=== PATIENT | male | born 1955 | race Hispanic/Latino ===

== ENCOUNTER 2016-09-18 12:42 | Emergency (ER) | payer MEDICAID ==
[2016-09-18 12:42] VITALS: BMI 31.5
[2016-09-18 12:50] VITALS: BP 116/71; PULSE 74; RESP 18; TEMP 99; O2SAT 99
--- NOTE | 2016-09-18 13:38 | ED PDOC ---
HPI: Trauma/Fall - HPI Time Seen by Provider: 09/18/16 12:58 Chief Complaint (Nursing): Abnormal Skin Integrity History Per: Patient History/Exam Limitations: no limitations Onset/Duration Of Symptoms: Hrs Additional Complaint(s): 61-year-old male, pMHx includes HIV, Hypertension, COPD, Depression and Anxiety , presents to the emergency department with complaints of mechanical fall. Patient states he tripped and fell last night, sustaining injury to the left side of his face and head. Denies headache, dizziness, loss of consciousness, peripheral weakness/parasthesias, neck pain, or any other injury. No other complaints at this time Past Medical History Reviewed: Historical Data, Nursing Documentation, Vital Signs Vital Signs: Last Vital Signs Temp 99.0 F 09/18/16 12:45 Pulse 74 09/18/16 12:45 Resp 18 09/18/16 12:45 BP 116/71 09/18/16 12:45 Pulse Ox 99 09/18/16 13:45 - Medical History PMH: Anxiety, COPD, Depression, HIV (AIDS - Unknown CD4 count ), HTN, Pneumonia - Family History Family History: States: Unknown Family Hx - Home Medications Home Medications: Ambulatory Orders Medication Instructions Recorded Darunavir [Prezista] 800 mg PO DAILY 08/10/14 Methadone 10 mg PO BID PRN 08/10/14 Ritonavir [Norvir] 100 mg PO DAILY 08/10/14 Amitriptyline HCl 100 mg PO HS 09/22/15 Clonazepam [Klonopin] 1 mg PO QAM 09/22/15 Clonazepam [Klonopin] 2 mg PO HS 09/22/15 Dapsone 100 mg PO DAILY 09/22/15 Dolutegravir Sodium [Tivicay] 50 mg PO DAILY 09/22/15 PARoxetine [Paxil] 30 mg PO DAILY 09/22/15 Rilpivirine HCl [Edurant] 25 mg PO DAILY 09/22/15 Dapsone 100 mg PO DAILY #0 tab 09/27/15 Naproxen [Naprosyn] 500 mg PO Q12H #20 tab 09/18/16 - Allergies Allergies/Adverse Reactions: Allergies Allergy/AdvReac Type Severity Reaction Status Date / Time Penicillins Allergy REDNESS Verified 09/18/16 12:45 sulfamethoxazole Allergy FATIGUE Verified 09/25/15 20:34 [From Bactrim] trimethoprim [From Bactrim] Allergy FATIGUE Verified 09/25/15 20:34 Review of Systems ROS Statement: Except As Marked, All Systems Reviewed And Found Negative Constitutional: Negative for: Fever Cardiovascular: Negative for: Chest Pain, Palpitations Respiratory: Negative for: Shortness of Breath Gastrointestinal: Negative for: Nausea, Vomiting Musculoskeletal: Negative for: Neck Pain, Back Pain Skin: Negative for: Rash Neurological: Negative for: Weakness, Numbness, Headache, Dizziness Physical Exam - Reviewed Nursing Documentation Reviewed: Yes Vital Signs Reviewed: Yes - Physical Exam Appears: Positive for: Non-toxic, No Acute Distress Head Exam: Positive for: ATRAUMATIC, NORMOCEPHALIC Skin: Positive for: Warm, Dry. Negative for: Rash Eye Exam: Positive for: EOMI, PERRL, Periorbital swelling (left), Periorbital tenderness (left), Other (superficial laceration to left periorbital area) Neck: Positive for: Painless ROM Cardiovascular/Chest: Positive for: Regular Rate, Rhythm Respiratory: Positive for: Normal Breath Sounds. Negative for: Accessory Muscle Use, Respiratory Distress Extremity: Positive for: Normal ROM Neurologic/Psych: Positive for: Alert, Oriented (no focal neuro deficits). Negative for: Motor/Sensory Deficits - Laboratory Results Result Diagrams: 09/18/16 13:26 09/18/16 13:26 - ECG O2 Sat by Pulse Oximetry: 99 Medical Decision Making Medical Decision Making: Impression: mechanical fall Plan: * CT Head, Spine, Orbits/Facial * CMP * CBC * Reassess and Disposition Scribe Attestation: Documented by Alton Cronin acting as a scribe for Adilson Hill MD. Provider Attestation: All medical record entries made by the Scribe were at my direction and personally dictated by me. I have reviewed the chart and agree that the record accurately reflects my personal performance of the history, physical exam, medical decision making, and the department course for this patient. I have also personally directed, reviewed, and agree with the discharge instructions and disposition. Disposition - Clinical Impression Clinical Impression: Periorbital hematoma of left eye - Patient ED Disposition Is Patient to be Admitted: No Counseled Patient/Family Regarding: Studies Performed, Diagnosis, Need For Followup, Rx Given - Disposition Disposition: Routine/Home Disposition Time: 15:02 Condition: FAIR Prescriptions: Naproxen [Naprosyn] 500 mg PO Q12H #20 tab Instructions: Black Eye (ED), Contusion in Adults (ED), Hematoma (ED)
[2016-09-18 13:46] LABS: BASO # 0.1 K/uL (0.0-0.2); BASO % 0.9 % (0.0-2.0); EOS # 0.1 K/uL (0.0-0.7); EOS % 1.8 % (0.0-4.0); HEMATOCRIT 33.2 % (35.0-51.0); LYMPH # 2.9 K/uL (1.0-4.3); LYMPH % 42.8 % (20.0-40.0); MEAN CORPUSCULAR HGB CONC 32.9 g/dL (33.0-37.0); MONO # 0.6 K/uL (0.0-0.8); MONO % 9.3 % (0.0-10.0); NEUT # 3.1 K/uL (1.8-7.0); NEUT % 45.2 % (50.0-75.0); NRBC % 0.2 % (0.0-0.0); RED CELL DISTRIBUTION WIDTH 16.1 % (11.5-14.5); WHITE BLOOD COUNT 6.9 K/uL (4.8-10.8)
[2016-09-18 13:47] LABS: MEAN CELL VOLUME 91.1 fl (80.0-94.0)
[2016-09-18 13:55] LABS: ALB/GLOB RATIO 0.8 (1.0-2.1); ALKALINE PHOSPHATASE 171 U/L (38-126); ALT/SGPT 77 U/L (21-72); AST/SGOT 105 U/L (17-59); BILIRUBIN,TOTAL 0.8 mg/dl (0.2-1.3); BLOOD UREA NITROGEN 27 mg/dl (9-20); CALCIUM 8.7 mg/dL (8.4-10.2); CARBON DIOXIDE 24 mmol/L (22-30); CHLORIDE 105 mmol/L (98-107); GFR AFRICAN-AMERICAN > 60; GLUCOSE,RANDOM 117 mg/dL (75-110); POTASSIUM 4.5 MMOL/L (3.6-5.0); SODIUM 144 mmol/l (132-148); TOTAL PROTEIN 8.8 G/DL (6.3-8.2)
--- NOTE | 2016-09-18 14:29 | CT ---
PROCEDURE: CT HEAD WITHOUT CONTRAST. HISTORY: r/o bleed COMPARISON: Comparison is made to the previous study dated 09/22/2015 TECHNIQUE: Axial computed tomography images were obtained through the head/brain without intravenous contrast. Radiation dose: Total exam DLP = 1612.66 mGy-cm. FINDINGS: HEMORRHAGE: No intracranial hemorrhage. BRAIN: No mass effect or edema. No atrophy or chronic microvascular ischemic changes. VENTRICLES: Unremarkable. No hydrocephalus. CALVARIUM: Unremarkable. PARANASAL SINUSES: Unremarkable as visualized. No significant inflammatory changes. MASTOID AIR CELLS: Unremarkable as visualized. No inflammatory changes. OTHER FINDINGS: None. IMPRESSION: No evidence of acute intracranial hemorrhage intracranial collection mass effect or midline shift.
--- NOTE | 2016-09-18 14:54 | CT ---
PROCEDURE: CT Cervical Spine without contrast HISTORY: Trauma COMPARISON: None available. TECHNIQUE: Axial computed tomography images were obtained of the cervical spine without the use of intravenous contrast. Coronal and sagittal reformatted images were created and reviewed. Radiation dose: Total exam DLP = 570.88 mGy-cm. FINDINGS: VERTEBRAE: No evidence of acute displaced fracture or subluxation. No evidence of destructive bony lesion. DISCS/SPINAL CANAL/NEURAL FORAMINA: Moderate to mildly severe degenerative changes are seen at the lower cervical spine. Severe narrowing of the disc spaces noted at C5-C6 and C6-C7. Multilevel osteophyte disc bulging complex more prominent at the lower cervical spine. PARASPINAL SOFT TISSUES: Unremarkable. OTHER FINDINGS: None. IMPRESSION: Moderate to mildly severe degenerative changes. No CT evidence of acute displaced fracture or subluxation.
--- NOTE | 2016-09-18 15:00 | CT ---
PROCEDURE: CT ORBITS WITHOUT CONTRAST. HISTORY: trauma COMPARISON: None available. TECHNIQUE: Axial CT images of the orbits were obtained. Coronal and sagittal reformats were generated. Radiation dose: Total exam DLP = 774.22 mGy-cm. FINDINGS: RIGHT ORBIT: RIGHT BONY ORBIT: Normal. RIGHT INTRAORBITAL STRUCTURES: Globe: Normal. Extraocular muscles: Normal. Post septal space: Normal. Optic Nerve: Normal. Lacrimal Apparatus: Normal. RIGHT PRESEPTAL SOFT TISSUES: Normal. LEFT ORBIT: LEFT BONY ORBIT: No evidence of acute fracture. LEFT INTRAORBITAL STRUCTURES: Globe: Normal. Extraocular muscles: Normal. Post septal space: Normal Optic Nerve: Normal. . Lacrimal Apparatus: Normal. LEFT PRESEPTAL SOFT TISSUES: Moderate soft tissue swelling at the left preseptal region extending to the left frontal temporal region OTHER: None. IMPRESSION: No evidence of acute fracture. No evidence of postseptal collection or hematoma. Moderate left periorbital soft tissue swelling and subcutaneous hematoma.
== END 2016-09-18 15:16 | disposition home or self-care (01) ==
LOC: H.ER 12:42
DX: H05.232 Hemorrhage of left orbit (principal); W01.0XXA Fall on same level from slipping, tripping and stumbling without subsequent striking against object, initial encounter; Y92.89 Other specified places as the place of occurrence of the external cause; I10 Essential (primary) hypertension

== ENCOUNTER 2016-09-19 02:21 | Emergency (ER) | payer MEDICAID ==
[2016-09-19] MEDS ORDERED: Oxycodone/Acetaminophen 5/325 mg Tab PO STA (02:43)
[2016-09-19 02:44] VITALS: BMI 30.1
[2016-09-19 02:49] VITALS: RESP 16; TEMP 99; O2SAT 100
--- NOTE | 2016-09-19 02:54 | ED PDOC ---
HPI: Trauma/Fall - HPI Time Seen by Provider: 09/19/16 02:33 Chief Complaint (Nursing): Trauma Chief Complaint (Provider): RUE injury History Per: Patient History/Exam Limitations: no limitations Onset/Duration Of Symptoms: Sudden Onset Additional Complaint(s): Dallas Silver is a 61 y/o male, with a past medical history of HIV and opiate addiction, presenting to the ER on 09/19/2016 for an acute onset of right shoulder pain s/p mechanical fall. Patient states he stepped and tripped on a broom that was laying on the kitchen floor, forcing him to land on his shoulder. Patient was seen in the ED for a similar presentation today and was discharged routinely after having imaging tests of his orbits performed. Pain at present is localized to the right shoulder and is exacerbated with movement, although he is able to move his arm. He denies any concurrent head injury or lost of consciousness. Past Medical History Vital Signs: Last Vital Signs Temp 99 F 09/19/16 02:47 Pulse 90 09/19/16 02:47 Resp 16 09/19/16 02:47 BP 159/90 H 09/19/16 02:47 Pulse Ox 100 09/19/16 02:47 - Medical History PMH: Anxiety, COPD, Depression, HIV (AIDS - Unknown CD4 count ), HTN, Pneumonia - Surgical History Surgical History: No Surg Hx - Family History Family History: States: Unknown Family Hx - Social History Current smoker - smoking cessation education provided: Yes (1 pack/day) - Home Medications Home Medications: Ambulatory Orders Medication Instructions Recorded Darunavir [Prezista] 800 mg PO DAILY 08/10/14 Methadone 10 mg PO BID PRN 08/10/14 Ritonavir [Norvir] 100 mg PO DAILY 08/10/14 Amitriptyline HCl 100 mg PO HS 09/22/15 Clonazepam [Klonopin] 1 mg PO QAM 09/22/15 Clonazepam [Klonopin] 2 mg PO HS 09/22/15 Dapsone 100 mg PO DAILY 09/22/15 Dolutegravir Sodium [Tivicay] 50 mg PO DAILY 09/22/15 PARoxetine [Paxil] 30 mg PO DAILY 09/22/15 Rilpivirine HCl [Edurant] 25 mg PO DAILY 09/22/15 Dapsone 100 mg PO DAILY #0 tab 09/27/15 Naproxen [Naprosyn] 500 mg PO Q12H #20 tab 09/18/16 traMADol [Ultram] 50 mg PO TID #8 tab 09/19/16 - Allergies Allergies/Adverse Reactions: Allergies Allergy/AdvReac Type Severity Reaction Status Date / Time Penicillins Allergy REDNESS Verified 09/19/16 02:44 sulfamethoxazole Allergy FATIGUE Verified 09/19/16 02:44 [From Bactrim] trimethoprim [From Bactrim] Allergy FATIGUE Verified 09/19/16 02:44 Review of Systems ROS Statement: Except As Marked, All Systems Reviewed And Found Negative Cardiovascular: Negative for: Light Headedness Musculoskeletal: Positive for: Shoulder Pain (right) Neurological: Negative for: Weakness, Numbness, Dizziness Physical Exam - Reviewed Nursing Documentation Reviewed: Yes Vital Signs Reviewed: Yes - Physical Exam Appears: Positive for: Non-toxic, No Acute Distress Head Exam: Positive for: NORMOCEPHALIC. Negative for: ATRAUMATIC (large peritortibal ecchymosis from previous injury) Skin: Positive for: Normal Color Eye Exam: Positive for: Normal appearance, EOMI, PERRL Neck: Positive for: Normal, Painless ROM, Supple Cardiovascular/Chest: Positive for: Regular Rate, Rhythm. Negative for: Murmur Respiratory: Positive for: Normal Breath Sounds. Negative for: Respiratory Distress Extremity: Positive for: Normal ROM (full ROM). Negative for: Deformity, Swelling Neurologic/Psych: Positive for: Alert, Oriented (x3). Negative for: Motor/ Sensory Deficits - ECG O2 Sat by Pulse Oximetry: 100 - Critical Care Total Time (In Min): 30 Medical Decision Making Medical Decision Makin:33 Initial Impression- 61 y/o male with right shoulder pain s/p mechanical fall Initial Plan- * Percocet 1 tab PO * XR Shoulder Right * Re-assess 06:38 PROCEDURE: REDUCTION Performed by the emergency provider Consent: Informed consent, after discussion of the risks, benefits, and alternatives to the procedure, was obtained. Location: Right Shoulder Sedation: 20 mg Propofol Pre-procedure neurovascular status: Distal neurovascular status intact. Technique: Modified Hippocratic technique applied to reduce right anterior shoulder dislocation. Post-procedure neurovascular status: Distal neurovascular status remains intact. Confirmation: Post-reduction films confirm reduction. See post-procedure X-Ray interpretation. Post-procedure: Patient tolerated the procedure well with no immediate complications. CT RUE FINDINGS: Bones/joints: Anterior dislocation of humeral head with impaction on glenoid. Comminuted fracture superolateral aspect of humeral head/tuberosity. Soft tissues: Soft tissue swelling about shoulder girdle Lungs: Several calcified granulomas. Mild emphysematous changes. Mild interlobular septal thickening, nonspecific. IMPRESSION: 1. Fracture/dislocation. 2. Incidental/non-acute findings are described above. Referred pt to Dr. Russell, ortho specialist. Pt will schedule follow up within 1-2 days. Advised to return if condition persists or worsen. Clinical Impression- Humoral Head Tuberosity Fracture Documented by Karlie Oliver, acting as a scribe for Tello Underwood MD. All medical record entries made by the Scribe were at my direction and personally dictated by me. I have reviewed the chart and agree that the record accurately reflects my personal performance of the history, physical exam, medical decision making, and the department course for this patient. I have also personally directed, reviewed, and agree with the discharge instructions and disposition. Disposition - Clinical Impression Clinical Impression: Anterior shoulder dislocation, Closed fracture of greater tuberosity of humerus with routine healing - Disposition Referrals: Darcy Perez MD [Staff Provider] - Disposition: Routine/Home Disposition Time: 05:00 Condition: IMPROVED Prescriptions: traMADol [Ultram] 50 mg PO TID #8 tab Instructions: Shoulder Dislocation (ED)
[2016-09-19] MEDS ORDERED: Oxycodone/Acetaminophen 5/325 mg Tab ONE (02:59)
--- NOTE | 2016-09-19 04:47 | RAD ---
EXAM: XR Right Shoulder, 1 View. CLINICAL HISTORY: 61 years old, male; Pain; Shoulder; Right; Additional info: Shoulder pain TECHNIQUE: One view of the right shoulder. COMPARISON: No relevant prior studies available. FINDINGS: Bones/joints: Anterior dislocation of humeral head with respect to glenoid. Apparent irregularity inferior glenoid/superolateral humeral head, concerning for fracture. Soft tissues: Unremarkable. IMPRESSION: 1. Anterior dislocation with possible fracture. Suggest CT for better delineation. 2. Incidental/non-acute findings are described above.
[2016-09-19] MEDS ORDERED: diaZEpam 10 mg/2 ml Inj IVP ONE (04:50)
[2016-09-19] MEDS ORDERED: HYDROmorphone 0.5 mg/0.5 ml ISec IVP STA (04:50)
[2016-09-19] MEDS ORDERED: Sodium Chloride 0.9% 1,000 ML IV STA (04:51)
--- NOTE | 2016-09-19 05:46 | RAD ---
EXAM: XR Right Shoulder, 1 View. CLINICAL HISTORY: 61 years old, male; Pain; Shoulder; Right; Additional info: Post reduction TECHNIQUE: One view of the right shoulder. COMPARISON: CR - SHOULDER RIGHT ONE VIEW (OR) 09/19/2016 4:08:06 AM FINDINGS: Bones/joints: Anterior dislocation of humeral head with respect to glenoid. Soft tissues: Unremarkable. IMPRESSION: 1. Persistent anterior dislocation. 2. Incidental/non-acute findings are described above.
[2016-09-19] MEDS ORDERED: Propofol 10 mg/ml Inj (20 ML) IV ONE (06:31)
--- NOTE | 2016-09-19 06:31 | CT ---
EXAM: CT Right Upper Extremity Without Intravenous Contrast, Shoulder. CLINICAL HISTORY: 61 years old, male; Pain; Shoulder; Right; Additional info: Possibel fracture associated with dislocation TECHNIQUE: Axial computed tomography images of the right shoulder without intravenous contrast. This CT exam was performed using one or more of the following dose reduction techniques: automated exposure control, adjustment of the mA and/or kV according to patient size, and/or use of iterative reconstruction technique. Coronal and sagittal reformatted images were created and reviewed. COMPARISON: No relevant prior studies available. FINDINGS: Bones/joints: Anterior dislocation of humeral head with impaction on glenoid. Comminuted fracture superolateral aspect of humeral head/tuberosity. Soft tissues: Soft tissue swelling about shoulder girdle Lungs: Several calcified granulomas. Mild emphysematous changes. Mild interlobular septal thickening, nonspecific. IMPRESSION: 1. Fracture/dislocation. 2. Incidental/non-acute findings are described above.
[2016-09-19 06:47] VITALS: BP 188/112; PULSE 83
--- NOTE | 2016-09-19 09:00 | RAD ---
PROCEDURE: Radiographs of the Right Shoulder HISTORY: post reduction COMPARISON: No prior. FINDINGS: BONES: No evidence of acute fracture or dislocation JOINTS: Normal. Glenohumeral and acromioclavicular joints preserved. No osteoarthritis. SOFT TISSUES: Normal. OTHER FINDINGS: None. IMPRESSION: Interval reduction of the previously seen anterior dislocation of the right shoulder.
== END 2016-09-19 07:00 | disposition home or self-care (01) ==
LOC: H.ER 02:21
DX: S43.014A Anterior dislocation of right humerus, initial encounter (principal); Z71.6 Tobacco abuse counseling; W01.0XXA Fall on same level from slipping, tripping and stumbling without subsequent striking against object, initial encounter; Y93.9 Activity, unspecified

== ENCOUNTER 2017-06-30 20:45 | Inpatient (IN) | payer MEDICAID ==
[2017-06-30 20:46] VITALS: BMI 30.1
--- NOTE | 2017-06-30 23:05 | ED PDOC ---
Addendum entered and electronically signed by Alicia Epps PA-C 07/01/17 04:57: Addendum Addendum: 07/01/17 04:54 PE: lacerations: 1st noted on left eye lid-flap laceration partial length of eyelid with mild active bleeding. 2nd laceraiton noted to chin 2cm mild active bleeding head: ? depression noted to orbital b/l no hyphema no subconjunctival hemorrhage. no bleeding in nares. swelling to face appreciated. . Original Note: HPI: Altered Mental Status Chief Complaint (Provider): AMS History Per: Patient, Family History/Exam Limitations: None Additional Complaint(s): 62yo M in Ed for eval of AMS hx of AIDS/HTN/depression- according to mother she believes pt took Elavil 5tabs because she noted 5tabs missing from the Rx bottle. Pt not alert to time or place. pt is disoriented. pt sustained injuries to eye lid and chin. pt very aggressive while in EMS ride and while in ER-pt unwilling to cooperate. according to mother pt has never presented in such fashion. mother doesn't appreciate slurred speech <Alicia Epps - Last Filed: 07/01/17 04:54> <Pamela Montenegro - Last Filed: 07/01/17 16:14> Time Seen by Provider: 06/30/17 21:41 Chief Complaint (Nursing): Altered Mental Status Supervising Attending Note - Supervising Attending Note The Documented history was done by the: Physician [employer]ous Materials Tanker Driver The documented physical exam was done by the: Physician [employer] Tanker Driver The documented procedures were done by the: Attending Physician - Attestation: I have personally seen and examined this patient.: Yes I have fully participated in the care of the patient.: Yes I have reviewed all pertinent clinical information: Yes - Notes: Notes:: 62 yo with AMS and facial injury, possible Elavil OD. <Pamela Montenegro - Last Filed: 07/01/17 16:14> Past Medical History Reviewed: Historical Data, Nursing Documentation, Vital Signs Vital Signs: Last Vital Signs Temp Pulse 107 H 06/30/17 20:48 Resp 25 H 06/30/17 20:48 BP 158/61 H 06/30/17 20:48 Pulse Ox 99 06/30/17 20:48 - Medical History PMH: Anxiety, COPD, Depression, HIV (AIDS - Unknown CD4 count ), HTN, Pneumonia - Family History Family History: States: Unknown Family Hx <Alicia Epps - Last Filed: 07/01/17 04:54> Vital Signs: Last Vital Signs Temp 98.1 F 07/01/17 12:00 Pulse 91 H 07/01/17 12:00 Resp 14 07/01/17 12:00 BP 149/93 H 07/01/17 12:00 Pulse Ox 97 07/01/17 12:00 <MontenegroPamela arboleda F - Last Filed: 07/01/17 16:14> - Home Medications Home Medications: Ambulatory Orders Medication Instructions Recorded Darunavir [Prezista] 800 mg PO DAILY 08/10/14 Methadone 10 mg PO BID PRN 08/10/14 Ritonavir [Norvir] 100 mg PO DAILY 08/10/14 Amitriptyline HCl 100 mg PO HS 09/22/15 Clonazepam [Klonopin] 1 mg PO QAM 09/22/15 Clonazepam [Klonopin] 2 mg PO HS 09/22/15 Dapsone 100 mg PO DAILY 09/22/15 Dolutegravir Sodium [Tivicay] 50 mg PO DAILY 09/22/15 PARoxetine [Paxil] 30 mg PO DAILY 09/22/15 Rilpivirine HCl [Edurant] 25 mg PO DAILY 09/22/15 Dapsone 100 mg PO DAILY #0 tab 09/27/15 Naproxen [Naprosyn] 500 mg PO Q12H #20 tab 09/18/16 traMADol [Ultram] 50 mg PO TID #8 tab 09/19/16 - Allergies Allergies/Adverse Reactions: Allergies Allergy/AdvReac Type Severity Reaction Status Date / Time Penicillins Allergy REDNESS Verified 09/19/16 02:44 sulfamethoxazole Allergy FATIGUE Verified 09/19/16 02:44 [From Bactrim] trimethoprim [From Bactrim] Allergy FATIGUE Verified 09/19/16 02:44 Review of Systems ROS Statement: Except As Marked, All Systems Reviewed And Found Negative Review Of Systems: ROS cannot be obtained secondary to pt's inabilty to answer questions. <Alicia Epps - Last Filed: 07/01/17 04:54> Physical Exam - Reviewed Nursing Documentation Reviewed: Yes Vital Signs Reviewed: Yes - Physical Exam Appears: Positive for: No Acute Distress, Uncomfortable Head Exam: Positive for: NORMAL INSPECTION, NORMOCEPHALIC. Negative for: ATRAUMATIC (facial lacerations noted to left eyelid and chin) Skin: Positive for: Dry. Negative for: Normal Color (red in face) Eye Exam: Positive for: EOMI, Normal appearance, PERRL Cardiovascular/Chest: Positive for: Tachycardia Respiratory: Positive for: Normal Breath Sounds. Negative for: Decreased Breath Sounds, Accessory Muscle Use, Respiratory Distress Gastrointestinal/Abdominal: Positive for: Normal Exam, Bowel Sounds, Soft Back: Positive for: Normal Inspection Extremity: Positive for: Normal ROM Neurologic/Psych: Positive for: Alert, Oriented <Alicia Epps - Last Filed: 07/01/17 04:54> - Laboratory Results Result Diagrams: 06/30/17 23:24 07/01/17 00:06 - ECG O2 Sat by Pulse Oximetry: 99 - Progress ED Course And Treament: Pt was very combative attempting to get out of bed and threat to staff and to self. pt is oriented to place or time. attempts made to re-direct pt. however pt required ativan 2mgIM haldol 5mg IM and 4point restraints pt will need: CT of head/face and the following labs with cardiac monitoring and EKG. EKG however does demonstrate pronlonged QRS:132 and [id number] Pision control called, consulted Cristian. concerns for anticholingeric effects- pt came to ER tachycardic and flused. normal temperature and RR 25. Pt will need VBG inaddition to. Orders Category Date Time Status ABG Shock Panel [ARTERIAL BLOOD GAS SHOCK PANEL] Stat BG 06/30/17 23:04 Ordered HEAD W/O CONTRAST [CT] Stat CT 06/30/17 20:58 Ordered MAXILLOFACIAL W/O CONTRAST [CT] Stat CT 06/30/17 23:08 Ordered ELECTROCARDIOGRAM Stat Cardiology 06/30/17 20:57 Ordered ACETAMINOPHEN Stat Chem 06/30/17 22:25 Ordered ALCOHOL SERUM Stat Chem 06/30/17 21:00 Ordered COMP METABOLIC PANEL Stat Chem 06/30/17 21:00 Ordered DRUG SCREEN, URINE Stat Chem 06/30/17 20:57 Uncollected SALICYLATE Stat Chem 06/30/17 22:25 Ordered TROPONIN I Stat Chem 06/30/17 21:00 Ordered EKG-ED [EDNURTX] STAT ED Care 06/30/17 20:58 Active CHEST PORTABLE [RAD] Stat Exams 06/30/17 23:09 Ordered CBC (WITH DIFFERENTIAL) Stat AGUSTIN 06/30/17 21:00 Ordered PARTIAL THROMBOPLASTIN TIME [COAG] Stat AGUSTIN 06/30/17 21:00 Ordered PROTHROMBIN TIME [COAG] Stat AGUSTIN 06/30/17 21:00 Ordered Haloperidol Lactate [Haldol] Med 06/30/17 22:08 Discontinued 5 mg .ROUTE .STK-MED ONE Haloperidol Lactate [Haldol] Med 06/30/17 22:04 Discontinued 5 mg IM STAT STA LORazepam [Ativan] Med 06/30/17 21:19 Discontinued 2 mg IM STAT STA LORazepam [Ativan] Med 06/30/17 23:01 Discontinued 2 mg IM STAT STA Box Sealing Machine Catcher ONCE NURSING 06/30/17 20:57 Active IV Insertion (Saline Lock) ONCE NURSING 06/30/17 20:57 Active Restraint: Violent or harm to self/other As Ordered PT Status 06/30/17 22:04 Ordered 1:1 Observation CONT Pt Care 06/30/17 21:27 Active Glucose, Blood, POC STAT Pt Care 06/30/17 20:58 Active URINALYSIS Stat URINALYSIS 06/30/17 20:59 Uncollected <Alicia Epps - Last Filed: 07/01/17 04:54> - Laboratory Results Result Diagrams: 07/01/17 06:35 07/01/17 00:06 - Critical Care Total Time (In Min): 60 <Pamela Montenegro - Last Filed: 07/01/17 16:14> Medical Decision Making Medical Decision Making: :Pt very aggressive in ER, unable to cooperate without harm to self or other for blood draw and CT of head. Pt with acute mental status changes. Pt required a total of 6mg of Ativan, 5 mg Haldol and 4mg Versed. pt is now asleep-no longer combative. Poison control contacted. suggested EKG and ABG-ABG shows normal pH at 7.45 however EKG shows prolonged QRS duration and QT/QTc with RBB indicative of antichologrnic effect or Overdose. suggest Bicarb to increase pH to higher, considering current pH is at lower end of normal , should be btw 7.345-7.55. Pt will get 1amp of Bicarbonate and have repeat EKG and ABG. PT with laceration at lid of left eye-flap. very sensitive area with friable skin. Plastic consulted-MD Jose who will see pt in the AM as an inpt on ICU. suggest dressing be applied to wounds. CT of face: noted fractures. will get IV clindamycin CT scan of head:negative CT Maxillofacial Without Intravenous Contrast Bones/joints: Mildly depressed fracture floor of left orbit. Mildly depressed fracture medial wall of left orbit. Nondisplaced, buckled fracture lateral wall of left orbit. Minimally displaced fracture anterior wall of left maxillary sinus. Nondisplaced fracture posteromedial wall of left maxillary sinus. Nondisplaced fracture left zygomatic arch. Minimally displaced fracture left nasal bone, age indeterminate. Degenerative changes of temporomandibular joints. Degenerative changes of cervical spine. Soft tissues: LEFT periorbital/maxillary soft tissue swelling. Orbits: Mild stranding/air within left orbit. Sinuses: Partial opacification of LEFT ethmoid sinus. Mild mucosal thickening of RIGHT ethmoid, LEFT sphenoid sinuses. Air-fluid level/hemorrhage within LEFT maxillary sinus. PT will be admitted to ICU for AMS and OD on elavil. time:350 pt received 1amp of bicarb and repeat EKG shows QRS duration decreased from 137 to 136. MD Leighann made aware. Pt will get a total of an additional 2 amps of bicarb and have repeat EKG. after two amp of of bicarb, QRS duration is 138, however the Qtc is 506 from the first EKG that showed a QTc of 510. improvement is noted. MD Jose Luis made aware. pH on repeat ABG noted to be 7.53 <Alicia Epps - Last Filed: 07/01/17 04:54> Disposition - Patient ED Disposition Is Patient to be Admitted: Yes - Disposition Disposition Time: 04:51 - Pt Status Changed To: Hospital Disposition Of: Inpatient - Admit Certification Admit to Inpatient:: After my assessment, the patient will require hospitalization for at least two midnights. This is because of the severity of symptoms shown, intensity of services needed, and/or the medical risk in this patient being treated as an outpatient. - POA Present On Arrival: None <Alicia Epps - Last Filed: 07/01/17 04:54> <Pamela Montenegro - Last Filed: 07/01/17 16:14> - Clinical Impression Clinical Impression: Altered mental status, Overdose - Disposition Condition: FAIR
[2017-07-01 00:19] LABS: ABG ALLEN TEST YES; ARTERIAL BLOOD GAS HCO3 25.5 mmol/L (21-28); ARTERIAL BLOOD GAS O2 SAT 100.7 % (95-98); ARTERIAL BLOOD GAS PCO2 35 mm/Hg (35-45); ARTERIAL BLOOD GAS PH 7.45 (7.35-7.45); ARTERIAL BLOOD GAS PO2 88 mm/Hg (80-100); ARTERIAL BLOOD GAS TCO2 25.4 mmol/L (22-28)
[2017-07-01] MEDS ORDERED: Sodium Chloride 0.9% 1,000 ML IV STA (00:29)
[2017-07-01 00:46] LABS: BASO # 0.1 K/uL (0.0-0.2); BASO % 0.6 % (0.0-2.0); EOS % 0.1 % (0.0-4.0); HEMOGLOBIN 14.8 g/dL (12.0-18.0); LYMPH # 2.6 K/uL (1.0-4.3); MEAN CORPUSCULAR HEMOGLOBIN 27.6 pg (27.0-31.0); MEAN CORPUSCULAR HGB CONC 32.1 g/dL (33.0-37.0); MEAN PLATELET VOLUME 10.5 fl (7.2-11.7); MONO # 0.5 K/uL (0.0-0.8); MONO % 3.9 % (0.0-10.0); NEUT # 9.7 K/uL (1.8-7.0); NEUT % 75.4 % (50.0-75.0); NRBC % 0.1 % (0.0-0.0); RBC 5.35 Mil/uL (4.40-5.90); RED CELL DISTRIBUTION WIDTH 15.6 % (11.5-14.5); WHITE BLOOD COUNT 12.8 K/uL (4.8-10.8)
--- NOTE | 2017-07-01 01:21 | CP.PCM.HP ---
History of Present Illness - History of Present Illness History of Present Illness: 62 yo ,m, PMhx/o Depression, Anxiety, HIV (CD4 326,viral load undetect 01/2017), Hep C presents to ED with AMS and history is taken by his mother who states that he fell last night about 7:30 pm. She did not saw him when he fell but states that she went down stairs at home to first floor and saw him watching TV and she noticed that he had a cut in his chin and left eye and also he was speaking nonsense things, but not slurred speech. She states that he received a bottel of medication yesteday 5 pm Elavil and she noted 5 tabs missing from the RX bottle, but she states that he takes several kind of medications. She reports that yesterday in the morning he was normal at home and she denies any symptoms before noticing him like this, denies illicit drugs or ETOH. She denies chest pain, SOB, n.v.abd pain, headache, dizziness. Patient is seen in ED restrained, combative, even after haldol, ativan meds, consfused and speaking nonsense word during interview but not with slurred speech. uncooperative to physical exam PMD: Dr Mary PMHx: HIV, HTN, Depression, Anxiety, Hep C Allergies:Penicillin, Iodine, Sulfa Meds: Tivicay 50 mg daily, Norvir 100 mg daily, Prezista 800 mg daily, Edurant 25 mg daily, Percocet 5/325 1 tb bid, Gabapentin 800 mg BID PFhx: noncontributory PSurghx: tonsillectomy 1978, b/l cataracts 2000 PShx: neg ETOH, rect drugs. Smoker occs Code status: full code ED Course: VS: HR: 107, RR : 25, BP: 158/61 PE:combative, confused, AMS LAbs: leukocytosis 12.8, left shift deviation , AVG normal Imaging: CT head, face,CXR, EKG :QRS:132 and [id number] Meds: Haldol 5 mg IM, Ativan 2mg IM, fluids NS 1L Present on Admission - Present on Admission Any Indicators Present on Admission: No History of DVT/PE: No History of Uncontrolled Diabetes: No Urinary Catheter: No Decubitus Ulcer Present: No Review of Systems - Review of Systems Review of Systems: unable to review due to patient with AMS. See HPI for h/o taken by patient's mother Past Patient History - Infectious Disease Hx of Infectious Diseases: None - Past Medical History & Family History Past Medical History?: Yes - Past Social History Smoking Status: Smoker Currrent Status Unknown - CARDIAC Hx Hypertension: Yes - PULMONARY Hx Chronic Obstructive Pulmonary Disease (COPD): Yes Hx Pneumonia: Yes - NEUROLOGICAL HX Cerebrovascular Accident: No - HEENT Hx HEENT Problems: No - RENAL Hx Renal Failure: No - ENDOCRINE/METABOLIC Hx Diabetes Mellitus Type 1: No Hx Diabetes Mellitus Type 2: No - HEMATOLOGICAL/ONCOLOGICAL Hx Human Immunodeficiency Virus (HIV): Yes (AIDS - Unknown CD4 count ) - INTEGUMENTARY Hx Dermatological Problems: Yes (Depigmented patches in extremities) - MUSCULOSKELETAL/RHEUMATOLOGICAL Hx Musculoskeletal Disorders: Yes Hx Falls: Yes - GASTROINTESTINAL Hx Gastrointestinal Disorders: No - GENITOURINARY/GYNECOLOGICAL Hx Genitourinary Disorders: No - PSYCHIATRIC Hx Anxiety: Yes Hx Depression: Yes Hx Substance Use: Yes - SURGICAL HISTORY Hx Surgeries: No - ANESTHESIA Hx Anesthesia: No Hx Anesthesia Reactions: No Hx Malignant Hyperthermia: No Meds Allergies/Adverse Reactions: Allergies Allergy/AdvReac Type Severity Reaction Status Date / Time Penicillins Allergy REDNESS Verified 09/19/16 02:44 sulfamethoxazole Allergy FATIGUE Verified 09/19/16 02:44 [From Bactrim] trimethoprim [From Bactrim] Allergy FATIGUE Verified 09/19/16 02:44 Physical Exam - Constitutional Appears: Combative, Agitated - Head Exam Additional comments: left eyelid abrasion 1,5 cm inferior side chin superficial laceration 2 cm - Eye Exam Additional comments: left eyelid abrasion 1,5 cm and ocular swelling, no cooperative to eye exam - ENT Exam ENT Exam: Mucous Membranes Moist - Respiratory Exam Respiratory Exam: Clear to Auscultation Bilateral. absent: Rales, Rhonchi, Wheezes - Cardiovascular Exam Cardiovascular Exam: Tachycardia - GI/Abdominal Exam GI & Abdominal Exam: Normal Bowel Sounds, Soft. absent: Guarding, Rebound, Tenderness - Extremities Exam Extremities exam: Positive for: normal inspection Additional comments: restrained to 4 ext - Neurological Exam Additional comments: confused, combative - Skin Additional comments: left eyelid abrasion 1,5 cm inferior side chin superficial laceration 2 cm Results - Vital Signs Recent Vital Signs: Last Vital Signs Temp 98.6 F 06/30/17 23:14 Pulse 88 06/30/17 23:51 Resp 20 06/30/17 23:51 BP 148/78 06/30/17 23:51 Pulse Ox 100 06/30/17 23:51 - Labs Result Diagrams: 06/30/17 23:24 07/01/17 00:06 Labs: Laboratory Results - last 24 hr 06/30/17 06/30/17 06/30/17 00:08 21:11 23:24 WBC 12.8 H D RBC 5.35 Hgb 14.8 D Hct 46.0 MCV 86.0 D MCH 27.6 MCHC 32.1 L RDW 15.6 H Plt Count 176 MPV 10.5 Neut % (Auto) 75.4 H Lymph % (Auto) 20.0 Hale % (Auto) 3.9 Eos % (Auto) 0.1 Baso % (Auto) 0.6 Neut # 9.7 H Lymph # 2.6 Hale # 0.5 Eos # 0.0 Baso # 0.1 pCO2 35 pO2 88 HCO3 25.5 ABG pH 7.45 ABG Total CO2 25.4 ABG O2 Saturation 100.7 H ABG Base Excess 0.7 Ruiz Test Yes ABG Potassium 3.9 A-a O2 Difference 125.0 Sodium 139.0 Chloride 109.0 H Glucose 137 H Lactate 2.7 H Vent Mode 4lnc FiO2 36.0 Crit Value Called To geraldo Epps Crit Value Called By [facility] Crit Value Read Back Y Blood Gas Notified Time 19 POC Glucose (mg/dL) 144 H Arterial Blood Potassium 3.9 Assessment & Plan - Assessment and Plan (Free Text) Plan: 62 yo ,m, PMhx/o , Depression, Anxiety, Hep C, HIV (CD4 326,viral load undetected 01/2017) admitted for AMS, fall, facial injury Assessment/Plan 1) AMS -may be secondary amitriptyline intox, multiple meds regimen, drug -Amitriptyline levels -Poison center consulted: suggested bicarb and repeat EKG, ABG -CT Head w/o contrast:CT Head: no intracranial hemorrhage. no mass, dilated perivascular space vs chronic lacunar infarct about right basal ganglia.no edema -acetaminophen, salicilate levels, urine tox, ETOH blood, TSH -Admit ICU -NPO -IV fluids NS -Neuro checks 2) Facial trauma with orbital fracture and zygomatic fracture -left eye abrasion, chin lac -CT maxillofacial w/o contrast: mild depressed fracture floor of left orbit, medial wall, lateral wall, fracture anterior wall left maxillary sinus and fracture left zygomatic arch -clindamycin -Plastic surgery consulted in ED: will see pt in the morning 3) QT prolongation -secondary amitriptilyne intox,paxil -s/p bicarb in Ed -f/u ekg, ABG 4) HIV -last CD4 326 01/2017 -viral load undetectable 01/2017 -hold HIV med for now -f/u CD4, viral load 5) Hep C -genotype 2 B -09/22/16 HCV noemí load 2 278 080 -pt during clinic visit refuse to go GI and treatment -f/u HCV viral load 6) Depression -hold meds due to AMS -recent started on amitriptyline 7) DVT Prophylaxis -SCD.possible surgery
--- NOTE | 2017-07-01 01:30 | CP.PCM.CON ---
History of Present Illness - History of Present Illness History of Present Illness: Attending: Dr Gill Reason for consult: Critical care Management Chief Complaint: Altered mental Status The Patient was seen and examined in the ED with his Mother. HPI: The hx was obtained from the Patient's mother and after review of the medical records. 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 He apparently had an unwitnessed fall at his home receiving laceration below the chin and the left eye lid. His mother found him to be confused, disoriented to time and place. Because of this he was brought to the ED. His Mother thinks that he took an overdose of Elavil as she noticed 5 tablets missing from the count.In the ED the patient was very agitated, aggressive and uncooperative having to receive multiple doses of Ativan and Haldol before being mildly sedated. PSH: Anxiety, Depression, COPD, HTN, Pneumonia, HIV( AIDS) PSH: Tonsillectomy; Cataract surgery SH: +ve for Substance abuse; No Alcohol; Unknown cigarette Smoking, Live in same house as family FH: States: Unknown Family Hx Allergies: Penicillins, Sulfamethoxazole, Trimethoprim Medication: Reviewed Review of Systems - Review of Systems Systems not reviewed;Unavailable: Altered Mental Status, Uncooperative Review of Systems: Review of system limited because of the patient being agitated and confused. Past Patient History - Infectious Disease Hx of Infectious Diseases: None - Past Medical History & Family History Past Medical History?: Yes - Past Social History Smoking Status: Smoker Currrent Status Unknown Chewing Tobacco Use: No Cigar Use: No Alcohol: None Drugs: Other Home Situation {Lives}: With Family - CARDIAC Hx Hypertension: Yes - PULMONARY Hx Chronic Obstructive Pulmonary Disease (COPD): Yes Hx Pneumonia: Yes - NEUROLOGICAL HX Cerebrovascular Accident: No - HEENT Hx HEENT Problems: No - RENAL Hx Renal Failure: No - ENDOCRINE/METABOLIC Hx Diabetes Mellitus Type 1: No Hx Diabetes Mellitus Type 2: No - HEMATOLOGICAL/ONCOLOGICAL Hx Human Immunodeficiency Virus (HIV): Yes (AIDS - Unknown CD4 count ) - INTEGUMENTARY Hx Dermatological Problems: Yes (Depigmented patches in extremities) - MUSCULOSKELETAL/RHEUMATOLOGICAL Hx Musculoskeletal Disorders: Yes Hx Falls: Yes - GASTROINTESTINAL Hx Gastrointestinal Disorders: No - GENITOURINARY/GYNECOLOGICAL Hx Genitourinary Disorders: No - PSYCHIATRIC Hx Anxiety: Yes Hx Depression: Yes - SURGICAL HISTORY Hx Surgeries: Yes Hx Tonsillectomy: Yes - ANESTHESIA Hx Anesthesia: Yes Hx Anesthesia Reactions: No Hx Malignant Hyperthermia: No Meds Allergies/Adverse Reactions: Allergies Allergy/AdvReac Type Severity Reaction Status Date / Time Penicillins Allergy REDNESS Verified 09/19/16 02:44 sulfamethoxazole Allergy FATIGUE Verified 09/19/16 02:44 [From Bactrim] trimethoprim [From Bactrim] Allergy FATIGUE Verified 09/19/16 02:44 Physical Exam - Constitutional Appears: Combative, Agitated, Confused - Head Exam Head Exam: NORMOCEPHALIC Additional comments: Laceration with blood clot at the left eye lid and below the chin - Eye Exam Additional comments: laceration at the upper left eye lid - ENT Exam ENT Exam: Mucous Membranes Dry, Normal External Ear Exam - Neck Exam Additional comments: Laceration below the chin - Respiratory Exam Respiratory Exam: Clear to Auscultation Bilateral. absent: Rales, Rhonchi, Wheezes - Cardiovascular Exam Cardiovascular Exam: REGULAR RHYTHM, +S1, +S2 - GI/Abdominal Exam GI & Abdominal Exam: Normal Bowel Sounds, Soft. absent: Mass, Organomegaly - Rectal Exam Rectal Exam: Deferred - Extremities Exam Extremities exam: Positive for: full ROM, normal inspection. Negative for: pedal edema - Back Exam Back exam: NORMAL INSPECTION - Neurological Exam Additional comments: Patient lethargic at present after receiving Ativan and Haldol, Moving all extremities, no facial droop, good motor tone, not responding directly to questioning at this time. - Psychiatric Exam Psychiatric exam: Flat Affect - Skin Skin Exam: Dry, Normal Color, Warm Results - Vital Signs Recent Vital Signs: Last Vital Signs Temp 98.6 F 06/30/17 23:14 Pulse 88 06/30/17 23:51 Resp 20 06/30/17 23:51 BP 148/78 06/30/17 23:51 Pulse Ox 99 07/01/17 01:26 - Labs Result Diagrams: 06/30/17 23:24 07/01/17 00:06 Labs: Laboratory Results - last 24 hr 06/30/17 06/30/17 06/30/17 00:08 21:11 23:24 WBC 12.8 H D RBC 5.35 Hgb 14.8 D Hct 46.0 MCV 86.0 D MCH 27.6 MCHC 32.1 L RDW 15.6 H Plt Count 176 MPV 10.5 Neut % (Auto) 75.4 H Lymph % (Auto) 20.0 [place] % (Auto) 3.9 Eos % (Auto) 0.1 Baso % (Auto) 0.6 Neut # 9.7 H Lymph # 2.6 [place] # 0.5 Eos # 0.0 Baso # 0.1 pCO2 35 pO2 88 HCO3 25.5 ABG pH 7.45 ABG Total CO2 25.4 ABG O2 Saturation 100.7 H ABG Base Excess 0.7 Ruiz Test Yes ABG Potassium 3.9 A-a O2 Difference 125.0 Sodium 139.0 Chloride 109.0 H Glucose 137 H Lactate 2.7 H Vent Mode 4lnc FiO2 36.0 Crit Value Called To geraldo Epps Crit Value Called By S [place] Crit Value Read Back Y Blood Gas Notified Time 19 POC Glucose (mg/dL) 144 H Arterial Blood Potassium 3.9 - Imaging and Cardiology CT scan - head Status: Image reviewed by me, Report reviewed by me Additional comment: EXAM: CT Head Without Intravenous Contrast FINDINGS: Brain: [id number] atrophy. No intracranial hemorrhage. No mass. Dilated perivascular space vs chronic lacunar infarct about RIGHT basal ganglia. No edema. Ventricles: No hydrocephalus. Bones/joints: No calvarial fracture. Mastoid air cells: No mastoid effusion. IMPRESSION: 1. No intracranial hemorrhage. 2. See facial bone CT report for additional details. 3. Incidental/non-acute findings are described above. CT facial bones Additional comment: EXAM: CT Maxillofacial Without Intravenous Contrast FINDINGS: Bones/joints: Mildly depressed fracture floor of left orbit. Mildly depressed fracture medial wall of left orbit. Nondisplaced, buckled fracture lateral wall of left orbit. Minimally displaced fracture anterior wall of left maxillary sinus. Nondisplaced fracture posteromedial wall of left maxillary sinus. Nondisplaced fracture left zygomatic arch. Minimally displaced fracture left nasal bone, age indeterminate. Degenerative changes of temporomandibular joints. Degenerative changes of cervical spine. Soft tissues: LEFT periorbital/maxillary soft tissue swelling. Orbits: Mild stranding/air within left orbit. Sinuses: Partial opacification of LEFT ethmoid sinus. Mild mucosal thickening of RIGHT ethmoid, LEFT sphenoid sinuses. Air-fluid level/hemorrhage within LEFT maxillary sinus. IMPRESSION: 1. Facial fractures as above. 2. Incidental/non-acute findings are described above. Assessment & Plan - Assessment and Plan (Free Text) Assessment: #. AMS #. Overdose on Elavil #. QTc prlologation #. Multiple Left Orbital Fracture #. Left maxillary wall fracture #. Left Zygomatuc Fracture #. HIV/AIDS Plan: 62 years old male with hx of anxiety and depression, AIDS, HIV neuropathy, frequent falls, he had an unwitnessed fall at his home receiving laceration below the chin and the left eye lid. He was found confused, disoriented to time and place and brought to the ED.vHis Mother thinks that he took an overdose of 5 Elavil tablets.In the ED he was agitated, aggressive and uncooperative Ativan and Haldol before being mildly sedated. #. AMS with toxic Encephalopathy secondary to The Elavil overdose. - Admit to ICU with close observation for Seizure and Cardiac Arrhythmia - Cardiac monitoring - Mechanical ventilation if needed for Airway protection - Continuous Blood Pressures - IV fluids 125mls/hr of D5/0.45NS with Sodium Bicarbonate to a Ph of 7.50 - Supportive measures - Ativan for agitation and Seizure - 1:1 observation because of agitation #. QTc prolongation caused by the Elavil - Cardiac monitoring and Follow up 12 lead EKG - Continue IV Fluids as above - Monitor QTc #. Multiple Left Orbital Fracture #. Left maxillary wall fracture #. Left Zygomatuc Fracture #. Left nasal bone Fracture - Consult Maxillofacial Dr Boswell - Pain management PRN #. HIV/AIDS - Continue HIV meds as soon as pte could take oral medication #. DVT prophylaxis with SCD #. Code Status: Full - Date & Time Date: 07/01/17 Time: 01:30
[2017-07-01] MEDS ORDERED: Midazolam 2 MG/2 ML VIAL IV ONE (01:51)
[2017-07-01 02:28] LABS: ALBUMIN 4.4 g/dL (3.5-5.0); ALT/SGPT 60 U/L (21-72); AST/SGOT 58 U/L (17-59); BLOOD UREA NITROGEN 18 mg/dl (9-20); CALCIUM 9.8 mg/dL (8.4-10.2); GFR AFRICAN-AMERICAN > 60; GFR NON-AFRICAN AMERICAN > 60
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
[2017-07-01] MEDS ORDERED: Sodium Chloride 0.9% 1,000 ML IV SCH (02:45)
[2017-07-01 02:49] LABS: ACETAMINOPHEN < 10.0 ug/ml (10.0-30.0); SALICYLATE < 1.0 mg/dL 1
[2017-07-01] MEDS ORDERED: Clindamycin 600 MG in Sodium Chloride 0.9% 100 ML IVPB ONE (03:07)
[2017-07-01] MEDS ORDERED: Sodium Bicarbonate 7.5% (0.9 MEQ/ML) 50ML INJ IV ONE ×3 (03:18→03:49)
[2017-07-01 03:29] LABS: T3 UPTAKE 29.4 % (23.0-41.0); T4 11.1 ug/dl (5.5-11.0)
[2017-07-01 03:48] LABS: PARTIAL THROMBOPLASTIN TIME 27.9 Seconds (25.6-37.1); PROTHROMBIN TIME 11.2 Seconds (9.8-13.1)
[2017-07-01] MEDS ORDERED: Sodium Bicarbonate 8.4% 150 MEQ in Dextrose 5%/0.45% NS 1,000 ML IV SCH (04:00)
[2017-07-01] MEDS ORDERED: Dextrose 5%/0.9% NS 1,000 ML IV SCH (05:00)
[2017-07-01 06:44] LABS: BASO # 0.1 K/uL (0.0-0.2); BASO % 0.5 % (0.0-2.0); EOS # 0.1 K/uL (0.0-0.7); EOS % 0.5 % (0.0-4.0); HEMOGLOBIN 12.8 g/dL (12.0-18.0); LYMPH # 3.6 K/uL (1.0-4.3); LYMPH % 37.7 % (20.0-40.0); MEAN CELL VOLUME 84.2 fl (80.0-94.0); MEAN CORPUSCULAR HEMOGLOBIN 28.3 pg (27.0-31.0); MEAN CORPUSCULAR HGB CONC 33.6 g/dL (33.0-37.0); MEAN PLATELET VOLUME 10.1 fl (7.2-11.7); MONO # 0.7 K/uL (0.0-0.8); MONO % 7.1 % (0.0-10.0); NEUT # 5.2 K/uL (1.8-7.0); NEUT % 54.2 % (50.0-75.0); NRBC % 0.1 % (0.0-0.0); RBC 4.52 Mil/uL (4.40-5.90); RED CELL DISTRIBUTION WIDTH 14.9 % (11.5-14.5); WHITE BLOOD COUNT 9.6 K/uL (4.8-10.8)
[2017-07-01] MEDS ORDERED: Pneumococcal 23-Valent Vaccine IM ONE (06:46)
[2017-07-01] MEDS ORDERED: Influenza Vaccine 18yr & older 0.5 ML/45 MCG SYR IM ONE (06:49)
[2017-07-01 08:50] LABS: ABG ALLEN TEST YES; ARTERIAL BLOOD GAS HCO3 30.5 mmol/L (21-28); ARTERIAL BLOOD GAS HEMOGLOBIN 13.6 g/dL (11.7-17.4); ARTERIAL BLOOD GAS O2 CAPACITY 18.4 mL/dL (16-24); ARTERIAL BLOOD GAS O2 SAT 97.8 % (95-98); ARTERIAL BLOOD GAS PCO2 41 mm/Hg (35-45); ARTERIAL BLOOD GAS PH 7.49 (7.35-7.45); ARTERIAL BLOOD GAS PO2 72 mm/Hg (80-100); ARTERIAL BLOOD GAS TCO2 32.5 mmol/L (22-28)
--- NOTE | 2017-07-01 09:13 | CT ---
PROCEDURE: CT HEAD WITHOUT CONTRAST. HISTORY: head injry COMPARISON: CT head 09/18/2016 TECHNIQUE: Axial computed tomography images were obtained through the head/brain without intravenous contrast. Radiation dose: Total exam DLP = 1829 mGy-cm. This CT exam was performed using one or more of the following dose reduction techniques: Automated exposure control, adjustment of the mA and/or kV according to patient size, and/or use of iterative reconstruction technique. FINDINGS: HEMORRHAGE: No intracranial hemorrhage. BRAIN: No mass effect or edema. Mild diffuse cerebral atrophy is noted as well as small vessel changes. There is also a focal area of decreased density seen in the right basal ganglia region consistent with lacunar infarct or perivascular space. VENTRICLES: Unremarkable. No hydrocephalus. CALVARIUM: There is evidence of left anterior maxilla fracture as well as probable lamina papyracea fracture and orbital floor fracture. Please see CT scan facial bone report of same day. No skull fracture seen. PARANASAL SINUSES: Please see CT scan report of facial bones. There is a large air-fluid level seen in the left maxillary sinus as well as ethmoid air cell opacification on the left. MASTOID AIR CELLS: Unremarkable as visualized. No inflammatory changes. OTHER FINDINGS: None. IMPRESSION: No evidence of intracranial hemorrhage. Left anterior maxilla and orbital floor fracture. This agrees with preliminary report provided by the on-call radiologist.
--- NOTE | 2017-07-01 09:25 | RAD ---
HISTORY: medical eval COMPARISON: 09/22/2015 0 FINDINGS: LUNGS: Mild interstitial changes are appreciated. There is a small amount of patchy density seen at the left lung base, probably unchanged. No new focal infiltrate is seen. PLEURA: No significant pleural effusion identified, no pneumothorax apparent. CARDIOVASCULAR: No CHF. Heart is unchanged. OSSEOUS STRUCTURES: No significant abnormalities. VISUALIZED UPPER ABDOMEN: Normal. OTHER FINDINGS: None. IMPRESSION: No new focal infiltrate. Mild interstitial change with some small amount of persistent patchy alveolar density at the left lung base which may represent some mild scarring. PA and lateral view of the chest may prove helpful for further evaluation.
[2017-07-01] MEDS ORDERED: Lidocaine/Epi 1% 1:100000 20 ML IJ ONE (09:50)
[2017-07-01] MEDS ORDERED: Lidocaine 2% w Epi 1:100,000 Inj IJ ONE (10:00)
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
--- NOTE | 2017-07-01 11:57 | CARD ---
APPROVED REPORT EKG Measurement Heart [id number] <Conclusion> Normal sinus rhythm Right bundle branch block Abnormal ECG
--- NOTE | 2017-07-01 11:57 | CARD ---
APPROVED REPORT EKG Measurement Heart [id number] <Conclusion> Normal sinus rhythm Right bundle branch block Cannot rule out Inferior infarct, age undetermined Abnormal ECG
--- NOTE | 2017-07-01 11:59 | CARD ---
APPROVED REPORT EKG Measurement Heart [id number] <Conclusion> Sinus rhythm with fusion complexes Right bundle branch block Abnormal ECG
[2017-07-01] MEDS: Oxycodone/Acetaminophen 5/325 mg Tab PO PRN (12:15)
[2017-07-01] MEDS: Bacitracin 500 Units/gm Oint Foilpak UD TOP SCH ×2 (13:00→16:24)
--- NOTE | 2017-07-01 14:38 | CP.PCM.CON ---
History of Present Illness - History of Present Illness History of Present Illness: 62 yo male with HIV/ AIDS admitted with AMS - s/p fall at home extensive hx of drug abuse with multiple admissions for falls 62 yo ,m, presents to ED with AMS and history is taken by his mother who states that he fell last night about 7:30 pm. She did not saw him when he fell but states that she went down stairs at home to first floor and saw him watching TV and she noticed that he had a cut in his chin and left eye and also he was speaking nonsense things, but not slurred speech. She states that he received a bottel of medication yesteday 5 pm Elavil and she noted 5 tabs missing from the RX bottle, PMHx: HIV, HTN, Depression, Anxiety, Hep C PMhx/o Depression, Anxiety, HIV ( CD4 326,viral load undetect 01/2017), Hep C Allergies:Penicillin, Iodine, Sulfa Meds: Tivicay 50 mg daily, Norvir 100 mg daily, Prezista 800 mg daily, Edurant 25 mg daily, Percocet 5/325 1 tb bid, Gabapentin 800 mg BID PFhx: noncontributory PSurghx: tonsillectomy 1978, b/l cataracts 2000 PShx: neg ETOH, rect drugs. Smoker occs Code status: full code Review of Systems - Review of Systems Systems not reviewed;Unavailable: Altered Mental Status - Constitutional Constitutional: As Per HPI - EENT Eyes: absent: As Per HPI, Blind Spots, Blurred Vision, Change in Vision, Decreased Night Vision, Diplopia, Discharge, Dry Eye, Exophthalmos, Floaters, Irritation, Itchy Eyes, Loss of Peripheral Vision, Pain, Photophobia, Requires Corrective Lenses, Sees Flashes, Spots in Vision, Tunnel Vision, Other Visual Disturbances, Loss of Vision, Other Ears: absent: As Per HPI, Decreased Hearing, Ear Discharge, Ear Pain, Tinnitus, Abnormal Hearing, Disequilibrium, Dizziness, Other Nose/Mouth/Throat: absent: As Per HPI, Epistaxis, Nasal Congestion, Nasal Discharge, Nasal Obstruction, Nasal Trauma, Nose Pain, Post Nasal Drip, Sinus Pain, Sinus Pressure, Bleeding Gums, Change in Voice, Dental Pain, Dry Mouth, Dysphagia, Halitosis, Hoarsness, Lip Swelling, Mouth Lesions, Mouth Pain, Odynophagia, Sore Throat, Throat Swelling, Tongue Swelling, Facial Pain, Neck Pain, Neck Mass, Other - Cardiovascular Cardiovascular: absent: As Per HPI, Acrocyanosis, Chest Pain, Chest Pain at Rest , Chest Pain with Activity, Claudication, Diaphoresis, Dyspnea, Dyspnea on Exertion, Edema, Irregular Heart Rhythm, Pain Radiating to Arm/Neck/Jaw, Leg Edema, Leg Ulcers, Lightheadedness, Orthopnea, Palpitations, Paroxysmal Nocturnal Dyspnea, Pedal Edema, Radiating Pain, Rapid Heart Rate, Slow Heart Rate, Syncope, Other - Respiratory Respiratory: absent: As Per HPI, Cough, Dyspnea, Hemoptysis, Dyspnea on Exertion , Wheezing, Snoring, Stridor, Pain on Inspiration, Chest Congestion, Excessive Mucous Production, Change in Mucous Color, Pain with Coughing, Other - Gastrointestinal Gastrointestinal: absent: As Per HPI, Abdominal Pain, Belching, Bloating, Change in Bowel Habits, Change in Stool Character, Coffee Ground Emesis, Constipation, Cramping, Diarrhea, Dyspepsia, Dysphagia, Early Satiety, Excessive Flatus, Fecal Incontinence, Heartburn, Hematemesis, Hematochezia, Loose Stools, Melena, Nausea, Odynophagia, Temesmus, Vomiting, Other - Genitourinary Genitourinary: absent: As Per HPI, Change in Urinary Stream, Difficulty Urinating, Dysuria, Flank Pain, Hematuria, Pyuria, Nocturia, Urinary Incontinence, Urinary Frequency, Urinary Hesitance, Urinary Urgency, Voiding Freq/Small Amts, Freq UTI, Hx Renal/Bladder Calculi, Hx /Renal Surgery, Bladder Distension, Other - Musculoskeletal Musculoskeletal: absent: As Per HPI, Abnormal Gait, Arthralgias, Atrophy, Back Pain, Deformity, Joint Swelling, Limited Range of Motion, Loss of Height, Muscle Cramps, Muscle Weakness, Myalgias, Neck Pain, Numbness, Radiating Pain into Limb, Stiffness, Tingling, Other - Integumentary Integumentary: absent: As Per HPI, Acne, Alopecia, Bleeding Lesions, Change in Hair, Change in Nails, Change in Pigmentation, Changing Lesions, Dry Skin, Erythema, Furuncle, Hirsutism, Lesions, New Lesions, Non-Healing Lesions, Photosensitivity, Pruritus, Rash, Skin Pain, Skin Ulcer, Sores, Striae, Swelling , Unusual Bruising, Wounds, Jaundice, Other - Neurological Neurological: absent: As Per HPI, Abnormal Gait, Abnormal Hearing, Abnormal Movements, Abnormal Speech, Behavioral Changes, Burning Sensations, Confusion, Convulsions, Disequilibrium, Dizziness, Numbness, Focal Weakness, Frequent Falls , Headaches, Lack of Coordination, Loss of Vision, Memory Loss, Paresthesias, Radicular Pain, Restless Legs, Sensory Deficit, Syncope, Tingling, Tremor, Vertigo, Weakness, Other Visual Disturbances, Other - Psychiatric Psychiatric: absent: As Per HPI, Abnormal Sleep Pattern, Anhedonia, Anxiety, Auditory Hallucinations, Behavioral Changes, Change in Appetite, Change in Libido, Confusion, Depression, Difficulty Concentrating, Hallucinations, Homicidal Ideation, Hopelessness, Irritability, Memory Loss, Mood Swings, Panic Attacks, Paranoia, Suicidal Ideation, Visual Hallucinations, Tactile Hallucinations, Other - Endocrine Endocrine: absent: As Per HPI, Change in Body Appearance, Change in Libido, Cold Intolorance, Deepening of Voice, Excessive Sweating, Fatigue, Flushing, Heat Intolorance, Increase in Ring/Shoe/Hat Size, Palpitations, Polydipsia, Polyphagia, Polyuria, Other - Hematologic/Lymphatic Hematologic: absent: As Per HPI, Easy Bleeding, Easy Bruising, Lymphadenopathy, Other Past Patient History - Infectious Disease Hx of Infectious Diseases: None - Past Medical History & Family History Past Medical History?: Yes - Past Social History Smoking Status: Smoker Currrent Status Unknown - CARDIAC Hx Cardiac Disorders: Yes - PULMONARY Hx Respiratory Disorders: Yes - NEUROLOGICAL Hx Neurological Disorder: No - HEENT Hx HEENT Problems: Yes - RENAL Hx Chronic Kidney Disease: No - ENDOCRINE/METABOLIC Hx Endocrine Disorders: No - HEMATOLOGICAL/ONCOLOGICAL Hx Blood Disorders: Yes - INTEGUMENTARY Hx Dermatological Problems: Yes - MUSCULOSKELETAL/RHEUMATOLOGICAL Hx Musculoskeletal Disorders: Yes - GASTROINTESTINAL Hx Gastrointestinal Disorders: No - GENITOURINARY/GYNECOLOGICAL Hx Genitourinary Disorders: No - PSYCHIATRIC Hx Psychophysiologic Disorder: Yes - SURGICAL HISTORY Hx Surgeries: Yes Hx Tonsillectomy: Yes - ANESTHESIA Hx Anesthesia: Yes Hx Anesthesia Reactions: No Hx Malignant Hyperthermia: No Meds Allergies/Adverse Reactions: Allergies Allergy/AdvReac Type Severity Reaction Status Date / Time Penicillins Allergy REDNESS Verified 09/19/16 02:44 sulfamethoxazole Allergy FATIGUE Verified 09/19/16 02:44 [From Bactrim] trimethoprim [From Bactrim] Allergy FATIGUE Verified 09/19/16 02:44 - Medications Medications: Current Medications Bacitracin (Bacitracin) 1 ea TOP TID [facility] Clonazepam (Klonopin) 2 mg PO DAILY [facility] Last Admin: 07/01/17 10:49 Dose: 2 mg Dextrose/Sodium Chloride (Dextrose 5%/0.9% Ns 1000 Ml) 1,000 mls @ 112 mls/hr IV .Q8H56M JOEL Stop: 07/02/17 04:55 Lorazepam (Ativan) 1 mg IVP Q4 PRN PRN Reason: Agitation Last Admin: 07/01/17 11:55 Dose: 1 mg Lorazepam (Ativan) 2 mg IVP Q4H PRN PRN Reason: Seizure activity Oxycodone/Acetaminophen (Percocet 5/325 Mg Tab) 1 tab PO Q6 PRN PRN Reason: Pain, moderate (4-7) Stop: 07/04/17 11:56 Last Admin: 07/01/17 12:15 Dose: 1 tab Physical Exam - Constitutional Appears: Confused, Chronically Ill - Head Exam Head Exam: NORMOCEPHALIC - Eye Exam Eye Exam: absent: Scleral icterus - ENT Exam ENT Exam: Mucous Membranes Dry, Normal External Ear Exam - Neck Exam Neck exam: Negative for: Lymphadenopathy - Respiratory Exam Respiratory Exam: Decreased Breath Sounds - Cardiovascular Exam Cardiovascular Exam: REGULAR RHYTHM - GI/Abdominal Exam GI & Abdominal Exam: Diminished Bowel Sounds, Soft. absent: Tenderness - Rectal Exam Rectal Exam: Deferred - Exam Exam: NORMAL INSPECTION - Extremities Exam Extremities exam: Positive for: pedal pulses present. Negative for: calf tenderness, pedal edema, tenderness - Back Exam Back exam: absent: CVA tenderness (L) - Neurological Exam Neurological exam: Alert, Altered, CN II-XII Intact - Psychiatric Exam Psychiatric exam: Depressed - Skin Skin Exam: Dry Results - Vital Signs Recent Vital Signs: Last Vital Signs Temp 98.1 F 07/01/17 12:00 Pulse 91 H 07/01/17 12:00 Resp 14 07/01/17 12:00 BP 149/93 H 07/01/17 12:00 Pulse Ox 97 07/01/17 12:00 - Labs Result Diagrams: 07/01/17 06:35 07/01/17 00:06 Labs: Laboratory Results - last 24 hr 06/30/17 06/30/17 06/30/17 00:08 21:11 23:24 WBC 12.8 H D RBC 5.35 Hgb 14.8 D Hct 46.0 MCV 86.0 D MCH 27.6 MCHC 32.1 L RDW 15.6 H Plt Count 176 MPV 10.5 Neut % (Auto) 75.4 H Lymph % (Auto) 20.0 Warren % (Auto) 3.9 Eos % (Auto) 0.1 Baso % (Auto) 0.6 Neut # 9.7 H Lymph # 2.6 Warren # 0.5 Eos # 0.0 Baso # 0.1 ESR PT INR APTT pCO2 35 pO2 88 HCO3 25.5 ABG pH 7.45 ABG Total CO2 25.4 ABG O2 Saturation 100.7 H ABG O2 Content ABG Base Excess 0.7 ABG Hemoglobin ABG Carboxyhemoglobin POC ABG HHb (Measured) ABG Methemoglobin ABG O2 Capacity Ruiz Test Yes ABG Potassium 3.9 A-a O2 Difference 125.0 Hgb O2 Saturation Sodium 139.0 Chloride 109.0 H Glucose 137 H Lactate 2.7 H Vent Mode 4lnc FiO2 36.0 Crit Value Called To geraldo Epps Crit Value Called By Deana husser Crit Value Read Back Y Blood Gas Notified Time 19 Potassium Carbon Dioxide Anion Gap BUN Creatinine Est GFR ( Amer) Est GFR (Non-Af Amer) POC Glucose (mg/dL) 144 H Random Glucose Lactic Acid Calcium Total Bilirubin AST ALT Alkaline Phosphatase Troponin I Total Protein Albumin Globulin Albumin/Globulin Ratio Thyroxine (T4) T3 Uptake TSH 3rd Generation Arterial Blood Potassium 3.9 Salicylates Acetaminophen 07/01/17 07/01/17 07/01/17 00:02 00:06 01:12 WBC RBC Hgb Hct MCV MCH MCHC RDW Plt Count MPV Neut % (Auto) Lymph % (Auto) Warren % (Auto) Eos % (Auto) Baso % (Auto) Neut # Lymph # Warren # Eos # Baso # ESR PT 11.2 INR 1.0 APTT 27.9 pCO2 pO2 HCO3 ABG pH ABG Total CO2 ABG O2 Saturation ABG O2 Content ABG Base Excess ABG Hemoglobin ABG Carboxyhemoglobin POC ABG HHb (Measured) ABG Methemoglobin ABG O2 Capacity Ruiz Test ABG Potassium A-a O2 Difference Hgb O2 Saturation Sodium 145 Chloride 107 Glucose Lactate Vent Mode FiO2 Crit Value Called To Crit Value Called By Crit Value Read Back Blood Gas Notified Time Potassium 3.8 Carbon Dioxide 23 Anion Gap 19 BUN 18 Creatinine 1.2 Est GFR ( Amer) > 60 Est GFR (Non-Af Amer) > 60 POC Glucose (mg/dL) Random Glucose 120 H Lactic Acid Calcium 9.8 Total Bilirubin 0.8 AST 58 ALT 60 Alkaline Phosphatase 102 Troponin I < 0.0120 Total Protein 8.6 H Albumin 4.4 Globulin 4.2 H Albumin/Globulin Ratio 1.0 Thyroxine (T4) 11.1 H T3 Uptake 29.4 TSH 3rd Generation 2.33 Arterial Blood Potassium Salicylates < 1.0 Acetaminophen < 10.0 L 07/01/17 07/01/17 07/01/17 06:35 08:40 09:15 WBC 9.6 RBC 4.52 Hgb 12.8 D Hct 38.1 MCV 84.2 MCH 28.3 MCHC 33.6 RDW 14.9 H Plt Count 178 MPV 10.1 Neut % (Auto) 54.2 Lymph % (Auto) 37.7 Warren % (Auto) 7.1 Eos % (Auto) 0.5 Baso % (Auto) 0.5 Neut # 5.2 Lymph # 3.6 Warren # 0.7 Eos # 0.1 Baso # 0.1 ESR 28 H PT INR APTT pCO2 41 pO2 72 L HCO3 30.5 H ABG pH 7.49 H ABG Total CO2 32.5 H ABG O2 Saturation 97.8 ABG O2 Content 18.0 ABG Base Excess 7.2 H ABG Hemoglobin 13.6 ABG Carboxyhemoglobin 2.4 H POC ABG HHb (Measured) 2.1 ABG Methemoglobin 1.6 ABG O2 Capacity 18.4 Ruiz Test Yes ABG Potassium A-a O2 Difference 26.0 Hgb O2 Saturation 93.9 L Sodium Chloride Glucose Lactate Vent Mode FiO2 21.0 Crit Value Called To Crit Value Called By Crit Value Read Back Blood Gas Notified Time Potassium Carbon Dioxide Anion Gap BUN Creatinine Est GFR ( Amer) Est GFR (Non-Af Amer) POC Glucose (mg/dL) Random Glucose Lactic Acid 1.6 Calcium Total Bilirubin AST ALT Alkaline Phosphatase Troponin I Total Protein Albumin Globulin Albumin/Globulin Ratio Thyroxine (T4) T3 Uptake TSH 3rd Generation Arterial Blood Potassium Salicylates Acetaminophen Assessment & Plan (1) Altered mental status Status: Acute Priority: High (2) Periorbital hematoma of left eye Status: Acute (3) HIV (human immunodeficiency virus infection) Status: Chronic Priority: High (4) Substance abuse Status: Chronic Priority: High
--- NOTE | 2017-07-01 16:38 | CP.PCM.PCO ---
Addendum Addendum: 07/01/17 16:36 Nurse called that they were unable to regain IV access on patient after multiple tries. IV fell off around Noon. Patient tolerating PO. General status slightly improved, stable. Will change Ativan from IV to IM for agitation for now.
--- NOTE | 2017-07-01 17:02 | CP.PCM.CON ---
History of Present Illness - History of Present Illness History of Present Illness: Mr. 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 He had a fall with facial fractures, loss of consciousness, confusion, agitation, combativeness afterward , requiring sedation. He is now in the ICU. His mother is at bedside and assists with the history, since the patient is encephalopathic and seems to be confabulating often. Review of Systems - Review of Systems Systems not reviewed;Unavailable: Altered Mental Status Past Patient History - Infectious Disease Hx of Infectious Diseases: None - Past Medical History & Family History Past Medical History?: Yes - Past Social History Smoking Status: Smoker Currrent Status Unknown - CARDIAC Hx Cardiac Disorders: Yes - PULMONARY Hx Respiratory Disorders: Yes - NEUROLOGICAL Hx Neurological Disorder: No - HEENT Hx HEENT Problems: Yes - RENAL Hx Chronic Kidney Disease: No - ENDOCRINE/METABOLIC Hx Endocrine Disorders: No - HEMATOLOGICAL/ONCOLOGICAL Hx Blood Disorders: Yes - INTEGUMENTARY Hx Dermatological Problems: Yes - MUSCULOSKELETAL/RHEUMATOLOGICAL Hx Musculoskeletal Disorders: Yes - GASTROINTESTINAL Hx Gastrointestinal Disorders: No - GENITOURINARY/GYNECOLOGICAL Hx Genitourinary Disorders: No - PSYCHIATRIC Hx Psychophysiologic Disorder: Yes - SURGICAL HISTORY Hx Surgeries: Yes Hx Tonsillectomy: Yes - ANESTHESIA Hx Anesthesia: Yes Hx Anesthesia Reactions: No Hx Malignant Hyperthermia: No Meds Allergies/Adverse Reactions: Allergies Allergy/AdvReac Type Severity Reaction Status Date / Time Penicillins Allergy REDNESS Verified 09/19/16 02:44 sulfamethoxazole Allergy FATIGUE Verified 09/19/16 02:44 [From Bactrim] trimethoprim [From Bactrim] Allergy FATIGUE Verified 09/19/16 02:44 - Medications Medications: Current Medications Bacitracin (Bacitracin) 1 ea TOP TID [facility] Last Admin: 07/01/17 16:24 Dose: 1 ea Clonazepam (Klonopin) 2 mg PO DAILY [facility] Last Admin: 07/01/17 10:49 Dose: 2 mg Dextrose/Sodium Chloride (Dextrose 5%/0.9% Ns 1000 Ml) 1,000 mls @ 112 mls/hr IV .Q8H56M [facility] Stop: 07/02/17 04:55 Last Admin: 07/01/17 16:23 Dose: Not Given Lorazepam (Ativan) 1 mg IVP Q4 PRN PRN Reason: Agitation Last Admin: 07/01/17 11:55 Dose: 1 mg Lorazepam (Ativan) 2 mg IVP Q4H PRN PRN Reason: Seizure activity Lorazepam (Ativan) 1 mg IM Q4H PRN PRN Reason: Agitation Oxycodone/Acetaminophen (Percocet 5/325 Mg Tab) 1 tab PO Q6 PRN PRN Reason: Pain, moderate (4-7) Stop: 07/04/17 11:56 Last Admin: 07/01/17 12:15 Dose: 1 tab Physical Exam - Head Exam Additional comments: Left perio-orbital echymosis, bruising, hematoma with ptosis. Multiple injuries to the head. - Eye Exam Eye Exam: Conjunctival injection Pupil Exam: PERRL - ENT Exam ENT Exam: Mucous Membranes Moist, Normal Exam - Neck Exam Neck exam: Positive for: Full Rom - Cardiovascular Exam Cardiovascular Exam: REGULAR RHYTHM, +S1, +S2 - GI/Abdominal Exam GI & Abdominal Exam: Normal Bowel Sounds, Soft. absent: Tenderness - Rectal Exam Rectal Exam: Deferred - Extremities Exam Extremities exam: Positive for: normal inspection - Back Exam Back exam: NORMAL INSPECTION - Neurological Exam Neurological exam: Abnormal Gait, Alert, CN II-XII Intact, Oriented x3 Additional comments: Decreased sensation in hands and feet to LT and vibration. Strength is symmetrical. Reflexes are diminished. Plantar responses are muted. - Psychiatric Exam Psychiatric exam: Agitated, Anxious - Skin Skin Exam: Dry, Intact, Normal Color, Warm Results - Vital Signs Recent Vital Signs: Last Vital Signs Temp 97.6 F 07/01/17 16:44 Pulse 84 07/01/17 16:44 Resp 10 L 07/01/17 16:44 BP 140/82 07/01/17 16:44 Pulse Ox 100 07/01/17 16:44 - Labs Result Diagrams: 07/01/17 06:35 07/01/17 00:06 Labs: Laboratory Results - last 24 hr 06/30/17 06/30/17 06/30/17 00:08 21:11 23:24 WBC 12.8 H D RBC 5.35 Hgb 14.8 D Hct 46.0 MCV 86.0 D MCH 27.6 MCHC 32.1 L RDW 15.6 H Plt Count 176 MPV 10.5 Neut % (Auto) 75.4 H Lymph % (Auto) 20.0 [place] % (Auto) 3.9 Eos % (Auto) 0.1 Baso % (Auto) 0.6 Neut # 9.7 H Lymph # 2.6 [place] # 0.5 Eos # 0.0 Baso # 0.1 ESR PT INR APTT pCO2 35 pO2 88 HCO3 25.5 ABG pH 7.45 ABG Total CO2 25.4 ABG O2 Saturation 100.7 H ABG O2 Content ABG Base Excess 0.7 ABG Hemoglobin ABG Carboxyhemoglobin POC ABG HHb (Measured) ABG Methemoglobin ABG O2 Capacity Ruiz Test Yes ABG Potassium 3.9 A-a O2 Difference 125.0 Hgb O2 Saturation Sodium 139.0 Chloride 109.0 H Glucose 137 H Lactate 2.7 H Vent Mode 4lnc FiO2 36.0 Crit Value Called To geraldo Epps Crit Value Called By Deana goel Crit Value Read Back Y Blood Gas Notified Time 19 Potassium Carbon Dioxide Anion Gap BUN Creatinine Est GFR ( Amer) Est GFR (Non-Af Amer) POC Glucose (mg/dL) 144 H Random Glucose Lactic Acid Calcium Total Bilirubin AST ALT Alkaline Phosphatase Troponin I Total Protein Albumin Globulin Albumin/Globulin Ratio Thyroxine (T4) T3 Uptake TSH 3rd Generation Arterial Blood Potassium 3.9 Salicylates Acetaminophen 07/01/17 07/01/17 07/01/17 00:02 00:06 01:12 WBC RBC Hgb Hct MCV MCH MCHC RDW Plt Count MPV Neut % (Auto) Lymph % (Auto) [place] % (Auto) Eos % (Auto) Baso % (Auto) Neut # Lymph # [place] # Eos # Baso # ESR PT 11.2 INR 1.0 APTT 27.9 pCO2 pO2 HCO3 ABG pH ABG Total CO2 ABG O2 Saturation ABG O2 Content ABG Base Excess ABG Hemoglobin ABG Carboxyhemoglobin POC ABG HHb (Measured) ABG Methemoglobin ABG O2 Capacity Ruiz Test ABG Potassium A-a O2 Difference Hgb O2 Saturation Sodium 145 Chloride 107 Glucose Lactate Vent Mode FiO2 Crit Value Called To Crit Value Called By Crit Value Read Back Blood Gas Notified Time Potassium 3.8 Carbon Dioxide 23 Anion Gap 19 BUN 18 Creatinine 1.2 Est GFR ( Amer) > 60 Est GFR (Non-Af Amer) > 60 POC Glucose (mg/dL) Random Glucose 120 H Lactic Acid Calcium 9.8 Total Bilirubin 0.8 AST 58 ALT 60 Alkaline Phosphatase 102 Troponin I < 0.0120 Total Protein 8.6 H Albumin 4.4 Globulin 4.2 H Albumin/Globulin Ratio 1.0 Thyroxine (T4) 11.1 H T3 Uptake 29.4 TSH 3rd Generation 2.33 Arterial Blood Potassium Salicylates < 1.0 Acetaminophen < 10.0 L 07/01/17 07/01/17 07/01/17 06:35 08:40 09:15 WBC 9.6 RBC 4.52 Hgb 12.8 D Hct 38.1 MCV 84.2 MCH 28.3 MCHC 33.6 RDW 14.9 H Plt Count 178 MPV 10.1 Neut % (Auto) 54.2 Lymph % (Auto) 37.7 [place] % (Auto) 7.1 Eos % (Auto) 0.5 Baso % (Auto) 0.5 Neut # 5.2 Lymph # 3.6 [place] # 0.7 Eos # 0.1 Baso # 0.1 ESR 28 H PT INR APTT pCO2 41 pO2 72 L HCO3 30.5 H ABG pH 7.49 H ABG Total CO2 32.5 H ABG O2 Saturation 97.8 ABG O2 Content 18.0 ABG Base Excess 7.2 H ABG Hemoglobin 13.6 ABG Carboxyhemoglobin 2.4 H POC ABG HHb (Measured) 2.1 ABG Methemoglobin 1.6 ABG O2 Capacity 18.4 Ruiz Test Yes ABG Potassium A-a O2 Difference 26.0 Hgb O2 Saturation 93.9 L Sodium Chloride Glucose Lactate Vent Mode FiO2 21.0 Crit Value Called To Crit Value Called By Crit Value Read Back Blood Gas Notified Time Potassium Carbon Dioxide Anion Gap BUN Creatinine Est GFR ( Amer) Est GFR (Non-Af Amer) POC Glucose (mg/dL) Random Glucose Lactic Acid 1.6 Calcium Total Bilirubin AST ALT Alkaline Phosphatase Troponin I Total Protein Albumin Globulin Albumin/Globulin Ratio Thyroxine (T4) T3 Uptake TSH 3rd Generation Arterial Blood Potassium Salicylates Acetaminophen - Imaging and Cardiology CT scan - head Status: Image reviewed by me, Report reviewed by me (No intracranial hemorrhage/ contusion. 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 Much of this is chronic based on the patient's mother's report. 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 I recommend starting 500 mg BID. Furthermore, an EEG and a follow-up CT head is recommended. Status: Acute Priority: High (2) Neuropathy Assessment and Plan: This can be managed with neurontin and outpatient follow up with his neurologist Dr. Tian. Status: Chronic Priority: Medium
[2017-07-01] MEDS: Divalproex 500 mg DR(BID formulation) PO SCH (18:18)
[2017-07-01 19:47] LABS: BARBITURATES, UR NEGATIVE (NEGATIVE); BENZODIAZEPINES, UR POSITIVE (NEGATIVE); OPIATES, UR NEGATIVE (NEGATIVE); PHENCYCLIDINE, UR NEGATIVE (NEGATIVE)
[2017-07-01 20:04] LABS: GRANULAR CAST 4 /lpf (0-1); SQUAMOUS EPITHIAL 2 /hpf (0-5); URINE AMORPHOUS SEDIMENT MANY /ul (<OCC); URINE BACTERIA RARE (<OCC); URINE BILIRUBIN NEGATIVE (NEGATIVE); URINE BLOOD NEGATIVE (NEGATIVE); URINE CLARITY TURBID (Clear); URINE COLOR AMBER (YELLOW); URINE GLUCOSE (UA) NEG (Normal); URINE LEUKOCYTE ESTERASE NEG Leu/uL (Negative); URINE NITRATE NEGATIVE (NEGATIVE); URINE PROTEIN 100 mg/dL (NEGATIVE)
[2017-07-01 20:12] LABS: URINE CALCIUM OXALATE CRYSTALS OCC /hpf (<OCC)
--- NOTE | 2017-07-02 07:41 | CP.CCUPN ---
CCU Subjective - Physician Review Subjective (Free Text): 07/02/17 The patient was Seen/interviewed and examined by me at the bedside during ICU round, Medical records reviewed and Management issues were discussed and formulated with the house staff. Events reviewed Clinically and hemodynamically stable and the plan is to transfer out of the ICU. No Vasopressors Awake, comfortable, NAD Pt AAO x3. Alert, follows commands, but confused at times. Denies any chest pain, SOB or Palpitations Afebrile, NSR on the monitor CCU Objective - Vital Signs / Intake & Output Vital Signs (Last 4 hours): Vital Signs Temp Pulse Resp BP Pulse Ox 07/02/17 06:00 76 22 110/66 98 07/02/17 04:00 97.5 F L 77 23 124/70 100 Intake and Output (Last 8hrs): Intake & Output 07/01/17 07/02/17 07/02/17 22:59 06:59 14:59 Intake Total 1040 Output Total 200 Balance 840 Intake: IV 560 Oral 480 Output: Urine 200 Urine, Voided 200 Other: # Voids Urine, Voided 1 - Physical Exam Physical Exam Limitations: Positive for: Clinical Condition Head: Positive for: Ecchymosis (Ecchymosis and contusion around his L eye, + Laceeration ). Negative for: Atraumatic (Chin + Laceeration ) Pupils: Positive for: PERRL Extroacular Muscles: Positive for: EOMI Conjunctiva: Positive for: Normal, Injected. Negative for: Icteric Neck: Positive for: Normal Range of Motion, Trachea Midline. Negative for: Meningeal Signs, MIDLINE TENDERNESS, Paraspinal Tenderness, JVD, Lymphadenopathy , Bruit, Other Respiratory/Chest: Positive for: Clear to Auscultation, Good Air Exchange. Negative for: Respiratory Distress, Accessory Muscle Use, Wheezes, Rales, Retracting, Rhonchi Cardiovascular: Positive for: Regular Rate and Rhythm, Normal S1, S2, Peripheal Pulses Present. Negative for: Irregular Rhythm Abdomen: Positive for: Normal Bowel Sounds. Negative for: Tenderness, Distention Neurological: Positive for: GCS=15, CN II-XII Intact, Speech Normal, Motor Func Grossly Intact, Normal Sensory Function Psychiatric: Positive for: Alert, Oriented x 3 - Medications Active Medications: Active Medications Generic Name Dose Route Start Last Admin Trade Name Freq PRN Reason Stop Dose Admin Bacitracin 1 ea 07/01/17 13:00 07/01/17 16:24 Bacitracin TOP 1 ea TID JOEL Administration Clonazepam 2 mg 07/01/17 10:45 07/01/17 10:49 Klonopin PO 2 mg DAILY JOEL Administration Divalproex Sodium 500 mg 07/01/17 17:15 07/01/17 18:18 Depmarai teresa Moon(*Bid*) PO 500 mg BID JOEL Administration Lorazepam 1 mg 07/01/17 04:21 07/01/17 11:55 Ativan IVP 1 mg Q4 PRN Administration Agitation Lorazepam 2 mg 07/01/17 04:22 Ativan IVP Q4H PRN Seizure activity Lorazepam 1 mg 07/01/17 16:35 07/02/17 04:49 Ativan IM 1 mg Q4H PRN Administration Agitation Oxycodone/Acetaminophen 1 tab 07/01/17 11:55 07/01/17 12:15 Percocet 5/325 Mg Tab PO 07/04/17 11:56 1 tab Q6 PRN Administration Pain, moderate (4-7) - Patient Studies Lab Studies: Lab Studies 07/01/17 07/01/17 07/01/17 Range/Units 19:20 19:20 09:15 ESR (0-20) mm/hr pCO2 (35-45) mm/Hg pO2 (80-100) mm/Hg HCO3 (21-28) mmol/L ABG pH (7.35-7.45) ABG Total CO2 (22-28) mmol/L ABG O2 Saturation (95-98) % ABG O2 Content (15-23) ML/dL ABG Base Excess (-2.0-3.0) mmol/L ABG Hemoglobin (11.7-17.4) g/dL ABG Carboxyhemoglobin (0.5-1.5) % POC ABG HHb (Measured) (0.0-5.0) % ABG Methemoglobin (0.0-3.0) % ABG O2 Capacity (16-24) mL/dL Ruiz Test A-a O2 Difference mm/Hg Hgb O2 Saturation (95.0-98.0) % FiO2 % Lactic Acid 1.6 (0.7-2.1) MMOL/L Urine Color Kandy (YELLOW) Urine Clarity Turbid (Clear) Urine pH 7.0 (5.0-8.0) Ur Specific Wolf 1.023 (1.003-1.030) Urine Protein 100 (NEGATIVE) mg/dL Urine Glucose (UA) Neg (Normal) mg/dL Urine Ketones Negative (NEGATIVE) mg/dL Urine Blood Negative (NEGATIVE) Urine Nitrate Negative (NEGATIVE) Urine Bilirubin Negative (NEGATIVE) Urine Urobilinogen 4.0 (0.2-1.0) mg/dL Ur Leukocyte Esterase Neg (Negative) Mikey/uL Urine RBC (Auto) 22 H (0-3) /hpf Urine Microscopic WBC 17 H (0-5) /hpf Ur Squamous Epith Cells 2 (0-5) /hpf Calcium Oxalate Crystal Occ H (<OCC) /hpf Amorphous Sediment Many H (<OCC) /ul Urine Bacteria Rare (<OCC) Hyaline Casts 3-5 H (0-2) /hpf Granular Casts (Auto) 4 (0-1) /lpf Urine Opiates Screen Negative (NEGATIVE) Urine Methadone Screen Negative (NEGATIVE) Ur Barbiturates Screen Negative (NEGATIVE) Ur Phencyclidine Scrn Negative (NEGATIVE) Ur Amphetamines Screen Negative (NEGATIVE) U Benzodiazepines Scrn Positive (NEGATIVE) U Oth Cocaine Metabols Negative (NEGATIVE) U Cannabinoids Screen Negative (NEGATIVE) 07/01/17 07/01/17 Range/Units 08:40 06:35 ESR 28 H (0-20) mm/hr pCO2 41 (35-45) mm/Hg pO2 72 L (80-100) mm/Hg HCO3 30.5 H (21-28) mmol/L ABG pH 7.49 H (7.35-7.45) ABG Total CO2 32.5 H (22-28) mmol/L ABG O2 Saturation 97.8 (95-98) % ABG O2 Content 18.0 (15-23) ML/dL ABG Base Excess 7.2 H (-2.0-3.0) mmol/L ABG Hemoglobin 13.6 (11.7-17.4) g/dL ABG Carboxyhemoglobin 2.4 H (0.5-1.5) % POC ABG HHb (Measured) 2.1 (0.0-5.0) % ABG Methemoglobin 1.6 (0.0-3.0) % ABG O2 Capacity 18.4 (16-24) mL/dL Ruiz Test Yes A-a O2 Difference 26.0 mm/Hg Hgb O2 Saturation 93.9 L (95.0-98.0) % FiO2 21.0 % Lactic Acid (0.7-2.1) MMOL/L Urine Color (YELLOW) Urine Clarity (Clear) Urine pH (5.0-8.0) Ur Specific Wolf (1.003-1.030) Urine Protein (NEGATIVE) mg/dL Urine Glucose (UA) (Normal) mg/dL Urine Ketones (NEGATIVE) mg/dL Urine Blood (NEGATIVE) Urine Nitrate (NEGATIVE) Urine Bilirubin (NEGATIVE) Urine Urobilinogen (0.2-1.0) mg/dL Ur Leukocyte Esterase (Negative) Mikey/uL Urine RBC (Auto) (0-3) /hpf Urine Microscopic WBC (0-5) /hpf Ur Squamous Epith Cells (0-5) /hpf Calcium Oxalate Crystal (<OCC) /hpf Amorphous Sediment (<OCC) /ul Urine Bacteria (<OCC) Hyaline Casts (0-2) /hpf Granular Casts (Auto) (0-1) /lpf Urine Opiates Screen (NEGATIVE) Urine Methadone Screen (NEGATIVE) Ur Barbiturates Screen (NEGATIVE) Ur Phencyclidine Scrn (NEGATIVE) Ur Amphetamines Screen (NEGATIVE) U Benzodiazepines Scrn (NEGATIVE) U Oth Cocaine Metabols (NEGATIVE) U Cannabinoids Screen (NEGATIVE) Laboratory Results - last 24 hr 07/01/17 07/01/17 07/01/17 06:35 08:40 09:15 ESR 28 H pCO2 41 pO2 72 L HCO3 30.5 H ABG pH 7.49 H ABG Total CO2 32.5 H ABG O2 Saturation 97.8 ABG O2 Content 18.0 ABG Base Excess 7.2 H ABG Hemoglobin 13.6 ABG Carboxyhemoglobin 2.4 H POC ABG HHb (Measured) 2.1 ABG Methemoglobin 1.6 ABG O2 Capacity 18.4 Ruiz Test Yes A-a O2 Difference 26.0 Hgb O2 Saturation 93.9 L FiO2 21.0 Lactic Acid 1.6 Urine Color Urine Clarity Urine pH Ur Specific Wolf Urine Protein Urine Glucose (UA) Urine Ketones Urine Blood Urine Nitrate Urine Bilirubin Urine Urobilinogen Ur Leukocyte Esterase Urine RBC (Auto) Urine Microscopic WBC Ur Squamous Epith Cells Calcium Oxalate Crystal Amorphous Sediment Urine Bacteria Hyaline Casts Granular Casts (Auto) Urine Opiates Screen Urine Methadone Screen Ur Barbiturates Screen Ur Phencyclidine Scrn Ur Amphetamines Screen U Benzodiazepines Scrn U Oth Cocaine Metabols U Cannabinoids Screen 07/01/17 07/01/17 19:20 19:20 ESR pCO2 pO2 HCO3 ABG pH ABG Total CO2 ABG O2 Saturation ABG O2 Content ABG Base Excess ABG Hemoglobin ABG Carboxyhemoglobin POC ABG HHb (Measured) ABG Methemoglobin ABG O2 Capacity Ruiz Test A-a O2 Difference Hgb O2 Saturation FiO2 Lactic Acid Urine Color Kandy Urine Clarity Turbid Urine pH 7.0 Ur Specific Wolf 1.023 Urine Protein 100 Urine Glucose (UA) Neg Urine Ketones Negative Urine Blood Negative Urine Nitrate Negative Urine Bilirubin Negative Urine Urobilinogen 4.0 Ur Leukocyte Esterase Neg Urine RBC (Auto) 22 H Urine Microscopic WBC 17 H Ur Squamous Epith Cells 2 Calcium Oxalate Crystal Occ H Amorphous Sediment Many H Urine Bacteria Rare Hyaline Casts 3-5 H Granular Casts (Auto) 4 Urine Opiates Screen Negative Urine Methadone Screen Negative Ur Barbiturates Screen Negative Ur Phencyclidine Scrn Negative Ur Amphetamines Screen Negative U Benzodiazepines Scrn Positive U Oth Cocaine Metabols Negative U Cannabinoids Screen Negative EKG/Cardiology Studies: Cardiology / EKG Studies 07/01/17 07:30 EKG [ELECTROCARDIOGRAM] Routine Comment: Mode Of Transportation: PORTABLE Reason For Exam: Prolonged QTc Does Patient Have a Pacemaker?: No Fingerstick Blood Sugar Results: 144 Review of Systems - Cardiovascular Cardiovascular: absent: Acrocyanosis, Chest Pain, Chest Pain at Rest, Chest Pain with Activity - Respiratory Respiratory: absent: Cough, Dyspnea, Hemoptysis, Dyspnea on Exertion - Gastrointestinal Gastrointestinal: absent: Abdominal Pain, Nausea, Vomiting Critical Care Progress Note - Extremities/Vascular Does the Patient have a Central Venous Catheter?: No Does the Patient have a Sheppard Catheter?: No Does the Patient need a Sheppard Catheter?: No - Nutrition Nutrition: Nutrition Category Date Time Status Heart Healthy Diet [DIET] Diets 07/01/17 Breakfast Active Assessment/Plan (1) QT prolongation Current Visit: Yes Status: Acute Comment: Patient stable, sec to amitriptilyne overdose S/p bicarb EKG reviewed, NSR, normal c QT, no acute changes (2) Altered mental status Current Visit: Yes Status: Acute Priority: High Comment: Likely secondary amitriptyline overdose. Poison control notified Psych consult pending Follow up Amitriptyline level (3) Encephalopathy Current Visit: Yes Status: Acute Priority: High (4) Periorbital hematoma of left eye Current Visit: No Status: Acute Comment: Orbital fracture and zygomatic fracture OMF and Plastic surgery consult pending Neurologically atable Pain controlled with percocet (5) HIV (human immunodeficiency virus infection) Current Visit: No Status: Chronic Priority: High Comment: - CD4 count 257 [06/08]; undetectable VL - c/w with HAART - Repeat VL : not detected - Repeat CD4 - f/u cd4 - 79 (09/23/15) (6) Neuropathy Current Visit: No Status: Chronic Priority: Medium (7) Substance abuse Current Visit: No Status: Chronic Priority: High Comment: -Patient is on Methadone program -Hold methadone now Prophylaxis: -DVT- lovenox 40 mg SC
[2017-07-02] MEDS: Bacitracin 500 Units/gm Oint Foilpak UD TOP SCH ×3 (08:24→16:36)
[2017-07-02] MEDS: Divalproex 500 mg DR(BID formulation) PO SCH ×2 (08:24→16:36)
[2017-07-02] MEDS: Oxycodone/Acetaminophen 5/325 mg Tab PO PRN (08:26)
--- NOTE | 2017-07-02 08:41 | PN ---
CRITICAL CARE PROGRESS NOTE. LOCATION: Patient in ICU, bed 432. TIME SPENT: 35 minutes. SUBJECTIVE: Patient is seen and evaluated at the bedside. Events since admission reviewed. Past medical, surgical, and social history noted. Patient is a 62-year-old male with history of anxiety, depression, chronic obstructive pulmonary disease, hypertension, pneumonia, HIV; admitted after found at home with laceration of the chin and left eyelid. Patient reportedly took overdose of Elavil, about five tablets, as per patient's mother. Poison control contacted, recommended sodium bicarbonate drip. Status post multiple doses of Ativan and Haldol before being mildly sedated. Now, wakeful, remains agitated, and difficult to control. Patient was given clonazepam 2 mg with no benefit. PHYSICAL EXAMINATION: VITAL SIGNS: Temperature 98.3, heart rate 88, blood pressure 127/98, mean arterial pressure 107, respiratory rate 10 to 12, oxygen saturation 97% on room air. Intake and output not documented. Weight 160 pounds. HEAD, EYES, EARS, NOSE, AND THROAT: Laceration involving chin and left eyelid. Ecchymosis surrounding the left orbit. NECK: Trachea central. CHEST: Bilateral breath sounds. Clear to auscultation. HEART: Rhythm regular. S1, S2 normal. No S3, S4 gallop. ABDOMEN: Bowel sounds are present. Soft. Liver and spleen not palpable. Bladder not distended. EXTREMITIES: No clubbing, cyanosis, edema. NEUROLOGIC: Moves all four extremities, very agitated. LABORATORY DATA: WBC 9.6, hemoglobin 12.8, hematocrit 38.1, platelet count 178; PT 11.2, INR 1, PTT 27.9. ABG: pH 7.4, pCO2 of 40, pO2 of 72, saturation 97.8 on room air. SMA-7: Sodium 145, potassium 3.8, chloride 107, CO2 of 23, blood urea nitrogen 18, creatinine 1.2, random glucose 120, calcium 9.8, total bilirubin 0.8. AST 58, ALT 60, alkaline phosphatase 102. Troponin less than 0.012. Total protein 8.6, albumin 4.4. T4 11.1, TSH 2.33. Salicylates less than 7, acetaminophen less than 10. Microbiology: Blood culture, no growth reported. Chest x-ray: Mild interstitial changes, small amount of patchy density at the left lung base. Maxillofacial CT: Mildly depressed fracture of floor, left orbit; mildly depressed fracture, medial wall of left orbit; nondisplaced buckle fracture, lateral wall of left orbit; minimally displaced fracture, anterior wall of the left maxillary sinus; nondisplaced fracture, posteromedial wall of left maxillary sinus; nondisplaced fracture, left zygomatic arch; minimally displaced fracture, left nasal bone; age-indeterminate degenerative changes of the temporomandibular joints; degenerative changes of the cervical spine. Head CT: No evidence of intracranial hemorrhage, left anterior maxilla and orbital floor mild fracture. IMPRESSION: Admitted with altered mental status; agitation; status post fall at home; sustained laceration of the chin and left eyelid plus orbital fracture, left; and nasal septal fracture. History of anxiety and depression, on multiple medications at home, suspected Elavil overdose, on bicarbonate drip, follow EKG and arterial blood gases. Psychiatric evaluation to optimize medication to reduce his anxiety and agitation. Cardiac, no arrhythmias noted. Pulmonary, no acute issues. Gastrointestinal, tolerating p.o. feeds. No acute renal issues. Infection, history of human immunodeficiency virus, on antiretroviral medications. ID consult to optimize the medications for the same. Endocrine, no acute issues. Laceration of the chin and left eyelid, seen by Plastic Surgery, difficult to repair, as the patient is very agitated and not cooperative. Uriel Harley MD
--- NOTE | 2017-07-02 08:54 | CARD ---
APPROVED REPORT EKG Measurement Heart [id number] <Conclusion> Normal sinus rhythm Right bundle branch block Abnormal ECG
--- NOTE | 2017-07-02 09:21 | CP.PCM.PN ---
Subjective - Date & Time of Evaluation Date of Evaluation: 07/02/17 Time of Evaluation: 09:19 - Subjective Subjective: No acute overnight events. Pt seen and examined by bedside, sitter in room. AAO x 3 today, but confused at times. Pt not aware of what happened to him, when asked about what he last remembers pt not able to recall anything. States that he has hx of falls but "I have a strong head". Adamant that he does not have any stairs in his house, and then states that he has stairs but he lives in the first floor and does not use the stairs. Endorses minimal pain in his face around the area of contusion. Denies headache, photophobia, chest pain, dyspnea , n/v/d/c and remains afebrile. Objective - Vital Signs/Intake and Output Vital Signs (last 24 hours): Temp Pulse Resp BP Pulse Ox 97.9 F 97 H 9 L 139/91 H 99 07/02/17 08:00 07/02/17 08:00 07/02/17 08:00 07/02/17 08:00 07/02/17 08:00 - Medications Medications: Current Medications Bacitracin (Bacitracin) 1 ea TOP TID [facility] Last Admin: 07/02/17 08:24 Dose: 1 ea Clonazepam (Klonopin) 2 mg PO DAILY [facility] Last Admin: 07/02/17 08:26 Dose: 2 mg Divalproex Sodium (Depakote Dr(*Bid*)) 500 mg PO BID [facility] Last Admin: 07/02/17 08:24 Dose: 500 mg Lorazepam (Ativan) 1 mg IVP Q4 PRN PRN Reason: Agitation Last Admin: 07/01/17 11:55 Dose: 1 mg Lorazepam (Ativan) 2 mg IVP Q4H PRN PRN Reason: Seizure activity Lorazepam (Ativan) 1 mg IM Q4H PRN PRN Reason: Agitation Last Admin: 07/02/17 04:49 Dose: 1 mg Oxycodone/Acetaminophen (Percocet 5/325 Mg Tab) 1 tab PO Q6 PRN PRN Reason: Pain, moderate (4-7) Stop: 07/04/17 11:56 Last Admin: 07/02/17 08:26 Dose: 1 tab - Labs Labs: 07/01/17 06:35 07/01/17 00:06 PT 11.2 Seconds (9.8-13.1) 07/01/17 01:12 INR 1.0 (0.9-1.2) 07/01/17 01:12 APTT 27.9 Seconds (25.6-37.1) 07/01/17 01:12 - Constitutional Appears: No Acute Distress, Other (has a lac in his chin and contusion around his L eye, with lac ) - Head Exam Head Exam: NORMAL INSPECTION Additional comments: Neg kernig and brudzinski signs - Eye Exam Eye Exam: EOMI, Normal appearance Additional comments: L orbital contusion, L eye hemorrhage - ENT Exam ENT Exam: Mucous Membranes Moist - Neck Exam Neck Exam: Full ROM - Respiratory Exam Respiratory Exam: Clear to Ausculation Bilateral, NORMAL BREATHING PATTERN. absent: Wheezes, Respiratory Distress - Cardiovascular Exam Cardiovascular Exam: REGULAR RHYTHM, +S1, +S2. absent: Murmur - GI/Abdominal Exam GI & Abdominal Exam: Soft, Normal Bowel Sounds. absent: Tenderness - Extremities Exam Extremities Exam: Full ROM, Normal Capillary Refill, Normal Inspection. absent : Calf Tenderness, Pedal Edema - Neurological Exam Neurological Exam: Alert, Awake, Oriented x3 - Psychiatric Exam Psychiatric exam: Anxious Additional comments: Hyperactive and fast speech - Skin Skin Exam: Dry, Intact, Normal Color, Warm Assessment and Plan - Assessment and Plan (Free Text) Assessment: Assessment/Plan: 62 YO Male with PMH of Depression, Anxiety, Hep C, HIV (CD4 326,viral load undetected 01/2017) admitted for AMS, fall, facial injury. HEENT AMS -improving, AAO x 3 today -may be secondary amitriptyline intox, multiple meds regimen, drug -Amitriptyline levels pending -Poison center consulted: suggested bicarb and repeat EKG, ABG -CT Head w/o contrast: no intracranial hemorrhage. no mass, dilated perivascular space vs chronic lacunar infarct about right basal ganglia.no edema -acetaminophen < 10, salicilate levels <1, urine tox + benzo, TSH mildly elevated 11.1, ETOH neg -Neurology consulted; Likely due to a combination of HIV encephalopathy, toxic- metabolic encephalopathy, and injury. Recommend starting 500 mg BID. EEG and a follow-up CT head is recommended. -pending depakote level -Ativan PRN Facial trauma -with orbital fracture and zygomatic fracture -left eye abrasion, chin lac -CT maxillofacial w/o contrast: mild depressed fracture floor of left orbit, medial wall, lateral wall, fracture anterior wall left maxillary sinus and fracture left zygomatic arch -percocet for pain -Plastic surgery consulted, pt seen by resident, attempted to repair lac but patient refused and was agitated. Bacitracin cream to lacerations and will reattempt repair at a later time. -ENT consulted, pending recs -Dental consulted, pending recs Cardiovascular QT prolongation -likely 2/2 amitriptilyne intoxication -s/p bicarb in Ed -repeat ekg 07/01/17; sinus rhythm with RBBB, rate of 88. QTc is 525 -repeat EKG pending -continue to monitor Respiratory Pt breathing comfortably in RA. GI Heart healthy diet Hematuria -hematuria with rbc of 22 in urine -likely 2/2 to fall -UA sig for wbc 17, with haline casts, sedimentation and calcium oxalate crystals -repeat UA Immune/hematology HIV -last CD4 326 01/2017 -viral load undetectable 01/2017 -will have pt bring in his home HIV meds -f/u CD4, viral load Hep C -genotype 2 B -09/22/16 HCV noemí load 2 278 080 -pt during clinic visit refuse to go GI and treatment -f/u HCV viral load Psych Depression/Anxiety/benzo dependence -restarted home med today, paroxetine -continue Klonopin, an attempt was made to taper in outpatient -psych consulted, pending recs Integumentary DVT Prophylaxis -SCD, possible surgery
[2017-07-02 09:33] LABS: HEMOGLOBIN 13.3 g/dL (12.0-18.0); MEAN CELL VOLUME 84.8 fl (80.0-94.0); MEAN CORPUSCULAR HEMOGLOBIN 28.5 pg (27.0-31.0); MEAN CORPUSCULAR HGB CONC 33.6 g/dL (33.0-37.0); RBC 4.67 Mil/uL (4.40-5.90); RED CELL DISTRIBUTION WIDTH 15.4 % (11.5-14.5)
[2017-07-02 09:51] LABS: BLOOD UREA NITROGEN 18 mg/dl (9-20); CALCIUM 9.1 mg/dL (8.4-10.2); GFR AFRICAN-AMERICAN > 60; GFR NON-AFRICAN AMERICAN > 60
--- NOTE | 2017-07-02 10:15 | CP.PCM.PN ---
Subjective - Date & Time of Evaluation Date of Evaluation: 07/02/17 Time of Evaluation: 10:11 - Subjective Subjective: Mr. Silver was seen and examined at the bedside. He is alert, oriented in all spheres. He remains with left eyes hematoma with positive tenderness. He denies any headache, dizziness, lightheadedness, weakness, numbness, nausea, or vomiting. He continuously talk with his sitter with relevant conversation. He further states of not taking any alcohol or illegal drugs for several months. He is able to follow simple commands. He has 1:1 sitter for patient safety.There was no untoward events overnight. Objective - Vital Signs/Intake and Output Vital Signs (last 24 hours): Temp Pulse Resp BP Pulse Ox 97.9 F 97 H 9 L 139/91 H 99 07/02/17 08:00 07/02/17 08:00 07/02/17 08:00 07/02/17 08:00 07/02/17 08:00 - Medications Medications: Current Medications Bacitracin (Bacitracin) 1 ea TOP TID [facility] Last Admin: 07/02/17 08:24 Dose: 1 ea Clonazepam (Klonopin) 2 mg PO DAILY [facility] Last Admin: 07/02/17 08:26 Dose: 2 mg Divalproex Sodium (Depakote Dr(*Bid*)) 500 mg PO BID [facility] Last Admin: 07/02/17 08:24 Dose: 500 mg Lorazepam (Ativan) 1 mg IVP Q4 PRN PRN Reason: Agitation Last Admin: 07/01/17 11:55 Dose: 1 mg Lorazepam (Ativan) 2 mg IVP Q4H PRN PRN Reason: Seizure activity Lorazepam (Ativan) 1 mg IM Q4H PRN PRN Reason: Agitation Last Admin: 07/02/17 04:49 Dose: 1 mg Oxycodone/Acetaminophen (Percocet 5/325 Mg Tab) 1 tab PO Q6 PRN PRN Reason: Pain, moderate (4-7) Stop: 07/04/17 11:56 Last Admin: 07/02/17 08:26 Dose: 1 tab Paroxetine HCl (Paxil) 30 mg PO DAILY [facility] - Labs Labs: 07/02/17 09:25 07/02/17 09:20 PT 11.2 Seconds (9.8-13.1) 07/01/17 01:12 INR 1.0 (0.9-1.2) 07/01/17 01:12 APTT 27.9 Seconds (25.6-37.1) 07/01/17 01:12 - Constitutional Appears: No Acute Distress - Head Exam Head Exam: NORMAL INSPECTION - Neurological Exam Neurological Exam: Alert, Awake, CN II-XII Intact, Oriented x3 Neuro motor strength exam: Left Upper Extremity: 5, Right Upper Extremity: 5, Left Lower Extremity: 5, Right Lower Extremity: 5 Additional comments: Alert, CN II-XII Intact, Oriented x3. Decreased sensation in hands and feet to LT and vibration. Strength is symmetrical. Reflexes are diminished. Plantar responses are muted. Assessment and Plan (1) Encephalopathy Assessment & Plan: Case discussed with Dr. King, continue all current medical regimen. Follow up EEG and repeat CT of the head without contrast. Status: Acute
--- NOTE | 2017-07-02 11:01 | CP.PCM.PN ---
Subjective - Date & Time of Evaluation Date of Evaluation: 07/02/17 Time of Evaluation: 09:00 - Subjective Subjective: awake and alert no meningeal signs Objective - Vital Signs/Intake and Output Vital Signs (last 24 hours): Temp Pulse Resp BP Pulse Ox 97.9 F 97 H 9 L 139/91 H 99 07/02/17 08:00 07/02/17 08:00 07/02/17 08:00 07/02/17 08:00 07/02/17 08:00 - Medications Medications: Current Medications Bacitracin (Bacitracin) 1 ea TOP TID [facility] Last Admin: 07/02/17 08:24 Dose: 1 ea Clonazepam (Klonopin) 2 mg PO DAILY [facility] Last Admin: 07/02/17 08:26 Dose: 2 mg Divalproex Sodium (Depakote Dr(*Bid*)) 500 mg PO BID [facility] Last Admin: 07/02/17 08:24 Dose: 500 mg Lorazepam (Ativan) 1 mg IVP Q4 PRN PRN Reason: Agitation Last Admin: 07/01/17 11:55 Dose: 1 mg Lorazepam (Ativan) 2 mg IVP Q4H PRN PRN Reason: Seizure activity Lorazepam (Ativan) 1 mg IM Q4H PRN PRN Reason: Agitation Last Admin: 07/02/17 04:49 Dose: 1 mg Oxycodone/Acetaminophen (Percocet 5/325 Mg Tab) 1 tab PO Q6 PRN PRN Reason: Pain, moderate (4-7) Stop: 07/04/17 11:56 Last Admin: 07/02/17 08:26 Dose: 1 tab Paroxetine HCl (Paxil) 30 mg PO DAILY [facility] - Labs Labs: 07/02/17 09:25 07/02/17 09:20 PT 11.2 Seconds (9.8-13.1) 07/01/17 01:12 INR 1.0 (0.9-1.2) 07/01/17 01:12 APTT 27.9 Seconds (25.6-37.1) 07/01/17 01:12 - Constitutional Appears: Non-toxic, No Acute Distress - Head Exam Head Exam: NORMOCEPHALIC - Eye Exam Eye Exam: PERRL. absent: Scleral icterus - ENT Exam ENT Exam: Mucous Membranes Dry - Neck Exam Neck Exam: absent: Lymphadenopathy - Respiratory Exam Respiratory Exam: Decreased Breath Sounds - Cardiovascular Exam Cardiovascular Exam: REGULAR RHYTHM - GI/Abdominal Exam GI & Abdominal Exam: Soft. absent: Tenderness - Rectal Exam Rectal Exam: Deferred - Exam Exam: NORMAL INSPECTION - Extremities Exam Extremities Exam: absent: Pedal Edema - Back Exam Back Exam: absent: CVA tenderness (L), CVA tenderness (R) - Neurological Exam Neurological Exam: Alert, Awake, Oriented x3 Assessment and Plan (1) Altered mental status Status: Acute (2) Periorbital hematoma of left eye Status: Acute (3) HIV (human immunodeficiency virus infection) Status: Chronic (4) Substance abuse Status: Chronic
--- NOTE | 2017-07-02 11:53 | CT ---
PROCEDURE: CT HEAD WITHOUT CONTRAST. HISTORY: AMS, facial injury COMPARISON: Unenhanced head CT 07/01/2017. TECHNIQUE: Axial computed tomography images were obtained through the head/brain without intravenous contrast. Radiation dose: Total exam DLP = 945.16 mGy-cm. This CT exam was performed using one or more of the following dose reduction techniques: Automated exposure control, adjustment of the mA and/or kV according to patient size, and/or use of iterative reconstruction technique. FINDINGS: HEMORRHAGE: No intracranial hemorrhage. BRAIN: Stable appearing diffuse cerebral atrophy chronic microangiopathy are reiterated. A chronic lacune is favored over dilated perivascular space at the right basal ganglia inferiorly once again. Corticomedullary differentiation remains adequately preserved and there is no mass effect. Midline brain anatomy is stable. No suspicious extra-axial fluid collections identified. No obvious cortical edema is noted. VENTRICLES: Unremarkable. No hydrocephalus. CALVARIUM: No fracture of the calvarium. PARANASAL SINUSES: New complete opacification left maxillary sinus again seen status post fractures of the lamina papyracea, anterior wall maxillary sinus as well as the lateral wall maxillary sinus, inferior margins left orbit and lateral left orbital wall. Hematoma is again seen within this left maxillary sinus. MASTOID AIR CELLS: Unremarkable as visualized. No inflammatory changes. OTHER FINDINGS: None. IMPRESSION: Stable age related neuro degenerative change are identified within the intracranial contents once again without cortical edema or loss of the corticomedullary differentiation. There is no interval mass effect or extra-axial fluid collection appreciated throughout. Consider follow-up CT or MRI as indicated. Posttraumatic left maxilla and orbital bony findings again evident as discussed above.
[2017-07-02] MEDS ORDERED: Enoxaparin 40 mg Syringe SC SCH (15:30)
[2017-07-03 08:03] LABS: HEMOGLOBIN 13.8 g/dL (12.0-18.0); MEAN CELL VOLUME 84.8 fl (80.0-94.0); MEAN CORPUSCULAR HGB CONC 33.1 g/dL (33.0-37.0); RBC 4.93 Mil/uL (4.40-5.90); RED CELL DISTRIBUTION WIDTH 14.9 % (11.5-14.5); WHITE BLOOD COUNT 6.5 K/uL (4.8-10.8)
[2017-07-03 08:18] LABS: BLOOD UREA NITROGEN 15 mg/dl (9-20); CALCIUM 8.8 mg/dL (8.4-10.2); GFR AFRICAN-AMERICAN > 60; GFR NON-AFRICAN AMERICAN > 60
--- NOTE | 2017-07-03 08:35 | CARD ---
APPROVED REPORT EKG Measurement Heart [id number] <Conclusion> Normal sinus rhythm Right bundle branch block Abnormal ECG
[2017-07-03] MEDS: Bacitracin 500 Units/gm Oint Foilpak UD TOP SCH ×3 (09:25→17:02)
[2017-07-03] MEDS: Enoxaparin 40 mg Syringe SC SCH (09:26)
--- NOTE | 2017-07-03 10:21 | CP.PCM.PN ---
Subjective - Date & Time of Evaluation Date of Evaluation: 07/03/17 Time of Evaluation: 10:14 - Subjective Subjective: Family Medicine Progress Note 62 year old male PMHx Depression, Anxiety, HIV (CD4 326,viral load undetect 2016), Hep C seen and evaluated at bedside. Patient hemodynamically stable and NAD. NAEO. 1:1 sitter remains at bedside. Patient denies any complaints to his face; aware of his injuries but no pain. Patient only endorses neuropathic pain in his legs. Denies headache, photophobia, nausea, vomiting, fever, chills, diarrhea, chest pain, abd pain, SOB. Objective - Vital Signs/Intake and Output Vital Signs (last 24 hours): Temp Pulse Resp BP Pulse Ox 97.4 F L 81 20 147/93 H 97 07/03/17 08:16 07/03/17 08:16 07/03/17 08:16 07/03/17 08:16 07/03/17 08:16 - Medications Medications: Current Medications Bacitracin (Bacitracin) 1 ea TOP TID [facility] Last Admin: 07/03/17 09:25 Dose: 1 ea Clonazepam (Klonopin) 2 mg PO DAILY [facility] Last Admin: 07/03/17 09:24 Dose: 2 mg Divalproex Sodium (Depakote Dr(*Bid*)) 500 mg PO BID [facility] Last Admin: 07/02/17 16:36 Dose: 500 mg Enoxaparin Sodium (Lovenox) 40 mg SC DAILY [facility] PRN Reason: Protocol Last Admin: 07/03/17 09:26 Dose: 40 mg Lorazepam (Ativan) 1 mg IVP Q4 PRN PRN Reason: Agitation Last Admin: 07/01/17 11:55 Dose: 1 mg Lorazepam (Ativan) 2 mg IVP Q4H PRN PRN Reason: Seizure activity Lorazepam (Ativan) 1 mg IM Q4H PRN PRN Reason: Agitation Last Admin: 07/03/17 09:32 Dose: 1 mg Oxycodone/Acetaminophen (Percocet 5/325 Mg Tab) 1 tab PO Q6 PRN PRN Reason: Pain, moderate (4-7) Stop: 07/04/17 11:56 Last Admin: 07/02/17 08:26 Dose: 1 tab Paroxetine HCl (Paxil) 30 mg PO DAILY [facility] Last Admin: 07/03/17 09:25 Dose: 30 mg - Labs Labs: 07/03/17 07:35 07/03/17 07:35 PT 11.2 Seconds (9.8-13.1) 07/01/17 01:12 INR 1.0 (0.9-1.2) 07/01/17 01:12 APTT 27.9 Seconds (25.6-37.1) 07/01/17 01:12 - Constitutional Appears: Non-toxic, No Acute Distress, Unkempt - Head Exam Additional comments: Chin laceration - Eye Exam Eye Exam: EOMI, Periorbital swelling (left). absent: Normal appearance Additional comments: Left eye hemorrhage Left periorbital contusion + laceration - ENT Exam ENT Exam: Mucous Membranes Moist, Normal Exam - Neck Exam Neck Exam: Full ROM. absent: Tenderness - Respiratory Exam Respiratory Exam: Clear to Ausculation Bilateral, NORMAL BREATHING PATTERN. absent: Rales, Rhonchi, Wheezes, Respiratory Distress - Cardiovascular Exam Cardiovascular Exam: REGULAR RHYTHM, +S1, +S2. absent: Murmur - GI/Abdominal Exam GI & Abdominal Exam: Soft. absent: Tenderness - Extremities Exam Extremities Exam: Full ROM. absent: Pedal Edema, Tenderness Additional comments: Freely moving upper and lower extremities b/l - Back Exam Back Exam: Full ROM, NORMAL INSPECTION. absent: tenderness - Neurological Exam Neurological Exam: Alert, Awake, Oriented x3 Additional comments: Neg kernig and brudzinski signs - Psychiatric Exam Psychiatric exam: Agitated Additional comments: Irritable, hyperactive, quick speech Assessment and Plan - Assessment and Plan (Free Text) Assessment: 62 YO Male with PMH of Depression, Anxiety, Hep C, HIV (CD4 326,viral load undetected 01/2017) admitted for AMS, fall, facial injury. HEENT AMS -improving -may be secondary amitriptyline intox, multiple meds regimen, drug -Poison center consulted: suggested bicarb and repeat EKG, ABG -CT Head w/o contrast: no intracranial hemorrhage. no mass, dilated perivascular space vs chronic lacunar infarct about right basal ganglia.no edema -acetaminophen < 10, salicilate levels <1, urine tox + benzo, TSH mildly elevated 11.1, ETOH neg -Neurology consulted; Likely due to a combination of HIV encephalopathy, toxic- metabolic encephalopathy, and injury. Recommend starting 500 mg Depakote BID. EEG and a follow-up CT head is recommended. -Follow up CT: no intracranial hemorrhage. no interval mass effect or extra- axial fluid collection. -Depakote levels pending -Ativan PRN Facial trauma -with orbital fracture and zygomatic fracture -left eye abrasion, chin lac -CT maxillofacial w/o contrast: mild depressed fracture floor of left orbit, medial wall, lateral wall, fracture anterior wall left maxillary sinus and fracture left zygomatic arch -percocet for pain -Plastic surgery consulted, pt seen by resident, attempted to repair lac but patient refused and was agitated. Bacitracin cream to lacerations and will reattempt repair at a later time. -ENT consulted, pending recs -Dental consulted, pending recs Cardiovascular QT prolongation -likely 2/2 amitriptilyne intoxication -s/p bicarb in Ed -repeat EKG 07/01/17: sinus rhythm with RBBB, rate of 88. QTc is 525 -repeat EKG 07/02/17: sinus rhythm with RBBB, rate 84, QTc 475 -continue to monitor Respiratory Pt breathing comfortably in RA. GI Heart healthy diet Hematuria -hematuria with rbc of 22 in urine -likely 2/2 to fall -UA sig for wbc 17, with haline casts, sedimentation and calcium oxalate crystals -f/u repeat UA Immune/hematology HIV -last CD4 326 01/2017 -viral load undetectable 01/2017 -will have pt bring in his home HIV meds -f/u CD4, viral load Hep C -genotype 2 B -09/22/16 HCV noemí load 2 278 080 -pt during clinic visit refuse to go GI and treatment -f/u HCV viral load Extremities Peripheral neuropathy -Start Gabapentin 100mg PO BID for lower extremity neuropathic pain Psych Depression/Anxiety/benzo dependence -restarted home med today, paroxetine -continue Klonopin, an attempt was made to taper in outpatient -psych consulted, pending recs -1:1 sitter Integumentary DVT Prophylaxis -SCDs -Lovenox 40mg SC QD
[2017-07-03] MEDS: Divalproex 500 mg DR(BID formulation) PO SCH ×2 (12:53→17:00)
[2017-07-03] MEDS: Oxycodone/Acetaminophen 5/325 mg Tab PO PRN (17:07)
--- NOTE | 2017-07-03 23:05 | CP.PCM.CON ---
History of Present Illness - History of Present Illness History of Present Illness: called to see pt currently admitted in rm 669-1. pt admitted 2nd to fall at home. pt does not recall falling at time of this consult. staff report that pt has been irritable at times requiring redirection, prn medication and the placement of 1 to 1 for safety. pt. is known to [facility]. Pt. has been receiving psychiatric services within context of [facility]. Review of Systems - Psychiatric Psychiatric: Anxiety, Behavioral Changes, Irritability, Panic Attacks Past Patient History - Past Medical History & Family History Past Medical History?: Yes - Past Social History Smoking Status: Smoker Currrent Status Unknown Home Situation {Lives}: With Family - CARDIAC Hx Cardiac Disorders: Yes - PULMONARY Hx Respiratory Disorders: Yes - NEUROLOGICAL Hx Neurological Disorder: No - HEENT Hx HEENT Problems: Yes - RENAL Hx Chronic Kidney Disease: No - ENDOCRINE/METABOLIC Hx Endocrine Disorders: No - HEMATOLOGICAL/ONCOLOGICAL Hx Blood Disorders: Yes Hx Human Immunodeficiency Virus (HIV): Yes - INTEGUMENTARY Hx Dermatological Problems: Yes - MUSCULOSKELETAL/RHEUMATOLOGICAL Hx Musculoskeletal Disorders: Yes Hx Back Pain: Yes - GASTROINTESTINAL Hx Gastrointestinal Disorders: No - GENITOURINARY/GYNECOLOGICAL Hx Genitourinary Disorders: No - PSYCHIATRIC Hx Psychophysiologic Disorder: Yes - SURGICAL HISTORY Hx Surgeries: Yes Hx Tonsillectomy: Yes - ANESTHESIA Hx Anesthesia: Yes Hx Anesthesia Reactions: No Hx Malignant Hyperthermia: No Meds Allergies/Adverse Reactions: Allergies Allergy/AdvReac Type Severity Reaction Status Date / Time Penicillins Allergy REDNESS Verified 09/19/16 02:44 sulfamethoxazole Allergy FATIGUE Verified 09/19/16 02:44 [From Bactrim] trimethoprim [From Bactrim] Allergy FATIGUE Verified 09/19/16 02:44 - Medications Medications: Current Medications Alprazolam (Xanax) 1 mg PO Q8 PRN PRN Reason: Anxiety Bacitracin (Bacitracin) 1 ea TOP TID [facility] Last Admin: 07/03/17 17:02 Dose: 1 ea Clonazepam (Klonopin) 2 mg PO DAILY [facility] Last Admin: 07/03/17 09:24 Dose: 2 mg Divalproex Sodium (Depakote Dr(*Bid*)) 500 mg PO BID [facility] Last Admin: 07/03/17 17:00 Dose: 500 mg Enoxaparin Sodium (Lovenox) 40 mg SC DAILY [facility] PRN Reason: Protocol Last Admin: 07/03/17 09:26 Dose: 40 mg Gabapentin (Neurontin) 100 mg PO TID [facility] Last Admin: 07/03/17 17:01 Dose: 100 mg Nicotine (Nicoderm Cq) 1 patch TD DAILY [facility] Last Admin: 07/03/17 17:00 Dose: 1 patch Oxycodone/Acetaminophen (Percocet 5/325 Mg Tab) 1 tab PO Q6 PRN PRN Reason: Pain, moderate (4-7) Stop: 07/06/17 15:28 Last Admin: 07/03/17 17:07 Dose: 1 tab Paroxetine HCl (Paxil) 30 mg PO DAILY [facility] Last Admin: 07/03/17 09:25 Dose: 30 mg Physical Exam - Constitutional Appears: Unkempt Additional comments: hospital attire initially seen outside of room with one to one for safety in place, pt initially states wants "his alprazolam" and pt was redirectable via verbal redirection to bed, pt is noted with left periorbital echymosis, slow fairly steady gait, pt track with eyes, speech is at times somewhat louder but is redirectable to a more regular softer tone of voice (pt. is at baseline related to voice as compared to presentation at [facility]), thought process at times circumstantial, focused on "alprazolam"-is redirectable to recall that [facility] clonazpam was being prescribed. pt. is a/o x 4, mood is reported to be "stressed", affect is initially irritable and is later more controlled. Denies s/i, h/i or psychosis. insight and judgment is fair-when offered information related to need with likely benefty for eeg-pt is verbally agreeable to have done in am IT WAS EXPRESSLY MADE CLEAR THAT NO TIME COULD BE GUARANTEED TO TIME OF EEG, THAT MEDICAL TEAM WILL NEED TO EVALUATE AND A POTENTIAL DISCHARGE DATE COULD NOT GIVEN IT WOULD BE PENDING MEDICAL EVALUATION, WHEN QUERIED TO POTENTIAL RISK OF LEAVING WITHOUT APPROPRIATE MEDICAL CLEARANCE PT STATED THAT IT COULD KILL ME, WHEN QUERIED TO HOW IS ELDERLY MOTHER WITH WHOM HE LIVES WITH MIGHT FEEL IF HE(PT.) WAS TO "IT WOULD KILL HER I LOVE HER TOO MUCH I WOULD NOT WANT TO DO THAT". WHEN PT QUERIED TO IF HE WERE TO STAY COULD HE GET HIS "XANAX" IT WAS EXPLAINED TO PATIENT "NO MEDICATION WOULD BE GUARANTEED AND THAT AT [facility] ALPRAZOLAM WAS NO LONGER BEING PRESCRIBED IT WOULD NOT BE THE RECOMMENDATION OF THIS ENERGY EFFICIENCY FINANCE MANAGER THAT ALRPAZOLAM BE PRESCRIBED" PT VERBALIZED UNDERSTANDING " LONG I GET MY KLONOPIN". Results - Vital Signs Recent Vital Signs: Last Vital Signs Temp 98 F 07/03/17 16:03 Pulse 84 07/03/17 16:03 Resp 18 07/03/17 16:03 BP 134/82 07/03/17 16:03 Pulse Ox 97 07/03/17 16:03 - Labs Result Diagrams: 07/03/17 07:35 07/03/17 07:35 Labs: Laboratory Results - last 24 hr 07/03/17 07/03/17 07:35 07:35 WBC 6.5 RBC 4.93 Hgb 13.8 Hct 41.8 MCV 84.8 MCH 28.0 MCHC 33.1 RDW 14.9 H Plt Count 162 Sodium 145 Potassium 3.6 Chloride 106 Carbon Dioxide 26 Anion Gap 17 BUN 15 Creatinine 0.8 Est GFR ( Amer) > 60 Est GFR (Non-Af Amer) > 60 Random Glucose 103 Calcium 8.8 - Impressions Impression: Generalized Anxiety Disorder with Panic intermediate school teacher benzodiazepine use hx of opiate use remote per hx Assessment & Plan - Assessment and Plan (Free Text) Plan: recommend pt be maintained on one to one and to be re evaluated in am should be maintained on falls risk precautions recommend that clonazepam be prescribed as 0.5mg po 9a, 1pm, 5pm and 9pm=2mg total daily dose recommend that alprazolam be discontinued prn recommend prn lorazepam be used (both po and IM) with maximum daily use (po/IM) 6mg unless primary team notified continue paxil 30mg po daily pt. can be re referred back to [facility] if clinically indicated for psychiatric care psychiatry can be resconsulted - Date & Time Date: 07/03/17 Time: 18:45
[2017-07-04 01:19] VITALS: RESP 20
[2017-07-04 06:20] LABS: HEMOGLOBIN 13.7 g/dL (12.0-18.0); MEAN CELL VOLUME 85.4 fl (80.0-94.0); MEAN CORPUSCULAR HEMOGLOBIN 27.9 pg (27.0-31.0); MEAN CORPUSCULAR HGB CONC 32.7 g/dL (33.0-37.0); RBC 4.92 Mil/uL (4.40-5.90); RED CELL DISTRIBUTION WIDTH 14.7 % (11.5-14.5); WHITE BLOOD COUNT 5.6 K/uL (4.8-10.8)
[2017-07-04 06:39] LABS: BLOOD UREA NITROGEN 19 mg/dl (9-20); CALCIUM 8.9 mg/dL (8.4-10.2); GFR AFRICAN-AMERICAN > 60; GFR NON-AFRICAN AMERICAN > 60
--- NOTE | 2017-07-04 07:27 | CP.PCM.PN ---
Subjective - Date & Time of Evaluation Date of Evaluation: 07/04/17 Time of Evaluation: 07:27 Objective - Vital Signs/Intake and Output Vital Signs (last 24 hours): Temp Pulse Resp BP Pulse Ox 97.8 F 81 20 149/89 95 07/04/17 01:18 07/04/17 01:18 07/04/17 01:18 07/04/17 01:18 07/04/17 01:18 - Medications Medications: Current Medications Alprazolam (Xanax) 1 mg PO Q8 PRN PRN Reason: Anxiety Bacitracin (Bacitracin) 1 ea TOP TID [facility] Last Admin: 07/03/17 17:02 Dose: 1 ea Clonazepam (Klonopin) 2 mg PO DAILY [facility] Last Admin: 07/03/17 09:24 Dose: 2 mg Divalproex Sodium (Depakote Dr(*Bid*)) 500 mg PO BID [facility] Last Admin: 07/03/17 17:00 Dose: 500 mg Enoxaparin Sodium (Lovenox) 40 mg SC DAILY [facility] PRN Reason: Protocol Last Admin: 07/03/17 09:26 Dose: 40 mg Gabapentin (Neurontin) 100 mg PO TID [facility] Last Admin: 07/03/17 17:01 Dose: 100 mg Nicotine (Nicoderm Cq) 1 patch TD DAILY [facility] Last Admin: 07/03/17 17:00 Dose: 1 patch Oxycodone/Acetaminophen (Percocet 5/325 Mg Tab) 1 tab PO Q6 PRN PRN Reason: Pain, moderate (4-7) Stop: 07/06/17 15:28 Last Admin: 07/03/17 17:07 Dose: 1 tab Paroxetine HCl (Paxil) 30 mg PO DAILY [facility] Last Admin: 07/03/17 09:25 Dose: 30 mg - Labs Labs: 07/04/17 06:00 07/04/17 06:00 PT 11.2 Seconds (9.8-13.1) 07/01/17 01:12 INR 1.0 (0.9-1.2) 07/01/17 01:12 APTT 27.9 Seconds (25.6-37.1) 07/01/17 01:12
--- NOTE | 2017-07-04 07:51 | CP.PCM.PN ---
Subjective - Date & Time of Evaluation Date of Evaluation: 07/04/17 Time of Evaluation: 07:51 - Subjective Subjective: No acute overnight events. Pt attempted to leave AMA yesterday but decided to stay and get his EEG. "I want to go home, but I guess I should do this EEG first." Pt states that he feels well, just has pain around his L orbit and face but "its not too bad." Denies headache, dizziness, photophobia, chest pain, n/v/ d/c. Last BM was two days ago, normal per patient. Objective - Vital Signs/Intake and Output Vital Signs (last 24 hours): Temp Pulse Resp BP Pulse Ox 97.8 F 81 20 149/89 95 07/04/17 01:18 07/04/17 01:18 07/04/17 01:18 07/04/17 01:18 07/04/17 01:18 - Medications Medications: Current Medications Alprazolam (Xanax) 1 mg PO Q8 PRN PRN Reason: Anxiety Bacitracin (Bacitracin) 1 ea TOP TID [facility] Last Admin: 07/03/17 17:02 Dose: 1 ea Clonazepam (Klonopin) 0.5 mg PO QID [facility] Divalproex Sodium (Depakote Dr(*Bid*)) 500 mg PO BID [facility] Last Admin: 07/03/17 17:00 Dose: 500 mg Enoxaparin Sodium (Lovenox) 40 mg SC DAILY [facility] PRN Reason: Protocol Last Admin: 07/03/17 09:26 Dose: 40 mg Gabapentin (Neurontin) 100 mg PO TID [facility] Last Admin: 07/03/17 17:01 Dose: 100 mg Nicotine (Nicoderm Cq) 1 patch TD DAILY [facility] Last Admin: 07/03/17 17:00 Dose: 1 patch Oxycodone/Acetaminophen (Percocet 5/325 Mg Tab) 1 tab PO Q6 PRN PRN Reason: Pain, moderate (4-7) Stop: 07/06/17 15:28 Last Admin: 07/03/17 17:07 Dose: 1 tab Paroxetine HCl (Paxil) 30 mg PO DAILY [facility] Last Admin: 07/03/17 09:25 Dose: 30 mg - Labs Labs: 07/04/17 06:00 07/04/17 06:00 PT 11.2 Seconds (9.8-13.1) 07/01/17 01:12 INR 1.0 (0.9-1.2) 07/01/17 01:12 APTT 27.9 Seconds (25.6-37.1) 07/01/17 01:12 - Constitutional Appears: No Acute Distress, Other (hematoma around the L orbit, small lac in chin and L eyelid) - Head Exam Head Exam: NORMOCEPHALIC - Eye Exam Eye Exam: EOMI Additional comments: Left eye hemorrhage Left periorbital contusion + laceration L subconjunctival hemorrhage, but EOMI, and vision intact - ENT Exam ENT Exam: Mucous Membranes Moist - Neck Exam Neck Exam: Full ROM Additional comments: Neg kernig and brudzinski signs - Respiratory Exam Respiratory Exam: Clear to Ausculation Bilateral, NORMAL BREATHING PATTERN. absent: Wheezes - Cardiovascular Exam Cardiovascular Exam: REGULAR RHYTHM, +S1, +S2 - GI/Abdominal Exam GI & Abdominal Exam: Soft, Normal Bowel Sounds. absent: Tenderness - Extremities Exam Extremities Exam: Full ROM, Normal Capillary Refill, Normal Inspection - Back Exam Back Exam: NORMAL INSPECTION - Neurological Exam Neurological Exam: Alert, Awake, Oriented x3 - Psychiatric Exam Psychiatric exam: Normal Affect, Normal Mood - Skin Skin Exam: Dry, Intact, Normal Color, Warm Assessment and Plan - Assessment and Plan (Free Text) Assessment: Assessment/Plan: 62 YO Male with PMH of Depression, Anxiety, Hep C, HIV (CD4 326,viral load undetected 01/2017) admitted for AMS, fall, facial injury. HEENT AMS -resolved, AAO x 3 today -has episodes of anxiety -may be secondary amitriptyline intox, multiple meds regimen, drug -Amitriptyline levels pending -Poison center consulted: suggested bicarb and repeat EKG, ABG -CT Head w/o contrast: no intracranial hemorrhage. no mass, dilated perivascular space vs chronic lacunar infarct about right basal ganglia.no edema -acetaminophen < 10, salicilate levels <1, urine tox + benzo, TSH mildly elevated 11.1, ETOH neg -Neurology consulted; Likely due to a combination of HIV encephalopathy, toxic- metabolic encephalopathy, and injury. Recommend starting 500 mg BID. EEG and a follow-up CT head is recommended. -Pending EEG -depakote level appreciated, 47.5 low Facial trauma -with orbital fracture and zygomatic fracture -left eye abrasion, chin lac -CT maxillofacial w/o contrast: mild depressed fracture floor of left orbit, medial wall, lateral wall, fracture anterior wall left maxillary sinus and fracture left zygomatic arch -percocet for pain -Plastic surgery consulted, pt seen by resident, attempted to repair lac but patient refused and was agitated. Bacitracin cream to lacerations and will reattempt repair at a later time. -ENT consulted, pending recs -Dental consulted, pending recs Subconjunctival Hemorrhage and hyphema -keep head of the bed to 30 degree elevated -EMOI and vision intact -continue to monitor Cardiovascular QTc prolongation -improving -likely 2/2 amitriptilyne intoxication -s/p bicarb in ED -repeat ekg 07/01/17; sinus rhythm with RBBB, rate of 88. QTc 525 -repeat EKG 07/02/17: Normal sinus with RBBB, rate of 84, QTc 475 -continue to monitor Respiratory Pt breathing comfortably in RA. GI Heart healthy diet Hematuria -hematuria with rbc of 22 in urine -likely 2/2 to fall -UA sig for wbc 17, with haline casts, sedimentation and calcium oxalate crystals -repeat UA Immune/hematology HIV -last CD4 326 01/2017 -viral load undetectable 01/2017 -will have pt bring in his home HIV meds -f/u CD4, viral load Hep C -genotype 2 B -09/22/16 HCV noemí load 2 278 080 -pt during clinic visit refuse to go GI and treatment -f/u HCV viral load Extremities Peripheral neuropathy -continue Gabapentin 100mg PO BID for lower extremity neuropathic pain Psych Depression/Anxiety/benzo dependence -psych consulted, recs appreciated -continue paroxetine -clonozapam 0.5mg PO @ 9, 1, 5, 9 -lorazapam as needed, 6mg max dose -re-evaluated in am should be maintained on falls risk precautions -1:1 sitter -follow up exam as outpatient Integumentary DVT Prophylaxis -SCD -Lovonox 40 sc
[2017-07-04] MEDS: Divalproex 500 mg DR(BID formulation) PO SCH ×2 (08:13→16:07)
[2017-07-04] MEDS: Enoxaparin 40 mg Syringe SC SCH (08:14)
[2017-07-04] MEDS: Bacitracin 500 Units/gm Oint Foilpak UD TOP SCH ×2 (08:21→14:35)
[2017-07-04] MEDS: Oxycodone/Acetaminophen 5/325 mg Tab PO PRN (12:05)
--- NOTE | 2017-07-04 13:56 | CP.PCM.PN ---
Subjective - Date & Time of Evaluation Date of Evaluation: 07/04/17 Time of Evaluation: 09:00 - Subjective Subjective: awake and alert no fever consider restarting HAART rx Objective - Vital Signs/Intake and Output Vital Signs (last 24 hours): Temp Pulse Resp BP Pulse Ox 97.5 F L 77 20 150/89 95 07/04/17 08:43 07/04/17 08:43 07/04/17 08:43 07/04/17 08:43 07/04/17 08:43 - Medications Medications: Current Medications Bacitracin (Bacitracin) 1 ea TOP TID [facility] Last Admin: 07/04/17 08:21 Dose: 1 ea Clonazepam (Klonopin) 0.5 mg PO QID [facility] Last Admin: 07/04/17 08:13 Dose: 0.5 mg Divalproex Sodium (Depakote Dr(*Bid*)) 500 mg PO BID [facility] Last Admin: 07/04/17 08:13 Dose: 500 mg Enoxaparin Sodium (Lovenox) 40 mg SC DAILY [facility] PRN Reason: Protocol Last Admin: 07/04/17 08:14 Dose: 40 mg Gabapentin (Neurontin) 100 mg PO TID [facility] Last Admin: 07/04/17 12:05 Dose: 100 mg Lorazepam (Ativan) 2 mg PO Q8 PRN PRN Reason: Anxiety Last Admin: 07/04/17 08:21 Dose: 2 mg Lorazepam (Ativan) 2 mg IM Q8 PRN PRN Reason: Anxiety Nicotine (Nicoderm Cq) 1 patch TD DAILY [facility] Last Admin: 07/04/17 08:13 Dose: 1 patch Oxycodone/Acetaminophen (Percocet 5/325 Mg Tab) 1 tab PO Q6 PRN PRN Reason: Pain, moderate (4-7) Stop: 07/06/17 15:28 Last Admin: 07/04/17 12:05 Dose: 1 tab Paroxetine HCl (Paxil) 30 mg PO DAILY [facility] Last Admin: 07/04/17 08:13 Dose: 30 mg - Labs Labs: 07/04/17 06:00 07/04/17 06:00 PT 11.2 Seconds (9.8-13.1) 07/01/17 01:12 INR 1.0 (0.9-1.2) 01/07/18 01:12 APTT 27.9 Seconds (25.6-37.1) 07/01/17 01:12 - Constitutional Appears: Non-toxic, Chronically Ill - Head Exam Head Exam: NORMOCEPHALIC - Eye Exam Eye Exam: PERRL - ENT Exam ENT Exam: Mucous Membranes Dry - Neck Exam Neck Exam: absent: Lymphadenopathy - Respiratory Exam Respiratory Exam: Decreased Breath Sounds - Cardiovascular Exam Cardiovascular Exam: REGULAR RHYTHM - GI/Abdominal Exam GI & Abdominal Exam: Distended - Rectal Exam Rectal Exam: Deferred - Exam Exam: NORMAL INSPECTION Assessment and Plan (1) Altered mental status Status: Acute (2) Periorbital hematoma of left eye Status: Acute (3) HIV (human immunodeficiency virus infection) Status: Chronic (4) Substance abuse Status: Chronic
[2017-07-04 16:11] VITALS: BP 135/86; PULSE 72; TEMP 98.4; O2SAT 97
--- NOTE | 2017-07-05 06:54 | CP.PCM.DIS ---
Provider - Provider Date of Admission: 07/01/17 00:54 Attending physician: Bridget Aviles MD Primary care physician: Dr. Ramirez Consults: [facility] Neurology - Dr. King ENT - Dr. Elbert Roberto Plastics - Dr. Garcia Psychiatry - Dr. Naranjo Time Spent in preparation of Discharge (in minutes): 30 Hospital Course - Lab Results Lab Results: Micro Results 07/02/17 19:06 Nose MRSA Culture (Admit) - Final MRSA NOT DETECTED 07/01/17 06:40 Nose MRSA Culture (Admit) - Final MRSA NOT DETECTED Most Recent Lab Values WBC 5.6 K/uL (4.8-10.8) 07/04/17 06:00 RBC 4.92 Mil/uL (4.40-5.90) 07/04/17 06:00 Hgb 13.7 g/dL (12.0-18.0) 07/04/17 06:00 Hct 42.0 % (35.0-51.0) 07/04/17 06:00 MCV 85.4 fl (80.0-94.0) 07/04/17 06:00 MCH 27.9 pg (27.0-31.0) 07/04/17 06:00 MCHC 32.7 g/dL (33.0-37.0) L 07/04/17 06:00 RDW 14.7 % (11.5-14.5) H 07/04/17 06:00 Plt Count 156 K/uL (130-400) 07/04/17 06:00 MPV 10.1 fl (7.2-11.7) 07/01/17 06:35 Neut % (Auto) 54.2 % (50.0-75.0) 07/01/17 06:35 Lymph % (Auto) 37.7 % (20.0-40.0) 07/01/17 06:35 [place] % (Auto) 7.1 % (0.0-10.0) 07/01/17 06:35 Eos % (Auto) 0.5 % (0.0-4.0) 07/01/17 06:35 Baso % (Auto) 0.5 % (0.0-2.0) 07/01/17 06:35 Neut # 5.2 K/uL (1.8-7.0) 07/01/17 06:35 Lymph # 3.6 K/uL (1.0-4.3) 07/01/17 06:35 [place] # 0.7 K/uL (0.0-0.8) 07/01/17 06:35 Eos # 0.1 K/uL (0.0-0.7) 07/01/17 06:35 Baso # 0.1 K/uL (0.0-0.2) 07/01/17 06:35 ESR 28 mm/hr (0-20) H 07/01/17 06:35 PT 11.2 Seconds (9.8-13.1) 07/01/17 01:12 INR 1.0 (0.9-1.2) 07/01/17 01:12 APTT 27.9 Seconds (25.6-37.1) 07/01/17 01:12 pCO2 41 mm/Hg (35-45) 07/01/17 08:40 pO2 72 mm/Hg (80-100) L 07/01/17 08:40 HCO3 30.5 mmol/L (21-28) H 07/01/17 08:40 ABG pH 7.49 (7.35-7.45) H 07/01/17 08:40 ABG Total CO2 32.5 mmol/L (22-28) H 07/01/17 08:40 ABG O2 Saturation 97.8 % (95-98) 07/01/17 08:40 ABG O2 Content 18.0 ML/dL (15-23) 07/01/17 08:40 ABG Base Excess 7.2 mmol/L (-2.0-3.0) H 07/01/17 08:40 ABG Hemoglobin 13.6 g/dL (11.7-17.4) 07/01/17 08:40 ABG Carboxyhemoglobin 2.4 % (0.5-1.5) H 07/01/17 08:40 POC ABG HHb (Measured) 2.1 % (0.0-5.0) 07/01/17 08:40 ABG Methemoglobin 1.6 % (0.0-3.0) 07/01/17 08:40 ABG O2 Capacity 18.4 mL/dL (16-24) 07/01/17 08:40 Ruiz Test Yes 07/01/17 08:40 ABG Potassium 3.9 mmol/L (3.6-5.2) 06/30/17 00:08 A-a O2 Difference 26.0 mm/Hg 07/01/17 08:40 Hgb O2 Saturation 93.9 % (95.0-98.0) L 07/01/17 08:40 Sodium 139.0 mmol/L (132-148) 06/30/17 00:08 Chloride 109.0 mmol/L (98-107) H 06/30/17 00:08 Glucose 137 mg/dL (75-110) H 06/30/17 00:08 Lactate 2.7 mmol/L (0.7-2.1) H 06/30/17 00:08 Vent Mode 4lnc 06/30/17 00:08 FiO2 21.0 % 07/01/17 08:40 Crit Value Called To geraldo Epps 06/30/17 00:08 Crit Value Called By Deana goel 06/30/17 00:08 Crit Value Read Back Y 06/30/17 00:08 Blood Gas Notified Time 19 06/30/17 00:08 Sodium 144 mmol/l (132-148) 07/04/17 06:00 Potassium 3.9 MMOL/L (3.6-5.0) 07/04/17 06:00 Chloride 107 mmol/L (98-107) 07/04/17 06:00 Carbon Dioxide 27 mmol/L (22-30) 07/04/17 06:00 Anion Gap 14 (10-20) 07/04/17 06:00 BUN 19 mg/dl (9-20) 07/04/17 06:00 Creatinine 0.8 mg/dl (0.8-1.5) 07/04/17 06:00 Est GFR ( Amer) > 60 07/04/17 06:00 Est GFR (Non-Af Amer) > 60 07/04/17 06:00 POC Glucose (mg/dL) 144 mg/dL (65-110) H 06/30/17 21:11 Random Glucose 101 mg/dL (75-110) 07/04/17 06:00 Lactic Acid 1.6 MMOL/L (0.7-2.1) 07/01/17 09:15 Calcium 8.9 mg/dL (8.4-10.2) 07/04/17 06:00 Total Bilirubin 0.8 mg/dl (0.2-1.3) 07/01/17 00:06 AST 58 U/L (17-59) 07/01/17 00:06 ALT 60 U/L (21-72) 07/01/17 00:06 Alkaline Phosphatase 102 U/L (38-126) 07/01/17 00:06 Troponin I < 0.0120 ng/mL (0.00-0.120) 07/01/17 00:06 Total Protein 8.6 G/DL (6.3-8.2) H 07/01/17 00:06 Albumin 4.4 g/dL (3.5-5.0) 07/01/17 00:06 Globulin 4.2 gm/dL (2.2-3.9) H 07/01/17 00:06 Albumin/Globulin Ratio 1.0 (1.0-2.1) 07/01/17 00:06 Ethanolamine None detected 07/01/17 21:00 Thyroxine (T4) 11.1 ug/dl (5.5-11.0) H 07/01/17 00:06 T3 Uptake 29.4 % (23.0-41.0) 07/01/17 00:06 TSH 3rd Generation 2.33 mIU/ML (0.46-4.68) 07/01/17 00:06 Arterial Blood Potassium 3.9 mmol/L (3.6-5.2) 06/30/17 00:08 Urine Color Kandy (YELLOW) 07/01/17 19:20 Urine Clarity Turbid (Clear) 07/01/17 19:20 Urine pH 7.0 (5.0-8.0) 07/01/17 19:20 Ur Specific [place] 1.023 (1.003-1.030) 07/01/17 19:20 Urine Protein 100 mg/dL (NEGATIVE) 07/01/17 19:20 Urine Glucose (UA) Neg mg/dL (Normal) 07/01/17 19:20 Urine Ketones Negative mg/dL (NEGATIVE) 07/01/17 19:20 Urine Blood Negative (NEGATIVE) 07/01/17 19:20 Urine Nitrate Negative (NEGATIVE) 07/01/17 19:20 Urine Bilirubin Negative (NEGATIVE) 07/01/17 19:20 Urine Urobilinogen 4.0 mg/dL (0.2-1.0) 07/01/17 19:20 Ur Leukocyte Esterase Neg Mikey/uL (Negative) 07/01/17 19:20 Urine RBC (Auto) 22 /hpf (0-3) H 07/01/17 19:20 Urine Microscopic WBC 17 /hpf (0-5) H 07/01/17 19:20 Ur Squamous Epith Cells 2 /hpf (0-5) 07/01/17 19:20 Calcium Oxalate Crystal Occ /hpf (<OCC) H 07/01/17 19:20 Amorphous Sediment Many /ul (<OCC) H 07/01/17 19:20 Urine Bacteria Rare (<OCC) 07/01/17 19:20 Hyaline Casts 3-5 /hpf (0-2) H 07/01/17 19:20 Granular Casts (Auto) 4 /lpf (0-1) 07/01/17 19:20 Salicylates < 1.0 mg/dL 1 07/01/17 00:02 Urine Opiates Screen Negative (NEGATIVE) 07/01/17 19:20 Urine Methadone Screen Negative (NEGATIVE) 07/01/17 19:20 Acetaminophen < 10.0 ug/ml (10.0-30.0) L 07/01/17 00:02 Ur Barbiturates Screen Negative (NEGATIVE) 07/01/17 19:20 Valproic Acid 47.5 ug/mL (50.0-100.0) L 07/04/17 06:00 Ur Phencyclidine Scrn Negative (NEGATIVE) 07/01/17 19:20 Ur Amphetamines Screen Negative (NEGATIVE) 07/01/17 19:20 U Benzodiazepines Scrn Positive (NEGATIVE) 07/01/17 19:20 U Oth Cocaine Metabols Negative (NEGATIVE) 07/01/17 19:20 U Cannabinoids Screen Negative (NEGATIVE) 07/01/17 19:20 Alcohol, Quantitative < 10 mg/dl (0-10) 07/02/17 10:33 Methyl Alcohol Level None detected 07/01/17 21:00 Isopropanol None detected 07/01/17 21:00 Acetone Level None detected 07/01/17 21:00 HCV RNA (PCR) IUs/ml [id number] IU/mL (<15) H 07/01/17 06:35 HCV RNA PCR log IUs/ml 6.22 Log IU/mL (<1.18) H 07/01/17 06:35 - Hospital Course Hospital Course: 62 year old male PMHx depression, anxiety, Hep C, HIV admitted for AMS, fall, and facial injury. AMS resolved during hospital stay; likely due to a combination of HIV encephalopathy, toxic-metabolic encephalopathy, and injury. Patient underwent unremarkable hospital course with management of depression and anxiety with paroxetine, clonazepam, and lorazepam. Patient obtained EEG prior to discharge for evaluation of AMS, and will follow up with neurology as outpatient. Patient instructed to resume all home medications. F/U with Dr. Robertson upon discharge. Discharge Exam - Head Exam Head Exam: NORMOCEPHALIC - Eye Exam Eye Exam: EOMI Additional comments: Left eye hemorrhage Left periorbital contusion + laceration L subconjunctival hemorrhage, but EOMI, and vision intact - ENT Exam ENT Exam: Mucous Membranes Moist - Neck Exam Additional comments: Neg kernig and brudzinski signs - Respiratory Exam Respiratory Exam: Clear to PA & Lateral, NORMAL BREATHING PATTERN - Cardiovascular Exam Cardiovascular Exam: REGULAR RHYTHM, +S1, +S2 - GI/Abdominal Exam GI & Abdominal Exam: Normal Bowel Sounds, Unremarkable - Extremities Exam Extremities exam: full ROM, normal capillary refill, normal inspection - Back Exam Back exam: NORMAL INSPECTION - Neurological Exam Neurological exam: Alert, Oriented x3 - Psychiatric Exam Psychiatric exam: Anxious - Skin Skin Exam: Dry, Intact, Normal Color Discharge Plan - Discharge Medications Prescriptions: Divalproex [Depakote DR(*BID*)] 500 mg PO BID #60 tcp - Follow Up Plan Condition: FAIR Disposition: HOME/ ROUTINE Instructions: Altered Mental Status (GEN) Additional Instructions: Need to follow up with the following: Dr. Robertson, Dr. Naranjo Neurology Dr. King Dentist Opthomologist Maintain bed at 30 degrees to improve resolution of left eye. can use pillows to prop self up during sleep. Referrals: Jonathan King MD [Medical Doctor] - Stef Robertson MD [Family Provider] - Maximilian Naranjo APN [Staff Provider] -
== END 2017-07-04 17:35 | disposition home or self-care (01) | DRG 582 ==
LOC: H.ER 20:45 → H.ERHOLD 07-01 00:54 → H.ICU/CCU 07-01 05:42 → H.MEDSURG1 07-02 12:23
PROVIDERS: ADMIT Family Medicine Geriatric Medicine; ATTEND Family Medicine Geriatric Medicine
PROC: 3E0234Z Introduction of Serum, Toxoid and Vaccine into Muscle, Percutaneous Approach (ICD-10-PCS; principal; 2017-07-01)
DX: T43.011A Poisoning by tricyclic antidepressants, accidental (unintentional), initial encounter (principal); G92 Toxic encephalopathy; B20 Human immunodeficiency virus [HIV] disease; S02.32XA Fracture of orbital floor, left side, initial encounter for closed fracture; S02.40FA Zygomatic fracture, left side, initial encounter for closed fracture; F13.20 Sedative, hypnotic or anxiolytic dependence, uncomplicated; B19.20 Unspecified viral hepatitis C without hepatic coma; G62.9 Polyneuropathy, unspecified; I45.81 Long QT syndrome; J44.9 Chronic obstructive pulmonary disease, unspecified; H11.32 Conjunctival hemorrhage, left eye; S01.81XA Laceration without foreign body of other part of head, initial encounter; F32.9 Major depressive disorder, single episode, unspecified; F41.1 Generalized anxiety disorder; I10 Essential (primary) hypertension; R31.9 Hematuria, unspecified; S01.112A Laceration without foreign body of left eyelid and periocular area, initial encounter; W18.30XA Fall on same level, unspecified, initial encounter; Z53.29 Procedure and treatment not carried out because of patient's decision for other reasons; Z23 Encounter for immunization; Y92.009 Unspecified place in unspecified non-institutional (private) residence as the place of occurrence of the external cause; Z72.0 Tobacco use; Z79.891 Long term (current) use of opiate analgesic; Z87.01 Personal history of pneumonia (recurrent); Z88.0 Allergy status to penicillin; Z88.2 Allergy status to sulfonamides

== ENCOUNTER 2017-09-02 04:29 | Emergency (ER) | payer MEDICAID ==
[2017-09-02 04:29] VITALS: BMI 30.1
[2017-09-02 05:00] VITALS: BP 123/73; PULSE 76; RESP 17; TEMP 98; O2SAT 99
--- NOTE | 2017-09-02 07:11 | ED PDOC ---
- ECG O2 Sat by Pulse Oximetry: 99 (RA) Pulse Ox Interpretation: Normal Medical Decision Making Medical Decision Making: Time: 07:00 Patient signed out to me by Dr. Lawton, pending CT Lumbar Spine, CT Chest and CT Cervical Spine, and re-evaluation. Time: 07:32 CT Cervical Spine w/o Contrast FINDINGS: Vertebrae: Unremarkable. No acute fracture. Discs/spinal canal/neural foramina: Moderate degenerative disc disease at C6-C7. Degenerative changes within bilateral TM joints. No spinal canal stenosis. Soft tissues: Unremarkable. Lymph nodes: Bilateral cervical chain lymph nodes. Dental: Edentulous maxilla and mandible. Lung apices: There is spiculated nodule in the left upper lobe measuring 10 mm seen on image 160 series 2. Correlation with pulmonary history and clinical evaluation is recommended if a neoplastic process is clinically suspected. IMPRESSION: There is spiculated nodule in the left upper lobe measuring 10 mm seen on image 160 series 2. Correlation with pulmonary history and clinical evaluation is recommended if a neoplastic process is clinically suspected. Time: 07:39 CT Lumbar Spine w/o Contrast FINDINGS: Vertebrae: There is acute displaced fracture of right transverse process of L2, L3, L4 seen on image 37, 50 , 64 series 2. There is moderate vertebral body height loss at L1 with superior endplate Schmorl's node. Mild chronic vertebral body height loss at T12 Discs/spinal canal/neural foramina: L4-L5: Mild diffuse disc bulge with narrowing of left more than right subarticular recess and mild ligamentum flavum hypertrophy. Mild facet arthritis. T11-T12 T12-L1 vacuum disc. Soft tissues: Unremarkable. Vasculature: Pelvic phleboliths. Adrenals: Normal appearing adrenal glands. Kidneys and ureters: Right renal cysts. Bladder: Bladder distention. Correlation with patient's voiding status is recommended. Reproductive: Enlarged prostate gland. IMPRESSION: 1. There is acute displaced fracture of right transverse process of L2, L3, L4 seen on image 37, 50 , 64 series 2. Time: 07:54 CT Chest w/o Contrast FINDINGS: Artifacts: Limited due to motion and misregistration artifacts. Lungs: COPD. There is left upper lobe posterior spiculated nodule seen on image 25 series 3 which was seen on prior examination from September 22, 2015 and has not significantly changed in size and may represent sequela of infectious or inflammatory etiology. Correlation with patient's pulmonary history is recommended. Nonspecific pleural-parenchymal scarring in the anterior right upper lobe unchanged from prior examination. Pleural space: Unremarkable. No pneumothorax. No significant effusion. Heart: Unremarkable. No cardiomegaly. No significant pericardial effusion. Mediastinum: Nonspecific esophageal thickening likely due to under distention versus nonspecific esophagitis. Small hiatal hernia. Bones/joints: T11-T12 T12-L1 vacuum degenerative disc disease. Remote fracture deformity of 6 to ninth ribs. Soft tissues: Unremarkable. Vasculature: Unremarkable. No thoracic aortic aneurysm. Lymph nodes: Unremarkable. No enlarged lymph nodes. Gallbladder and bile ducts: Contracted gallbladder with gallbladder wall thickening. Adrenals: Normal right adrenal gland. The left adrenal gland is incompletely seen. Kidneys and ureters: Right renal cyst. IMPRESSION: No acute findings. Time: 08:16 Re-Evaluation Patient is sitting up with no distress. Repeatedly requesting extra strength oxycodone. Ambulating without difficulty. Upon provider evaluation patient is medically stable, and requires no further treatment in the ED at this time. Patient will be discharged. Counseling was provided and all questions were answered regarding diagnosis. There is agreement to discharge plan. Return if symptoms persist or worsen. Scribe Attestation: Documented by Tyrell Xavier, acting as a scribe for Pamela Montenegro MD Provider Scribe Attestation: All medical record entries made by the Scribe were at my direction and personally dictated by me. I have reviewed the chart and agree that the record accurately reflects my personal performance of the history, physical exam, medical decision making, and the department course for this patient. I have also personally directed, reviewed, and agree with the discharge instructions and disposition. Disposition - Clinical Impression Clinical Impression: Lumbar transverse process fracture, Multiple transverse process fractures - POA Present On Arrival: Falls Or Trauma - Disposition Referrals: [facility] [Outside] Stef Blankenship MD [Family Provider] - Disposition: Routine/Home Disposition Time: 08:18 Condition: STABLE Additional Instructions: USE TSLO BRACE ADVISED. Prescriptions: Naproxen [Naprosyn] 500 mg PO BID PRN #15 tablet PRN Reason: Pain, Moderate (4-7) oxyCODONE/Acetaminophen [Percocet 5/325 mg Tab] 1 tab PO Q6 PRN #10 tab PRN Reason: Pain, Moderate (4-7) Instructions: Low Back Pain in Adults Forms: [employer] (Irish)
--- NOTE | 2017-09-02 07:33 | CT ---
EXAM: CT Cervical Spine Without Intravenous Contrast CLINICAL HISTORY: 62 years old, male; Injury or trauma; Fall; Initial encounter; Blunt trauma TECHNIQUE: Axial computed tomography images of the cervical spine without intravenous contrast. All CT scans at this facility use one or more dose reduction techniques, viz.: automated exposure control; ma/kV adjustment per patient size (including targeted exams where dose is matched to indication; i.e. head); or iterative reconstruction technique. 794 images are submitted.Sagittal , axial and coronal MPR reformatted images are submitted in soft tissue and bone windows. COMPARISON: CR - CERVICAL SPINE AP LATERAL 2015-09-24 15:25 FINDINGS: Vertebrae: Unremarkable. No acute fracture. Discs/spinal canal/neural foramina: Moderate degenerative disc disease at C6-C7. Degenerative changes within bilateral TM joints. No spinal canal stenosis. Soft tissues: Unremarkable. Lymph nodes: Bilateral cervical chain lymph nodes. Dental: Edentulous maxilla and mandible. Lung apices: There is spiculated nodule in the left upper lobe measuring 10 mm seen on image 160 series 2. Correlation with pulmonary history and clinical evaluation is recommended if a neoplastic process is clinically suspected. IMPRESSION: There is spiculated nodule in the left upper lobe measuring 10 mm seen on image 160 series 2. Correlation with pulmonary history and clinical evaluation is recommended if a neoplastic process is clinically suspected.
--- NOTE | 2017-09-02 07:39 | CT ---
EXAM: CT Lumbar Spine Without Intravenous Contrast CLINICAL HISTORY: 62 years old, male; Injury or trauma; Fall; Initial encounter; Blunt trauma (contusions or hematomas) TECHNIQUE: Axial computed tomography images of the lumbar spine without intravenous contrast. All CT scans at this facility use one or more dose reduction techniques, viz.: automated exposure control; ma/kV adjustment per patient size (including targeted exams where dose is matched to indication; i.e. head); or iterative reconstruction technique. 571 images are submitted.Sagittal , axial and coronal MPR reformatted images are submitted in soft tissue and bone windows. COMPARISON: CR - LS SPINE AP/LAT 2015-09-24 15:42 FINDINGS: Vertebrae: There is acute displaced fracture of right transverse process of L2, L3, L4 seen on image 37, 50 , 64 series 2. There is moderate vertebral body height loss at L1 with superior endplate Schmorl's node. Mild chronic vertebral body height loss at T12 Discs/spinal canal/neural foramina: L4-L5: Mild diffuse disc bulge with narrowing of left more than right subarticular recess and mild ligamentum flavum hypertrophy. Mild facet arthritis. T11-T12 T12-L1 vacuum disc. Soft tissues: Unremarkable. Vasculature: Pelvic phleboliths. Adrenals: Normal appearing adrenal glands. Kidneys and ureters: Right renal cysts. Bladder: Bladder distention. Correlation with patient's voiding status is recommended. Reproductive: Enlarged prostate gland. IMPRESSION: 1. There is acute displaced fracture of right transverse process of L2, L3, L4 seen on image 37, 50 , 64 series 2.
--- NOTE | 2017-09-02 07:55 | CT ---
EXAM: CT Chest Without Intravenous Contrast CLINICAL HISTORY: 62 years old, male; Injury or trauma; Fall; Initial encounter; Blunt trauma (contusions or hematomas) TECHNIQUE: Axial computed tomography images of the chest without intravenous contrast. All CT scans at this facility use one or more dose reduction techniques, viz.: automated exposure control; ma/kV adjustment per patient size (including targeted exams where dose is matched to indication; i.e. head); or iterative reconstruction technique. 519 images are submitted. Coronal and sagittal reformatted images were created and reviewed. COMPARISON: CT - CHEST W/O CONTRAST 2015-09-22 23:03 FINDINGS: Artifacts: Limited due to motion and misregistration artifacts. Lungs: COPD. There is left upper lobe posterior spiculated nodule seen on image 25 series 3 which was seen on prior examination from September 22, 2015 and has not significantly changed in size and may represent sequela of infectious or inflammatory etiology. Correlation with patient's pulmonary history is recommended. Nonspecific pleural-parenchymal scarring in the anterior right upper lobe unchanged from prior examination. Pleural space: Unremarkable. No pneumothorax. No significant effusion. Heart: Unremarkable. No cardiomegaly. No significant pericardial effusion. Mediastinum: Nonspecific esophageal thickening likely due to under distention versus nonspecific esophagitis. Small hiatal hernia. Bones/joints: T11-T12 T12-L1 vacuum degenerative disc disease. Remote fracture deformity of 6 to ninth ribs. Soft tissues: Unremarkable. Vasculature: Unremarkable. No thoracic aortic aneurysm. Lymph nodes: Unremarkable. No enlarged lymph nodes. Gallbladder and bile ducts: Contracted gallbladder with gallbladder wall thickening. Adrenals: Normal right adrenal gland. The left adrenal gland is incompletely seen. Kidneys and ureters: Right renal cyst. IMPRESSION: No acute findings.
== END 2017-09-02 09:05 | disposition home or self-care (01) ==
LOC: H.ER 04:29
DX: S32.029A Unspecified fracture of second lumbar vertebra, initial encounter for closed fracture (principal); S32.039A Unspecified fracture of third lumbar vertebra, initial encounter for closed fracture; S32.049A Unspecified fracture of fourth lumbar vertebra, initial encounter for closed fracture; W18.2XXA Fall in (into) shower or empty bathtub, initial encounter; Y92.002 Bathroom of unspecified non-institutional (private) residence as the place of occurrence of the external cause

== ENCOUNTER 2017-09-07 13:29 | Inpatient (IN) | payer MEDICAID ==
[2017-09-07] MEDS ORDERED: Naloxone 0.4 mg/ml Inj (Adult) IVP ONE (13:51)
[2017-09-07] MEDS ORDERED: Sodium Chloride 0.9% 1,000 ML IV STA (14:07)
--- NOTE | 2017-09-07 14:45 | ED PDOC ---
HPI: Altered Mental Status Time Seen by Provider: 09/07/17 13:48 Chief Complaint (Nursing): Altered Mental Status Chief Complaint (Provider): lethargy History Per: Patient, EMS History/Exam Limitations: Clinical Condition Onset/Duration Of Symptoms: Unknown Onset Of Symptoms: Cannot Confirm Onset Current Symptoms Are (Timing): Still Present Description Of Symptoms: Not At Baseline Usual Baseline: Unknown Use Of Anticoag/Antiplatlets: Unknown Severity: Moderate Additional History Per: Prior Records Additional Complaint(s): 62yo male arrives via EMS somnolent, told EMS "my legs gave out" after taking 2 percocet. Denies heroin use, last used 10+ years ago. note- patient reg under new MR#, prior MR# [id number] reveals back injury last week, ED visit 09/02 revealing transverse process fractures Past Medical History Reviewed: Historical Data, Nursing Documentation, Vital Signs, Unable To Obtain Vital Signs: Last Vital Signs Temp 97.4 F L 09/07/17 13:58 Pulse 82 09/07/17 14:16 Resp 20 09/07/17 14:16 BP 141/106 H 09/07/17 14:16 Pulse Ox 90 L 09/07/17 13:54 - Medical History PMH: HIV - Surgical History Other surgeries: Unable to obtain - Family History Family History: States: Unknown Family Hx - Living Arrangements Living Arrangements: With Family - Social History Alcohol: None Drugs: Denies - Home Medications Home Medications: Ambulatory Orders Medication Instructions Recorded Alprazolam [Xanax] 2 mg PO Q12 09/07/17 Dolutegravir Sodium [Tivicay] 50 mg PO DAILY 09/07/17 Gabapentin [Neurontin] 800 mg PO Q12 09/07/17 Ibuprofen [Motrin Tab] 600 mg PO Q6 PRN #15 tab 09/07/17 Oxycodone HCl/Acetaminophen 1 tab PO Q12 PRN 09/07/17 [Percocet 7.5-325 mg Tablet] PARoxetine [Paxil] 30 mg PO DAILY 09/07/17 Rilpivirine HCl [Edurant] 25 mg PO DAILY 09/07/17 Ritonavir [Norvir] 100 mg PO DAILY 09/07/17 carBAMazepine [Tegretol] 200 mg PO Q12 09/07/17 - Allergies Allergies/Adverse Reactions: Allergies Allergy/AdvReac Type Severity Reaction Status Date / Time sulfamethoxazole Allergy RASH Verified 09/07/17 14:58 [From Bactrim] trimethoprim [From Bactrim] Allergy RASH Verified 09/07/17 14:58 Review of Systems Review Of Systems: ROS cannot be obtained secondary to pt's inabilty to answer questions. (somnolent) Physical Exam - Reviewed Nursing Documentation Reviewed: Yes Vital Signs Reviewed: Yes - Physical Exam Appears: Positive for: Non-toxic (somnolent with diminished resp effort), No Acute Distress Head Exam: Positive for: ATRAUMATIC, NORMAL INSPECTION, NORMOCEPHALIC Skin: Positive for: Normal Color, Warm, DRY Eye Exam: Positive for: PERRL (sluggish 2mm) ENT: Positive for: Normal ENT Inspection Neck: Positive for: Normal, Painless ROM Cardiovascular/Chest: Positive for: Regular Rate, Rhythm Respiratory: Positive for: Rhonchi, Other (periods apnea). Negative for: Respiratory Distress Pulses-Radial (L): 2+ Pulses-Radial (R): 2+ Gastrointestinal/Abdominal: Positive for: Bowel Sounds, Soft. Negative for: Tenderness Back: Positive for: Normal Inspection Extremity: Positive for: Normal ROM, Other (prior ?skin popping scars). Negative for: Tenderness, Swelling Neurologic/Psych: Positive for: Alert, Oriented. Negative for: Motor/Sensory Deficits, Facial Droop - Laboratory Results Result Diagrams: 09/07/17 14:49 09/07/17 14:49 - ECG ECG: Positive for: Interpreted By Me ECG Rhythm: Positive for: Sinus Rhythm, Right Bundle Branch Block, Nonspecific Changes O2 Sat by Pulse Oximetry: 90 Pulse Ox Interpretation: Abnormal (hypoxia on RA) - Radiology X-Ray: Read By Radiologist X-Ray Interpretation: Infiltrates - Critical Care Total Time (In Min): 45 Comments: pt required immediate bedside attention due to AMS/apnea Medical Decision Making Medical Decision Making: Suspicious for opioid intoxication difficult peripheral IV access. supplemental O2 provided, maintaining sats and resp drive bloods obtained via a-stick L radial artery after nancy test. traffic monitor specialist maintained. IV established, remained somnolent, narcan 0.4mg given IV with return to wakefullness. [employer] database reveals percocet 28pills last Rx 08/22/17 CXR reveals possible infiltrate per radiologist labs reviewed, chem reveals evidence dehydration mild leukocytosis Awaiting Utox patient very poor historian, mother arrived stating has frequent falls at home, not taking medications with poor insight Admit FP service for stabilization. Disposition - Clinical Impression Clinical Impression: Overdose opiate, Dehydration, Pneumonia - Patient ED Disposition Is Patient to be Admitted: Yes Counseled Patient/Family Regarding: Studies Performed, Diagnosis - Disposition Disposition Time: 17:00 Condition: STABLE
[2017-09-07 14:52] LABS: BASO # 0.1 K/uL (0.0-0.2); BASO % 0.5 % (0.0-2.0); EOS # 0.1 K/uL (0.0-0.7); EOS % 1.1 % (0.0-4.0); HEMOGLOBIN 14.1 g/dL (12.0-18.0); LYMPH % 25.9 % (20.0-40.0); MEAN CELL VOLUME 86.7 fl (80.0-94.0); MEAN CORPUSCULAR HEMOGLOBIN 28.5 pg (27.0-31.0); MEAN CORPUSCULAR HGB CONC 32.9 g/dL (33.0-37.0); MONO # 0.7 K/uL (0.0-0.8); MONO % 5.7 % (0.0-10.0); NEUT # 7.7 K/uL (1.8-7.0); NEUT % 66.8 % (50.0-75.0); NRBC % 0.1 % (0.0-0.0); RBC 4.95 Mil/uL (4.40-5.90); WHITE BLOOD COUNT 11.5 K/uL (4.8-10.8)
[2017-09-07 15:09] LABS: ALB/GLOB RATIO 0.9 (1.0-2.1); ALBUMIN 4.1 g/dL (3.5-5.0); ALT/SGPT 48 U/L (21-72); AST/SGOT 44 U/L (17-59); BLOOD UREA NITROGEN 23 mg/dl (9-20); CALCIUM 9.3 mg/dL (8.4-10.2); GFR AFRICAN-AMERICAN 50; GFR NON-AFRICAN AMERICAN 41
--- NOTE | 2017-09-07 15:54 | RAD ---
HISTORY: SOB COMPARISON: No prior. FINDINGS: LUNGS: Patchy opacity at left base. Possible subsegmental atelectasis. Followup advised. No other infiltrate elsewhere. PLEURA: No significant pleural effusion identified, no pneumothorax apparent. CARDIOVASCULAR: Normal. OSSEOUS STRUCTURES: No significant abnormalities. VISUALIZED UPPER ABDOMEN: Normal. OTHER FINDINGS: None. IMPRESSION: Patchy opacity at left base. Infiltrate versus subsegmental atelectasis. Otherwise unremarkable examination
[2017-09-07] MEDS ORDERED: levoFLOXacin 750 MG TAB PO STA (18:09)
[2017-09-07] MEDS ORDERED: levoFLOXacin 750 mg in D5W 150 ML BAG IVPB STA (18:13)
[2017-09-07] MEDS ORDERED: levoFLOXacin 750 mg in D5W 750 MG/150 ML BAG IVPB STA (18:33)
[2017-09-07] MEDS ORDERED: Sodium Chloride 0.9% 1,000 ML IV SCH (22:15)
--- NOTE | 2017-09-07 22:20 | CP.PCM.HP ---
History of Present Illness - History of Present Illness History of Present Illness: 62 year old male with PMH drug abuse, HIV: last CD4 : 368, CD4%10 (07/04/17), Hep C presents after his 'legs just gave out'. He states he took two Percocet, then went for a walk when he found himself fallen over small fence. Someone helped him up and he was subsequently brought to the ED. He denies any LOC or head trauma. Denies any other drug use. Of note patient was seen in ED earlier this week s/p fall, found to have some vertebral fractures and states this is why he needs percocet. The rest of HPI was obtained from ED physician and ED nurse: Patient brought in and was lethargic with respiratory depression. He was given a dose of Narcan after which he subsequently woke up. ROS: 12 point review of systems negative, denied pain in ED. PMD: Dr. Blankenship, Mental Health: Maximilian Naranjo PMHx: HIV, HTN, Anxiety, Hep C, pulmonary nodule-ROXY stable. Allergies: TMP-SMX Meds: Tivicay 50 mg daily, Norvir 100 mg daily, Prezista 800 mg daily, Edurant 25 mg daily, Percocet 5/325 PRN, Gabapentin 800 mg BID, Dapsone 100mg PO daily, Family hx: noncontributory Sugrical hx: tonsillectomy 1978, b/l cataracts 2000 Social hx: neg ETOH, rect drugs. 1 pack per day smoker Code status: full code Patient has another MR: [id number] Present on Admission - Present on Admission Any Indicators Present on Admission: No Past Patient History - Past Medical History & Family History Past Medical History?: Yes Past Family History: Reviewed and not pertinent - Past Social History Smoking Status: Heavy Smoker > 10 Cigarettes Daily Alcohol: None Drugs: Denies, Other (history of heroin abuse, 'quit 15 years ago') Home Situation {Lives}: With Family - CARDIAC Other/Comment: HIV - HEMATOLOGICAL/ONCOLOGICAL Hx Human Immunodeficiency Virus (HIV): Yes - PSYCHIATRIC Hx Substance Use: Yes - SURGICAL HISTORY Hx Tonsillectomy: Yes Meds Home Medications: Home Medication List Medication Instructions Recorded Confirmed Type Ibuprofen [Motrin Tab] 600 mg PO Q6 PRN #15 tab 09/07/17 Rx Allergies/Adverse Reactions: Allergies Allergy/AdvReac Type Severity Reaction Status Date / Time sulfamethoxazole Allergy RASH Verified 09/07/17 14:58 [From Bactrim] trimethoprim [From Bactrim] Allergy RASH Verified 09/07/17 14:58 Physical Exam - Constitutional Appears: Agitated - Head Exam Head Exam: ATRAUMATIC, NORMAL INSPECTION, NORMOCEPHALIC - Eye Exam Eye Exam: absent: PERRL Pupil Exam: Miosis (bilateral). absent: NORMAL ACCOMODATION, PERRL - ENT Exam ENT Exam: Mucous Membranes Dry - Neck Exam Neck exam: Positive for: Normal Inspection - Respiratory Exam Respiratory Exam: Decreased Breath Sounds, NORMAL BREATHING PATTERN. absent: Rales, Rhonchi, Wheezes, Respiratory Distress - Cardiovascular Exam Cardiovascular Exam: REGULAR RHYTHM, +S1, +S2 - GI/Abdominal Exam GI & Abdominal Exam: Soft. absent: Distended, Guarding, Tenderness - Extremities Exam Extremities exam: Positive for: normal inspection. Negative for: pedal edema, tenderness - Skin Skin Exam: Dry, Intact, Normal Color Results - Vital Signs Recent Vital Signs: Last Vital Signs Temp 98.1 F 09/07/17 20:43 Pulse 78 09/07/17 20:43 Resp 20 09/07/17 20:43 BP 92/55 L 09/07/17 20:43 Pulse Ox 93 L 09/07/17 20:43 - Labs Result Diagrams: 09/07/17 14:49 09/07/17 14:49 Labs: Laboratory Results - last 24 hr 09/07/17 09/07/17 09/07/17 13:45 14:49 14:49 WBC 11.5 H RBC 4.95 Hgb 14.1 Hct 43.0 MCV 86.7 MCH 28.5 MCHC 32.9 L RDW 15.0 H Plt Count 235 MPV 9.0 Neut % (Auto) 66.8 Lymph % (Auto) 25.9 Calloway % (Auto) 5.7 Eos % (Auto) 1.1 Baso % (Auto) 0.5 Neut # (Auto) 7.7 H Lymph # (Auto) 3.0 Calloway # (Auto) 0.7 Eos # (Auto) 0.1 Baso # (Auto) 0.1 Sodium 147 Potassium 4.1 Chloride 105 Carbon Dioxide 20 L Anion Gap 26 H BUN 23 H Creatinine 1.7 H Est GFR ( Amer) 50 Est GFR (Non-Af Amer) 41 POC Glucose (mg/dL) 134 H Random Glucose 112 H Calcium 9.3 Total Bilirubin 0.7 AST 44 ALT 48 Alkaline Phosphatase 90 Troponin I < 0.0120 Total Protein 8.5 H Albumin 4.1 Globulin 4.4 H Albumin/Globulin Ratio 0.9 L Carbamazepine Alcohol, Quantitative < 10 09/07/17 21:00 WBC RBC Hgb Hct MCV MCH MCHC RDW Plt Count MPV Neut % (Auto) Lymph % (Auto) Calloway % (Auto) Eos % (Auto) Baso % (Auto) Neut # (Auto) Lymph # (Auto) Calloway # (Auto) Eos # (Auto) Baso # (Auto) Sodium Potassium Chloride Carbon Dioxide Anion Gap BUN Creatinine Est GFR ( Amer) Est GFR (Non-Af Amer) POC Glucose (mg/dL) Random Glucose Calcium Total Bilirubin AST ALT Alkaline Phosphatase Troponin I Total Protein Albumin Globulin Albumin/Globulin Ratio Carbamazepine < 3.0 L Alcohol, Quantitative Assessment & Plan (1) Overdose opiate Assessment and Plan: 62 year old male admitted for opiate overdose, dehydration, possible pneumonia. Opiate overdose: -vitals q4 -s/p 1 dose of narcan -awake, no signs of withdrawal, monitor -urine drug screen pending ?Pneumonia, given hx of lethargy, aspiration cannot be ruled out -given one dose of levaquin in ED -CXR reviewed, reported with patchy opacity at left base. -clinical exam unremarkable -no leukocytosis or fevers. -blood culture ordered. Status: Acute (2) ARTHUR (acute kidney injury) Assessment and Plan: Unkown etiology, last labs in Jun 2017 : BUN/Cr: 19/0.8. GFR>60 - possibly secondary to dehydration vs nephrotoxic substance/medication -IVF @200cc -Repeat BMP in AM -Tylenol for pain, no NSAIDS Status: Acute (3) HIV infection Assessment and Plan: Last CD4: 368, CD4% cells: 10% Continue home medications. Status: Chronic (4) Anxiety Assessment and Plan: resume xanax from home medications as needed. Status: Chronic (5) Neuropathy Assessment and Plan: Gabapentin as ordered -patient states he takes percocet for this. Status: Chronic (6) DVT prophylaxis Assessment and Plan: scds for now Status: Acute
[2017-09-08 01:56] VITALS: BP 106/70; PULSE 79; RESP 18; TEMP 97.9; O2SAT 95
--- NOTE | 2017-09-08 02:00 | CP.PCM.PCO ---
Against Medical Advice - AMA Patient Left Against Medical Advice: The patient declines admission to the hospital and wishes to leave the Telemetry. This action is against my medical advice. This decision was made with informed refusal. The patient was told that admission to the hospital is necessary. Explanation of the reasons why were discussed. The risks of leaving were explained to the patient and include, but are not limited to, worsening of known or currently unknown conditions, permanent disability and from undiagnosed or untreated conditions. The patient has the capacity to make this informed decision and understands my explanation of the current medical problem and risks of leaving. The patient voluntarily accepts these risks and signed an AMA form documenting our conversation. The patient was given the opportunity to ask questions and reconsider. The patient was encouraged to return to the Emergency Department at any time for further care. 09/08/17 01:58 Formed filled out and signed. Jacquelyn Shearer PGY2
--- NOTE | 2017-09-08 15:02 | CARD ---
APPROVED REPORT EKG Measurement Heart [id number] <Conclusion> Normal sinus rhythm Right bundle branch block Abnormal ECG
== END 2017-09-08 02:00 | disposition left against medical advice (07) | DRG 582 ==
LOC: H.ER 13:29 → MERGE 18:13 → H.ERHOLD 18:13 → H.TEL 09-08 01:14
PROVIDERS: ADMIT Family Medicine; ATTEND Family Medicine
DX: T40.2X1A Poisoning by other opioids, accidental (unintentional), initial encounter (principal); N17.9 Acute kidney failure, unspecified; E86.0 Dehydration; F11.10 Opioid abuse, uncomplicated; B19.20 Unspecified viral hepatitis C without hepatic coma; Z21 Asymptomatic human immunodeficiency virus [HIV] infection status; I10 Essential (primary) hypertension; G62.9 Polyneuropathy, unspecified; F41.9 Anxiety disorder, unspecified; F17.210 Nicotine dependence, cigarettes, uncomplicated; Y92.9 Unspecified place or not applicable

== ENCOUNTER 2017-10-09 15:14 | Emergency (ER) | payer MEDICAID ==
[2017-10-09 15:14] VITALS: BMI 30.1
[2017-10-09 15:26] VITALS: BP 150/100; PULSE 78; RESP 18; TEMP 98.2; O2SAT 99
--- NOTE | 2017-10-09 16:05 | ED PDOC ---
Upper Extremity Pain/Injury Time Seen by Provider: 10/09/17 15:33 Chief Complaint (Nursing): Upper Extremity Problem/Injury Chief Complaint (Provider): Right shoulder pain History Per: Patient History/Exam Limitations: no limitations Onset/Duration Of Symptoms: Days (months) Quality: "Pain" Additional Complaint(s): Dallas Silver is a 62 year old male, with a past medical history of HIV, peripheral neuropathy and HTN, who presents to the emergency department complaining of right shoulder pain onset for months. Patient reports he was seen in the ED for shoulder pain s/p fall months ago. Patient states he fell forward with arms extended. He is currently taking Vicodin for his neuropathy, last dose was this morning. He denies any new trauma or injury. No further medical complaints. PMD: None provided. Past Medical History Reviewed: Historical Data, Nursing Documentation, Vital Signs Vital Signs: Last Vital Signs Temp 98.2 F 10/09/17 15:23 Pulse 78 10/09/17 15:23 Resp 18 10/09/17 15:23 BP 150/100 H 10/09/17 15:23 Pulse Ox 99 10/09/17 15:23 - Medical History PMH: Anxiety, COPD, Depression, HIV, HTN, Pneumonia Denies: Chronic Kidney Disease - Surgical History Surgical History: Tonsillectomy - Family History Family History: States: Unknown Family Hx - Social History Current smoker - smoking cessation education provided: Yes (Heavy smoker >10 cigarettes daily) Alcohol: None Drugs: Prescription medications - Immunization History Hx Tetanus Toxoid Vaccination: No Hx Influenza Vaccination: No Hx Pneumococcal Vaccination: No - Home Medications Home Medications: Ambulatory Orders Medication Instructions Recorded Darunavir [Prezista] 800 mg PO DAILY 08/10/14 Ritonavir [Norvir] 100 mg PO DAILY 08/10/14 Dapsone 100 mg PO DAILY 09/22/15 Dolutegravir Sodium [Tivicay] 50 mg PO DAILY 09/22/15 PARoxetine [Paxil] 30 mg PO DAILY 09/22/15 Rilpivirine HCl [Edurant] 25 mg PO DAILY 09/22/15 Divalproex [Depakote DR(*BID*)] 500 mg PO BID #60 tcp 07/04/17 clonazePAM [Klonopin] 0.5 mg PO QID tab 07/04/17 Naproxen [Naprosyn] 500 mg PO BID PRN #15 tablet 09/02/17 oxyCODONE/Acetaminophen [Percocet 1 tab PO Q6 PRN #10 tab 09/02/17 5/325 mg Tab] Alprazolam [Xanax] 2 mg PO Q12 09/07/17 Dolutegravir Sodium [Tivicay] 50 mg PO DAILY 09/07/17 Gabapentin [Neurontin] 800 mg PO Q12 09/07/17 Ibuprofen [Motrin Tab] 600 mg PO Q6 PRN #15 tab 09/07/17 Oxycodone HCl/Acetaminophen 1 tab PO Q12 PRN 09/07/17 [Percocet 7.5-325 mg Tablet] PARoxetine [Paxil] 30 mg PO DAILY 09/07/17 Rilpivirine HCl [Edurant] 25 mg PO DAILY 09/07/17 Ritonavir [Norvir] 100 mg PO DAILY 09/07/17 carBAMazepine [Tegretol] 200 mg PO Q12 09/07/17 - Allergies Allergies/Adverse Reactions: Allergies Allergy/AdvReac Type Severity Reaction Status Date / Time Penicillins Allergy REDNESS Verified 09/02/17 05:00 sulfamethoxazole Allergy FATIGUE Verified 09/02/17 05:00 [From Bactrim] trimethoprim [From Bactrim] Allergy FATIGUE Verified 09/02/17 05:00 Review of Systems ROS Statement: Except As Marked, All Systems Reviewed And Found Negative Musculoskeletal: Positive for: Shoulder Pain (right) Physical Exam - Reviewed Nursing Documentation Reviewed: Yes Vital Signs Reviewed: Yes - Physical Exam Appears: Positive for: Non-toxic, No Acute Distress Head Exam: Positive for: ATRAUMATIC, NORMAL INSPECTION, NORMOCEPHALIC Skin: Positive for: Normal Color, Warm, Dry Eye Exam: Positive for: Normal appearance Neck: Positive for: Painless ROM Cardiovascular/Chest: Positive for: Regular Rate, Rhythm. Negative for: Murmur Respiratory: Positive for: Normal Breath Sounds. Negative for: Wheezing Extremity: Negative for: Normal ROM (Decreased abduction to right shoulder), Deformity (upper extremities), Swelling (upper extremities) Neurologic/Psych: Positive for: Alert, Oriented. Negative for: Motor/Sensory Deficits - ECG O2 Sat by Pulse Oximetry: 99 (RA) Pulse Ox Interpretation: Normal Medical Decision Making Medical Decision Making: Initial impression: Shoulder pain Initial Plan: --Toradol 30 mg IM --Shoulder right [RAD] --Reevaluation 16:31 Shoulder X-Ray FINDINGS: BONES: Displaced greater tuberosity fracture in association with anterior dislocation at the glenohumeral articulation. No evidence of glenoid fracture. JOINTS: Acromioclavicular articulation appears unremarkable. SOFT TISSUES: Normal. OTHER FINDINGS: None. IMPRESSION: Anterior dislocation with comminuted displaced greater tuberosity fracture. 17:[address] FINDINGS: Avulsion of the greater tuberosity. Comminuted fracture right humeral head. Anterior inferior dislocation of the humeral head relative to the glenoid. Considerable soft tissue swelling and hemarthrosis identified. Preservation of the acromioclavicular joint. No scapular abnormalities No identifiable rib fractures. No visible abnormalities with respect to pulmonary parenchyma right lung. IMPRESSION: Comminuted fracture dislocation right shoulder. Two large avulsed fracture fragments from the greater tuberosity. Anterior inferior dislocation of the remainder of the humeral head relative to the glenoid with hemarthrosis and hematoma. Discussed with Dr. Ashford. Would like CT. Discussed CT with Dr. Ashford. Pt placed in shoulder sling and information given. ~ Scribe Attestation: Documented by Jony Spring, acting as a scribe for Marnie Umana PA-C. Provider Scribe Attestation: All medical record entries made by the Scribe were at my direction and personally dictated by me. I have reviewed the chart and agree that the record accurately reflects my personal performance of the history, physical exam, medical decision making, and the department course for this patient. I have also personally directed, reviewed, and agree with the discharge instructions and disposition. Disposition - Clinical Impression Clinical Impression: Chronic dislocation of shoulder, Shoulder fracture - Patient ED Disposition Is Patient to be Admitted: No Counseled Patient/Family Regarding: Diagnosis, Need For Followup - Disposition Referrals: Darcy Perez MD [Staff Provider] - Disposition: Routine/Home Disposition Time: 18:47 Condition: STABLE Additional Instructions: Please follow-up with Dr. Perez. Instructions: Shoulder Dislocation Forms: [facility] (Nauruan)
--- NOTE | 2017-10-09 16:33 | RAD ---
PROCEDURE: Radiographs of the Right Shoulder HISTORY: pain after a fall COMPARISON: No prior. FINDINGS: BONES: Displaced greater tuberosity fracture in association with anterior dislocation at the glenohumeral articulation. No evidence of glenoid fracture. JOINTS: Acromioclavicular articulation appears unremarkable. SOFT TISSUES: Normal. OTHER FINDINGS: None. IMPRESSION: Anterior dislocation with comminuted displaced greater tuberosity fracture.
--- NOTE | 2017-10-09 17:41 | CT ---
PROCEDURE: CT right upper extremity HISTORY: right shoulder pain, abnormal XR COMPARISON: October 09, 2017. Right shoulder radiographs TECHNIQUE: 2.5 mm axial acquisition and display. Coronal and sagittal reconstructions. Dose report (mGy-cm): 388.98 3D volume rendering FINDINGS: Avulsion of the greater tuberosity. Comminuted fracture right humeral head. Anterior inferior dislocation of the humeral head relative to the glenoid. Considerable soft tissue swelling and hemarthrosis identified. Preservation of the acromioclavicular joint. No scapular abnormalities No identifiable rib fractures. No visible abnormalities with respect to pulmonary parenchyma right lung. IMPRESSION: Comminuted fracture dislocation right shoulder. Two large avulsed fracture fragments from the greater tuberosity. Anterior inferior dislocation of the remainder of the humeral head relative to the glenoid with hemarthrosis and hematoma.
== END 2017-10-09 18:56 | disposition home or self-care (01) ==
LOC: H.ER 15:14
DX: S42.251A Displaced fracture of greater tuberosity of right humerus, initial encounter for closed fracture (principal); W19.XXXA Unspecified fall, initial encounter; Y92.89 Other specified places as the place of occurrence of the external cause; F32.9 Major depressive disorder, single episode, unspecified; F41.9 Anxiety disorder, unspecified; G62.9 Polyneuropathy, unspecified; I10 Essential (primary) hypertension; J44.9 Chronic obstructive pulmonary disease, unspecified; Z21 Asymptomatic human immunodeficiency virus [HIV] infection status; Z88.0 Allergy status to penicillin
CPT/HCPCS: 73030; 73200; 96372; 99283; J1885

== ENCOUNTER 2017-10-27 04:50 | Inpatient (IN) | payer MEDICAID ==
[2017-10-27] MEDS ORDERED: Oxycodone/Acetaminophen 5/325 mg Tab PO STA (06:03)
[2017-10-27 06:37] LABS: BASO # 0.1 K/uL (0.0-0.2); BASO % 1.1 % (0.0-2.0); EOS # 0.1 K/uL (0.0-0.7); HEMOGLOBIN 12.9 g/dL (12.0-18.0); LYMPH # 2.8 K/uL (1.0-4.3); LYMPH % 35.9 % (20.0-40.0); MEAN CELL VOLUME 87.2 fl (80.0-94.0); MEAN CORPUSCULAR HEMOGLOBIN 29.3 pg (27.0-31.0); MEAN CORPUSCULAR HGB CONC 33.6 g/dL (33.0-37.0); MEAN PLATELET VOLUME 9.6 fl (7.2-11.7); MONO # 0.5 K/uL (0.0-0.8); MONO % 7.1 % (0.0-10.0); NEUT # 4.2 K/uL (1.8-7.0); NEUT % 54.9 % (50.0-75.0); NRBC % 0.1 % (0.0-0.0); RBC 4.41 Mil/uL (4.40-5.90); RED CELL DISTRIBUTION WIDTH 15.6 % (11.5-14.5); WHITE BLOOD COUNT 7.7 K/uL (4.8-10.8)
[2017-10-27] MEDS ORDERED: Oxycodone/Acetaminophen 5/325 mg Tab ONE (06:41)
[2017-10-27 06:49] LABS: CALCIUM 9.2 mg/dL (8.4-10.2); GFR AFRICAN-AMERICAN > 60; GFR NON-AFRICAN AMERICAN > 60
[2017-10-27 06:56] LABS: ALB/GLOB RATIO 0.7 (1.0-2.1); ALBUMIN 3.4 g/dL (3.5-5.0); ALT/SGPT 51 U/L (21-72); AST/SGOT 71 U/L (17-59); BLOOD UREA NITROGEN 13 mg/dl (9-20)
--- NOTE | 2017-10-27 07:07 | ED PDOC ---
Upper Extremity Pain/Injury Time Seen by Provider: 10/27/17 05:37 Chief Complaint (Nursing): Upper Extremity Problem/Injury Chief Complaint (Provider): Upper Extremity Problem/Injury History Per: Patient, Family (Mother) History/Exam Limitations: no limitations Onset/Duration Of Symptoms: Days (x 3) Current Symptoms Are (Timing): Still Present Additional Complaint(s): 62-year-old male presents today with chronic right shoulder pain. Patient is accompanied by mother. According to mother, patient is feeling weak and unable to walk for the last 3 days. Patient reports constant right shoulder pain. Patient has not taken pain medications because he ran out. Reports taking Tegretol for seizures, but did not help for pain. Reports fracture and dislocation of the right shoulder. Was supposed to follow up with orthopedics. Patient is unable to find orthopedic doctor to do surgery. Denies headache, fever, chest pain, abdominal pain. Mother reports patient frequently falls. PMD: Dr. Blankenship Past Medical History Reviewed: Historical Data, Nursing Documentation, Vital Signs Vital Signs: Last Vital Signs Temp 97.6 F 10/27/17 05:01 Pulse 71 10/27/17 05:01 Resp 18 10/27/17 05:01 BP 150/97 H 10/27/17 05:01 Pulse Ox 99 10/27/17 05:01 - Medical History PMH: Anxiety, COPD, Depression, HIV, HTN, Pneumonia Denies: Chronic Kidney Disease - Surgical History Surgical History: Tonsillectomy - Family History Family History: States: Unknown Family Hx - Immunization History Hx Tetanus Toxoid Vaccination: No Hx Influenza Vaccination: No Hx Pneumococcal Vaccination: No - Home Medications Home Medications: Ambulatory Orders Medication Instructions Recorded Darunavir [Prezista] 800 mg PO DAILY 08/10/14 Dolutegravir Sodium [Tivicay] 50 mg PO DAILY 09/22/15 Divalproex [Depakote DR(*BID*)] 500 mg PO BID #60 tcp 07/04/17 oxyCODONE/Acetaminophen [Percocet 1 tab PO Q6 PRN #10 tab 09/02/17 5/325 mg Tab] Alprazolam [Xanax] 2 mg PO Q12 09/07/17 Gabapentin [Neurontin] 800 mg PO Q12 09/07/17 PARoxetine [Paxil] 30 mg PO DAILY 09/07/17 Rilpivirine HCl [Edurant] 25 mg PO DAILY 09/07/17 Ritonavir [Norvir] 100 mg PO DAILY 09/07/17 carBAMazepine [Tegretol] 200 mg PO Q12 09/07/17 - Allergies Allergies/Adverse Reactions: Allergies Allergy/AdvReac Type Severity Reaction Status Date / Time Penicillins Allergy REDNESS Verified 09/02/17 05:00 sulfamethoxazole Allergy FATIGUE Verified 09/02/17 05:00 [From Bactrim] trimethoprim [From Bactrim] Allergy FATIGUE Verified 09/02/17 05:00 Review of Systems ROS Statement: Except As Marked, All Systems Reviewed And Found Negative Constitutional: Positive for: Weakness. Negative for: Fever Cardiovascular: Negative for: Chest Pain Gastrointestinal: Negative for: Abdominal Pain Musculoskeletal: Positive for: Shoulder Pain (Right) Neurological: Negative for: Headache Physical Exam - Reviewed Nursing Documentation Reviewed: Yes Vital Signs Reviewed: Yes - Physical Exam Appears: Positive for: Non-toxic Head Exam: Positive for: ATRAUMATIC, NORMAL INSPECTION, NORMOCEPHALIC Skin: Positive for: Normal Color, Warm, Dry Eye Exam: Positive for: Normal appearance, EOMI, PERRL ENT: Positive for: Normal ENT Inspection Neck: Positive for: Normal Cardiovascular/Chest: Positive for: Regular Rate, Rhythm Respiratory: Positive for: Normal Breath Sounds. Negative for: Respiratory Distress Gastrointestinal/Abdominal: Positive for: Normal Exam Back: Positive for: Normal Inspection Extremity: Positive for: Deformity (of the right shoulder), Swelling (of the right shoulder). Negative for: Normal ROM ((+): Limited ROM) Neurologic/Psych: Positive for: Alert, Oriented - Laboratory Results Result Diagrams: 10/27/17 06:30 10/27/17 06:30 - ECG O2 Sat by Pulse Oximetry: 99 (RA) Pulse Ox Interpretation: Normal Medical Decision Making Medical Decision Making: Time: 06:03 Impression(s): Chronic right shoulder pain, Generalized weakness, Altered Mental Status Differentials include, but not limited to: Pain Control, Substance Abuse, Dehydration, Head Injury Plan: - CT Head w/o Contrast - Alcohol Serum - CMP - Drug Screen, Urine - ED Urine Dipstick - CBC (with differentials) - Percocet 5/325 mg Tab Patient to be signed out to Dr. Quinonez @ 07:00, pending CT Head and final disposition. Scribe Attestation: Documented by Tyrell Xavier, acting as a scribe for Moreno Kulkarni MD. Provider Scribe Attestation: All medical record entries made by the Scribe were at my direction and personally dictated by me. I have reviewed the chart and agree that the record accurately reflects my personal performance of the history, physical exam, medical decision making, and the department course for this patient. I have also personally directed, reviewed, and agree with the discharge instructions and disposition. Disposition - Clinical Impression Clinical Impression: HIV (human immunodeficiency virus infection), Chronic shoulder pain, Generalized muscle weakness, Altered mental status - Patient ED Disposition Is Patient to be Admitted: Transfer of Care Counseled Patient/Family Regarding: Studies Performed, Diagnosis - Disposition Disposition: Transfer of Care Disposition Time: 07:00 Condition: FAIR Patient Signed Over To: Marie Quinonez
--- NOTE | 2017-10-27 07:36 | ED PDOC ---
- Laboratory Results Result Diagrams: 10/27/17 06:30 10/27/17 06:30 - ECG O2 Sat by Pulse Oximetry: 99 (RA) Medical Decision Making Medical Decision Making: Time: 0700 -Patient signed to me by Dr. Kulkarni, pending Head CT and disposition. Scribe Attestation: Documented by Christopher Fields, acting as a scribe for Dr. Ke MD. Provider Scribe Attestation: All medical record entries made by the Scribe were at my direction and personally dictated by me. I have reviewed the chart and agree that the record accurately reflects my personal performance of the history, physical exam, medical decision making, and the department course for this patient. I have also personally directed, reviewed, and agree with the discharge instructions and disposition. CT head is without acute findings. Patient with chronic disability. His mother with whom he lives with cannot take car of him. Will admit. Disposition Doctor Will See Patient In The: Hospital - Clinical Impression Clinical Impression: HIV (human immunodeficiency virus infection), Chronic shoulder pain, Generalized muscle weakness - POA Present On Arrival: None - Disposition Disposition: Admitted as In-Patient Disposition Time: 08:53 Instructions: Weakness (ED) Forms: [facility] ([place]gas[place])
[2017-10-27 08:09] LABS: OPIATES, UR NEGATIVE (NEGATIVE)
[2017-10-27 08:13] LABS: BARBITURATES, UR NEGATIVE (NEGATIVE); BENZODIAZEPINES, UR POSITIVE (NEGATIVE); PHENCYCLIDINE, UR NEGATIVE (NEGATIVE)
--- NOTE | 2017-10-27 10:23 | CT ---
PROCEDURE: CT HEAD WITHOUT CONTRAST. HISTORY: ams COMPARISON: CT head dated 07/02/2017. TECHNIQUE: Axial computed tomography images were obtained through the head/brain without intravenous contrast. Radiation dose: Total exam DLP = 930.5 mGy-cm. This CT exam was performed using one or more of the following dose reduction techniques: Automated exposure control, adjustment of the mA and/or kV according to patient size, and/or use of iterative reconstruction technique. FINDINGS: HEMORRHAGE: No intracranial hemorrhage. BRAIN: No mass effect or edema. Atrophy. Chronic microvascular ischemic changes. Right basal ganglia infarction redemonstrated. VENTRICLES: Unremarkable. No hydrocephalus. CALVARIUM: Unremarkable. PARANASAL SINUSES: Unremarkable as visualized. No significant inflammatory changes. MASTOID AIR CELLS: Unremarkable as visualized. No inflammatory changes. OTHER FINDINGS: None. IMPRESSION: Normal CT of the Head.
--- NOTE | 2017-10-27 11:42 | CP.PCM.HP ---
History of Present Illness - History of Present Illness History of Present Illness: 62 year old male with PMH drug abuse, HIV: last CD4 : 368, CD4%10 (07/04/17), Hep C and chronic right shoulder pain presents to the hospital for persistent chronic right shoulder pain and fall at home last night. Pt reports he fell from bed last night and landed on his back. It was unwitnessed fall and denies any LOC or head injury. Pt also reports feeling generalized weakness. Pt lives with his elderly mother and mother is unable to take care of patient. Denies cough, dyspnea, chest pain, abdominal pain, nausea, vomiting, hematuria or dizziness. Pt had CT of upper extremity on 10/09/17 which showed comminuted fracture dislocation right shoulder. Two large avulsed fx fragments from greater tuberosity. Pt is unable to find orthopedic surgeon. ED COURSE: VS: BP 150/97, HR 71, RR 18, T 97.6 F, pulse ox 99% CT head: normal head CT CBC, CMP : remarkable for AST 71, urine toxicology: Positive for Benzos ROS: 12 point review of systems negative except as mentioned in HPI PMD: Dr. Blankenship ( last visit 10/18/17), Mental Health: Maximilian Naranoj PMHx: HIV, HTN, Anxiety, Hep C, pulmonary nodule-ROXY stable, right shoulder injury. Allergies: TMP-SMX Meds: Tivicay 50 mg daily, Norvir 100 mg daily, Prezista 800 mg daily, Epclusa 400-100 mg daily, Percocet 10/325 mg po bid, Gabapentin 800 mg BID, alprazolam 2mg po bid. Pt's last outpatient visit reviewed and pt's does not take any active anti-epileptic medications and pt denies hx seizure. Family hx: noncontributory Sugrical hx: tonsillectomy 1978, b/l cataracts 2000 Social hx: neg ETOH, rect drugs. 1 pack per day smoker Code status: full code call worker person: Leslye (mother) [phone]; pt's mother was called but did not excelsior picker. Present on Admission - Present on Admission Any Indicators Present on Admission: Yes Review of Systems - Constitutional Constitutional: absent: Chills, Fever - Cardiovascular Cardiovascular: absent: Chest Pain, Dyspnea - Respiratory Respiratory: absent: Cough, Dyspnea - Gastrointestinal Gastrointestinal: absent: Abdominal Pain, Nausea, Vomiting - Musculoskeletal Additional comments: Right shoulder pain - Integumentary Integumentary: absent: Rash - Neurological Neurological: absent: Dizziness, Headaches Past Patient History - Infectious Disease Hx of Infectious Diseases: None - Past Medical History & Family History Past Medical History?: Yes - Past Social History Smoking Status: Heavy Smoker > 10 Cigarettes Daily - CARDIAC Hx Cardiac Disorders: Yes (HTN) - PULMONARY Hx Respiratory Disorders: Yes (asthma) - NEUROLOGICAL Hx Neurological Disorder: Yes (seizure) - HEENT Hx HEENT Problems: Yes Hx Cataracts: Yes - RENAL Hx Chronic Kidney Disease: No - ENDOCRINE/METABOLIC Hx Endocrine Disorders: No - HEMATOLOGICAL/ONCOLOGICAL Hx Blood Disorders: Yes (HIV) - INTEGUMENTARY Hx Dermatological Problems: Yes Other/Comment: Depigmented patches in extremities - MUSCULOSKELETAL/RHEUMATOLOGICAL Hx Musculoskeletal Disorders: Yes (FX and dislocations) - GASTROINTESTINAL Hx Gastrointestinal Disorders: No - GENITOURINARY/GYNECOLOGICAL Hx Genitourinary Disorders: No - PSYCHIATRIC Hx Psychophysiologic Disorder: Yes (depression, drug abuse) - SURGICAL HISTORY Hx Tonsillectomy: Yes - ANESTHESIA Hx Anesthesia: No Meds Allergies/Adverse Reactions: Allergies Allergy/AdvReac Type Severity Reaction Status Date / Time Penicillins Allergy REDNESS Verified 09/02/17 05:00 sulfamethoxazole Allergy FATIGUE Verified 09/02/17 05:00 [From Bactrim] trimethoprim [From Bactrim] Allergy FATIGUE Verified 09/02/17 05:00 Physical Exam - Constitutional Appears: No Acute Distress, Confused Additional comments: oriented to person and place but not time - Head Exam Additional comments: healing scar on left sided forehead - Eye Exam Eye Exam: EOMI, Normal appearance, PERRL - ENT Exam ENT Exam: Mucous Membranes Moist, Normal Exam - Neck Exam Neck exam: Positive for: Normal Inspection - Respiratory Exam Respiratory Exam: Clear to Auscultation Bilateral. absent: Rales, Rhonchi, Wheezes - Cardiovascular Exam Cardiovascular Exam: REGULAR RHYTHM, RRR, +S1, +S2 - GI/Abdominal Exam GI & Abdominal Exam: Normal Bowel Sounds, Soft. absent: Rebound, Rigid, Tenderness - Extremities Exam Extremities exam: Positive for: normal inspection. Negative for: pedal edema Additional comments: Right shoulder pain with passive and active ROM. strength 5/5, neuro intact. Left 3rd toe: has superficial laceration at the plantar aspects with old blood. No active bleeding. No surrounding erythema or swelling. Foot has full ROM and NVI. - Back Exam Back exam: NORMAL INSPECTION. absent: CVA tenderness (L), CVA tenderness (R) - Neurological Exam Neurological exam: Alert Additional comments: oriented to place and person but not time. - Psychiatric Exam Psychiatric exam: Anxious Results - Vital Signs Recent Vital Signs: Last Vital Signs Temp 97.9 F 10/27/17 11:34 Pulse 76 10/27/17 11:34 Resp 16 10/27/17 11:34 BP 145/80 10/27/17 11:34 Pulse Ox 99 10/27/17 11:34 - Labs Result Diagrams: 10/27/17 06:30 10/27/17 06:30 Labs: Laboratory Results - last 24 hr 10/27/17 10/27/17 10/27/17 06:30 06:30 07:40 WBC 7.7 RBC 4.41 Hgb 12.9 Hct 38.5 MCV 87.2 MCH 29.3 MCHC 33.6 RDW 15.6 H Plt Count 194 MPV 9.6 Neut % (Auto) 54.9 Lymph % (Auto) 35.9 [place] % (Auto) 7.1 Eos % (Auto) 1.0 Baso % (Auto) 1.1 Neut # (Auto) 4.2 Lymph # (Auto) 2.8 [place] # (Auto) 0.5 Eos # (Auto) 0.1 Baso # (Auto) 0.1 Sodium 146 Potassium 3.8 Chloride 110 H Carbon Dioxide 20 L Anion Gap 20 BUN 13 Creatinine 0.7 L Est GFR ( Amer) > 60 Est GFR (Non-Af Amer) > 60 Random Glucose 102 Calcium 9.2 Total Bilirubin 1.3 AST 71 H D ALT 51 Alkaline Phosphatase 96 Total Protein 8.1 Albumin 3.4 L Globulin 4.7 H Albumin/Globulin Ratio 0.7 L Urine Opiates Screen Negative Urine Methadone Screen Negative Ur Barbiturates Screen Negative Ur Phencyclidine Scrn Negative Ur Amphetamines Screen Negative U Benzodiazepines Scrn Positive U Oth Cocaine Metabols Negative U Cannabinoids Screen Negative Alcohol, Quantitative < 10 Assessment & Plan - Assessment and Plan (Free Text) Assessment: Assessment 62 yo male hx HIV and chronic right shoulder pain admitted for altered mental status, fall and right shoulder pain. Altered mental status -head CT: negative for acute pathology -Neuro check q8 hrs -monitor Unwitnessed Fall -Cervical, thoracic and L-S spine x-ray ordered -Head CT negative for acute pathology HIV infection -Last CD4: 368, CD4% cells: 10% -Continue home medications. Anxiety -resume xanax from home medications - Neuropathy -C/W Gabapentin Superficial laceration of left 3rd toe: -No active bleeding -No signs of infection -Bacitracin topical TID DVT prophylaxis scds for now Diet: regular diet
--- NOTE | 2017-10-27 15:36 | RAD ---
PROCEDURE: Left Foot Radiographs. HISTORY: left foot trauma COMPARISON: None. FINDINGS: BONES: No acute fracture. JOINTS: Normal. SOFT TISSUES: Normal. OTHER FINDINGS: Achilles enthesophyte. Small inferior plantar calcaneal spur. IMPRESSION: No demonstrated fracture or dislocation.
--- NOTE | 2017-10-27 16:03 | RAD ---
PROCEDURE: Cervical Spine Radiographs. HISTORY: Pain. COMPARISON: CT scan of the cervical spine dated 09/02/2017. FINDINGS: BONES: Alignment maintained. No fracture. Dens Intact. DISC SPACES: Limited evaluation of C5-6, C6-7 C7-T1 disc spaces. C4-5 degenerative changes. SOFT TISSUES: Normal. No prevertebral soft tissue swelling. OTHER FINDINGS: Patient is edentulous. IMPRESSION: Limited evaluation. Degenerative changes.
--- NOTE | 2017-10-27 16:05 | RAD ---
HISTORY: s/p fall last night COMPARISON: Correlations made to CT chest dated 09/02/2017. FINDINGS: BONES: Alignment maintained. No fracture. DISC SPACES: Normal. SOFT TISSUES: Normal. OTHER FINDINGS: None. IMPRESSION: Limited evaluation due to suboptimal technique. No definite acute fracture.
--- NOTE | 2017-10-27 16:08 | RAD ---
PROCEDURE: Radiographs of the Lumbar Spine. HISTORY: fall on back COMPARISON: CT scan of the lumbar spine dated 09/02/2017. FINDINGS: BONES: Normal alignment. No listhesis. L1 superior endplate fracture redemonstrated. DISC SPACES: Unremarkable. OTHER FINDINGS: None. IMPRESSION: No acute fracture. L1 superior endplate fracture redemonstrated.
[2017-10-27] MEDS: Bacitracin 500 Units/gm Oint Foilpak UD TOP SCH (19:43)
[2017-10-28] MEDS: Oxycodone/Acetaminophen 5/325 mg Tab PO PRN ×2 (04:39→15:00)
--- NOTE | 2017-10-28 08:18 | CP.PCM.PN ---
Subjective - Date & Time of Evaluation Date of Evaluation: 10/28/17 Time of Evaluation: 08:17 - Subjective Subjective: 62 y/o M evaluated and examined by bedside. Pt reports R shoulder pain is 12/10 intensity. Pt afebrile, tolerating PO, with NO acute events overnight/ --Niece was contacted over the phone, reports pt lives with his mother. His mother is not able to take care of him anymore. Niece feels pt puts in danger her grandmother's health. Niece's phone: [phone] Objective - Vital Signs/Intake and Output Vital Signs (last 24 hours): Temp Pulse Resp BP Pulse Ox 97.9 F 71 20 177/100 H 96 10/28/17 08:16 10/28/17 08:16 10/28/17 08:16 10/28/17 08:16 10/28/17 08:16 - Medications Medications: Current Medications Alprazolam (Xanax) 2 mg PO Q12 [facility] Last Admin: 10/27/17 22:25 Dose: 2 mg Bacitracin (Bacitracin) 1 ea TOP TID [facility] Last Admin: 10/27/17 19:43 Dose: 1 ea Darunavir (Prezista) 800 mg PO DAILY [facility] PRN Reason: Protocol Dolutegravir Sodium (Tivicay) 50 mg PO DAILY [facility] PRN Reason: Protocol Gabapentin (Neurontin) 800 mg PO Q12 [facility] Last Admin: 10/27/17 22:24 Dose: 800 mg Home Med (Rilpivirine Hcl [Edurant]) 25 mg PO DAILY [facility] Oxycodone/Acetaminophen (Percocet 5/325 Mg Tab) 1 tab PO BID PRN PRN Reason: Pain, moderate (4-7) Stop: 10/30/17 10:29 Last Admin: 10/28/17 04:39 Dose: 1 tab Paroxetine HCl (Paxil) 30 mg PO DAILY [facility] Last Admin: 10/27/17 15:54 Dose: 30 mg Ritonavir (Norvir) 100 mg PO DAILY [facility] - Labs Labs: 10/27/17 06:30 10/27/17 06:30 - Constitutional Appears: Non-toxic - Head Exam Head Exam: ATRAUMATIC, NORMAL INSPECTION - Eye Exam Eye Exam: EOMI, Normal appearance - ENT Exam ENT Exam: Mucous Membranes Moist - Neck Exam Neck Exam: Full ROM. absent: Meningismus - Respiratory Exam Respiratory Exam: Clear to Ausculation Bilateral, NORMAL BREATHING PATTERN - Cardiovascular Exam Cardiovascular Exam: +S1, +S2 - GI/Abdominal Exam GI & Abdominal Exam: Soft, Normal Bowel Sounds. absent: Distended, Firm, Guarding, Tenderness - Extremities Exam Extremities Exam: Full ROM. absent: Calf Tenderness, Pedal Edema Additional comments: R shoulder pain: non-tender, ROM seems normal, SILT, strength 5/5, symmetric to L shoulder and arm. - Neurological Exam Neurological Exam: Alert, Awake, Oriented x3 Assessment and Plan - Assessment and Plan (Free Text) Assessment: 62 yo male hx HIV and chronic right shoulder pain admitted for altered mental status, fall and right shoulder pain. R shoulder pain -Chronic -Ibuprofen 600mg PRN. -PT/OT consult, will f/u recommendations. Altered mental status -Resolved -head CT: negative for acute pathology -Neuro check q8 hrs -monitor Unwitnessed Fall -Cervical, thoracic and L-S spine x-ray were unremarkable -Head CT negative for acute pathology HIV infection -Last CD4: 368, CD4% cells: 10% -Continue home medications. Anxiety -resume xanax from home medications - Neuropathy -C/W Gabapentin Superficial laceration of left 3rd toe: -No active bleeding -No signs of infection -Bacitracin topical TID DVT prophylaxis scds for now Diet: regular diet
[2017-10-28] MEDS: Bacitracin 500 Units/gm Oint Foilpak UD TOP SCH ×3 (11:28→17:07)
--- NOTE | 2017-10-29 07:34 | CP.PCM.PN ---
Subjective - Date & Time of Evaluation Date of Evaluation: 10/29/17 Time of Evaluation: 07:34 - Subjective Subjective: 62 y/o M evaluated and examined by bedside. Pt c/o of excruciating R shoulder pain, 10/10 intensity. Pt reports hospital medications does not help with his pain. Pt reports he will get a surgery soon. Pt afebrile and tolerating PO. Objective - Vital Signs/Intake and Output Vital Signs (last 24 hours): Temp Pulse Resp BP Pulse Ox 98.2 F 67 18 158/97 H 98 10/29/17 06:33 10/29/17 06:33 10/29/17 06:33 10/29/17 06:33 10/29/17 06:33 - Medications Medications: Current Medications Alprazolam (Xanax) 2 mg PO Q12 [facility] Last Admin: 10/28/17 21:59 Dose: 2 mg Bacitracin (Bacitracin) 1 ea TOP TID [facility] Last Admin: 10/28/17 17:07 Dose: 1 ea Darunavir (Prezista) 800 mg PO DAILY [facility] PRN Reason: Protocol Last Admin: 10/28/17 08:30 Dose: 800 mg Dolutegravir Sodium (Tivicay) 50 mg PO DAILY [facility] PRN Reason: Protocol Gabapentin (Neurontin) 800 mg PO Q12 [facility] Last Admin: 10/28/17 21:58 Dose: 800 mg Home Med (Rilpivirine Hcl [Edurant]) 25 mg PO DAILY [facility] Hydrochlorothiazide (Microzide) 12.5 mg PO DAILY [facility] Last Admin: 10/28/17 11:23 Dose: 12.5 mg Ibuprofen (Motrin Tab) 600 mg PO Q6 PRN PRN Reason: Pain, severe (8-10) Oxycodone/Acetaminophen (Percocet 5/325 Mg Tab) 1 tab PO BID PRN PRN Reason: Pain, moderate (4-7) Stop: 10/30/17 10:29 Last Admin: 10/28/17 15:00 Dose: 1 tab Paroxetine HCl (Paxil) 30 mg PO DAILY [facility] Last Admin: 10/28/17 08:30 Dose: 30 mg Ritonavir (Norvir) 100 mg PO DAILY [facility] Last Admin: 10/28/17 08:30 Dose: 100 mg - Labs Labs: 10/27/17 06:30 10/27/17 06:30 - Constitutional Appears: Non-toxic, Unkempt - Head Exam Head Exam: NORMAL INSPECTION - Eye Exam Eye Exam: EOMI - ENT Exam ENT Exam: Mucous Membranes Moist - Neck Exam Neck Exam: Full ROM. absent: Meningismus - Respiratory Exam Respiratory Exam: Clear to Ausculation Bilateral, NORMAL BREATHING PATTERN - Cardiovascular Exam Cardiovascular Exam: +S1, +S2 - GI/Abdominal Exam GI & Abdominal Exam: Soft. absent: Tenderness - Extremities Exam Additional comments: R shoulder: tender, no echymosis noted, ROM is normal but painful, SILT, Strength 5/5 in both arms. Assessment and Plan - Assessment and Plan (Free Text) Assessment: 62 yo male hx HIV and chronic right shoulder pain admitted for altered mental status, fall and right shoulder pain. R shoulder pain -Chronic, severe -Ibuprofen 600mg PRN. -R shoulder X ray showed recurrent ant inf dislocation with fracture fragments inferiorly to pre-existing fracture. -PT/OT consult, -Orthopedic Surgeon consult ordered, Dr Ashford. Altered mental status -Resolved -head CT: negative for acute pathology -Neuro check q8 hrs -monitor Unwitnessed Fall -Cervical, thoracic and L-S spine x-ray were unremarkable for acute pathology. -Head CT negative for acute pathology HIV infection -Last CD4: 368, CD4% cells: 10% -Continue home medications. Anxiety -Resume xanax from home medications Neuropathy -C/W Gabapentin Superficial laceration of left 3rd toe: -No active bleeding -No signs of infection -Bacitracin topical TID DVT prophylaxis scds for now Diet: regular diet
[2017-10-29] MEDS: Bacitracin 500 Units/gm Oint Foilpak UD TOP SCH ×3 (08:07→15:59)
[2017-10-29] MEDS: Oxycodone/Acetaminophen 5/325 mg Tab PO PRN ×2 (10:21→16:38)
--- NOTE | 2017-10-29 11:42 | RAD ---
PROCEDURE: Radiographs of the Right Shoulder HISTORY: h/o Anterior dislocation COMPARISON: Plain films and CT right shoulder 10/09/2017. FINDINGS: BONES: Chronic or recurrent dislocation of the glenohumeral joint is again appreciated with the humeral head inferomedial to the glenoid process of the scapula. A large Hill-Sachs deformity is appreciated at the superolateral humeral head once again with new fracture suspected inferior to 2 free fragments seen superolaterally which may indicate recurrent dislocation rather than chronic dislocation. Limited degenerative changes seen the acromioclavicular joint which is not . JOINTS: As above. SOFT TISSUES: As above. OTHER FINDINGS: None. IMPRESSION: Likely recurrent anterior inferior dislocation of the humeral head with additional fracture fragments seen inferior to to pre-existing fracture fragments at the lateral right shoulder soft tissues. Large Hill-Sachs deformity is seen at the humeral head once again.
--- NOTE | 2017-10-29 16:52 | CP.PCM.CON ---
History of Present Illness - History of Present Illness History of Present Illness: Orthopedic consultation Dr. Ashford 62M complains of severe right shoulder pain x months. He says that his right shoulder has been dislocated since August, and that he was supposed to follow up in [place] with an orthopedic doctor but he waited a long time and no one called him back. He says that he never had a dislocation prior to this episode. He denies numbness and tingling. Per medical record, patient had right shoulder dislocation 09/19/2016 that was reduced in ER. Patient had CXR 09/07/2017 and right shoulder was not dislocated at that time. Patient is very poor historian. Medical record reviewed. CT shows hemarthrosis to indicate that dislocation was likely acute at that time , but at that time patient was complaining of shoulder pain for months. No reduction was done in ER at that visit. Review of Systems - Review of Systems All systems: reviewed and no additional remarkable complaints except Review of Systems: poor historian - Musculoskeletal Musculoskeletal: As Per HPI - Neurological Neurological: As Per HPI Past Patient History - Infectious Disease Hx of Infectious Diseases: None - Past Medical History & Family History Past Medical History?: Yes - Past Social History Smoking Status: Heavy Smoker > 10 Cigarettes Daily - CARDIAC Hx Hypertension: Yes - PULMONARY Hx Chronic Obstructive Pulmonary Disease (COPD): Yes Hx Pneumonia: Yes - NEUROLOGICAL Hx Neurological Disorder: Yes (seizure) - HEENT Hx HEENT Problems: Yes Hx Cataracts: Yes - RENAL Hx Chronic Kidney Disease: No - ENDOCRINE/METABOLIC Hx Endocrine Disorders: No - HEMATOLOGICAL/ONCOLOGICAL Hx Human Immunodeficiency Virus (HIV): Yes - INTEGUMENTARY Hx Dermatological Problems: Yes Other/Comment: Depigmented patches in extremities - MUSCULOSKELETAL/RHEUMATOLOGICAL Hx Musculoskeletal Disorders: Yes (FX and dislocations) - GASTROINTESTINAL Hx Gastrointestinal Disorders: No - GENITOURINARY/GYNECOLOGICAL Hx Genitourinary Disorders: No - PSYCHIATRIC Hx Anxiety: Yes Hx Depression: Yes - SURGICAL HISTORY Hx Tonsillectomy: Yes - ANESTHESIA Hx Anesthesia: No Meds Allergies/Adverse Reactions: Allergies Allergy/AdvReac Type Severity Reaction Status Date / Time Penicillins Allergy REDNESS Verified 09/02/17 05:00 sulfamethoxazole Allergy FATIGUE Verified 09/02/17 05:00 [From Bactrim] trimethoprim [From Bactrim] Allergy FATIGUE Verified 09/02/17 05:00 - Medications Medications: Current Medications Alprazolam (Xanax) 2 mg PO Q12 [facility] Last Admin: 10/29/17 08:10 Dose: 2 mg Bacitracin (Bacitracin) 1 ea TOP TID [facility] Last Admin: 10/29/17 15:59 Dose: 1 ea Darunavir (Prezista) 800 mg PO DAILY [facility] PRN Reason: Protocol Last Admin: 10/29/17 08:08 Dose: 800 mg Dolutegravir Sodium (Tivicay) 50 mg PO DAILY [facility] PRN Reason: Protocol Gabapentin (Neurontin) 800 mg PO Q12 [facility] Last Admin: 10/29/17 08:08 Dose: 800 mg Home Med (Rilpivirine Hcl [Edurant]) 25 mg PO DAILY [facility] Hydrochlorothiazide (Microzide) 12.5 mg PO DAILY [facility] Last Admin: 10/29/17 08:08 Dose: 12.5 mg Ibuprofen (Motrin Tab) 600 mg PO Q6 PRN PRN Reason: Pain, severe (8-10) Oxycodone/Acetaminophen (Percocet 5/325 Mg Tab) 1 tab PO BID PRN PRN Reason: Pain, moderate (4-7) Stop: 10/30/17 10:29 Last Admin: 10/29/17 16:38 Dose: 1 tab Paroxetine HCl (Paxil) 30 mg PO DAILY [facility] Last Admin: 10/29/17 08:07 Dose: 30 mg Ritonavir (Norvir) 100 mg PO DAILY [facility] Last Admin: 10/29/17 08:08 Dose: 100 mg Physical Exam - Constitutional Appears: Well, No Acute Distress - Expanded Upper Extremities Exam Right Shoulder exam: dislocation (mild swelling, has some range of motion that is mildly painful) Elbow exam: full ROM Neuro motor exam: finger 2-5 abduction intact, thumb abduction, thumb IP flexion intact, thumb opposition intact, wrist extension intact Neurosensory exam: median nerve intact, radial nerve intact, ulnar nerve intact (sensation intact to lateral shoulder, able to shrug shoulders) Vascular exam: radial pulse - Neurological Exam Neurological exam: Alert - Psychiatric Exam Additional comments: gets agitated quickly - Skin Skin Exam: Dry, Intact, Normal Color, Warm Results - Vital Signs Recent Vital Signs: Last Vital Signs Temp 97.8 F 10/29/17 15:39 Pulse 69 10/29/17 15:39 Resp 20 10/29/17 15:39 BP 125/79 10/29/17 15:39 Pulse Ox 98 10/29/17 15:39 - Labs Result Diagrams: 10/27/17 06:30 10/27/17 06:30 - Impressions Impression: Report Date : 10/29/2017 11:35:59 My Comment : PROCEDURE: Radiographs of the Right Shoulder HISTORY: h/o Anterior dislocation COMPARISON: Plain films and CT right shoulder 10/09/2017. FINDINGS: BONES: Chronic or recurrent dislocation of the glenohumeral joint is again appreciated with the humeral head inferomedial to the glenoid process of the scapula. A large Hill-Sachs deformity is appreciated at the superolateral humeral head once again with new fracture suspected inferior to 2 free fragments seen superolaterally which may indicate recurrent dislocation rather than chronic dislocation. Limited degenerative changes seen the acromioclavicular joint which is not . JOINTS: As above. SOFT TISSUES: As above. OTHER FINDINGS: None. IMPRESSION: Likely recurrent anterior inferior dislocation of the humeral head with additional fracture fragments seen inferior to to pre-existing fracture fragments at the lateral right shoulder soft tissues. Large Hill-Sachs deformity is seen at the humeral head once again. Assessment & Plan (1) Dislocation of right shoulder joint Assessment and Plan: shoulder has been dislocated since at least 10/09/17 d/w Dr. Ashford Status: Acute
[2017-10-29] MEDS: Enoxaparin 40 mg Syringe SC SCH ×2 (21:30→21:53)
[2017-10-30] MEDS: Oxycodone/Acetaminophen 5/325 mg Tab PO PRN ×2 (04:04→17:57)
[2017-10-30 06:33] LABS: HEMOGLOBIN 13.2 g/dL (12.0-18.0); MEAN CELL VOLUME 86.9 fl (80.0-94.0); MEAN CORPUSCULAR HEMOGLOBIN 29.1 pg (27.0-31.0); MEAN CORPUSCULAR HGB CONC 33.5 g/dL (33.0-37.0); RBC 4.52 Mil/uL (4.40-5.90); RED CELL DISTRIBUTION WIDTH 15.4 % (11.5-14.5); WHITE BLOOD COUNT 5.4 K/uL (4.8-10.8)
--- NOTE | 2017-10-30 06:52 | CP.PCM.PN ---
Subjective - Date & Time of Evaluation Date of Evaluation: 10/30/17 Time of Evaluation: 08:00 - Subjective Subjective: 62 y/o M evaluated and examined by bedside. Pt c/o R shoulder pain, 10/10 intensity, constant and NOT alleviated with given medications. Pt afebrile, tolerating PO. Objective - Vital Signs/Intake and Output Vital Signs (last 24 hours): Temp Pulse Resp BP Pulse Ox 97.8 F 69 20 125/79 98 10/29/17 15:39 10/29/17 15:39 10/29/17 15:39 10/29/17 15:39 10/29/17 15:39 - Medications Medications: Current Medications Alprazolam (Xanax) 2 mg PO Q12 [facility] Last Admin: 10/29/17 20:18 Dose: 2 mg Bacitracin (Bacitracin) 1 ea TOP TID [facility] Last Admin: 10/29/17 15:59 Dose: 1 ea Darunavir (Prezista) 800 mg PO DAILY [facility] PRN Reason: Protocol Last Admin: 10/29/17 08:08 Dose: 800 mg Dolutegravir Sodium (Tivicay) 50 mg PO DAILY [facility] PRN Reason: Protocol Enoxaparin Sodium (Lovenox) 40 mg SC HS [facility] PRN Reason: Protocol Last Admin: 10/29/17 21:30 Dose: Not Given Gabapentin (Neurontin) 800 mg PO Q12 [facility] Last Admin: 10/29/17 21:30 Dose: Not Given Home Med (Rilpivirine Hcl [Edurant]) 25 mg PO DAILY [facility] Hydrochlorothiazide (Microzide) 12.5 mg PO DAILY [facility] Last Admin: 10/29/17 08:08 Dose: 12.5 mg Ibuprofen (Motrin Tab) 600 mg PO Q6 PRN PRN Reason: Pain, severe (8-10) Oxycodone/Acetaminophen (Percocet 5/325 Mg Tab) 1 tab PO BID PRN PRN Reason: Pain, moderate (4-7) Stop: 10/30/17 10:29 Last Admin: 10/30/17 04:04 Dose: 1 tab Paroxetine HCl (Paxil) 30 mg PO DAILY [facility] Last Admin: 10/29/17 08:07 Dose: 30 mg Ritonavir (Norvir) 100 mg PO DAILY [facility] Last Admin: 10/29/17 08:08 Dose: 100 mg - Labs Labs: 10/30/17 06:00 10/27/17 06:30 - Constitutional Appears: Well, No Acute Distress - Eye Exam Eye Exam: EOMI - ENT Exam ENT Exam: Mucous Membranes Dry - Neck Exam Neck Exam: Full ROM - Respiratory Exam Respiratory Exam: Clear to Ausculation Bilateral, NORMAL BREATHING PATTERN - Cardiovascular Exam Cardiovascular Exam: +S1, +S2 - GI/Abdominal Exam GI & Abdominal Exam: Soft, Normal Bowel Sounds. absent: Tenderness - Extremities Exam Additional comments: R upper extremity: ROM is normal but painful, tender, SILT, distal pulses present, strength 5/5. - Neurological Exam Neurological Exam: Alert, Awake, Oriented x3 Assessment and Plan - Assessment and Plan (Free Text) Assessment: 62 yo male hx HIV and chronic right shoulder pain admitted for altered mental status, fall and right shoulder pain. Chronic R shoulder pain due to dislocation and R shoulder fracture -Chronic, severe -IPercocet 5/325 PRN BID. -R shoulder X ray showed recurrent ant inf dislocation with fracture fragments inferiorly to pre-existing fracture. -Orthopedic Surgeon consult, Dr Ashford, recommendations appreciated. -CT of R shoulder with IV contrast for today, as per Ortho. Altered mental status due to s/p fall vs poss intoxicantion vs poss dementia vs unknown etiology -Resolved -head CT: negative for acute pathology -Neuro check q8 hrs -monitor Unwitnessed Fall -Cervical, thoracic and L-S spine x-ray were unremarkable for acute pathology. -Head CT negative for acute pathology HIV infection -Last CD4: 368, CD4% cells: 10% -Continue home medications. Anxiety -Resume xanax from home medications Neuropathy -C/W Gabapentin Superficial laceration of left 3rd toe: -No active bleeding -No signs of infection -Bacitracin topical TID DVT prophylaxis -scds for now, -NO heparin as pt may go for surgery. Diet: -regular diet
[2017-10-30 06:53] LABS: BLOOD UREA NITROGEN 20 mg/dl (9-20); CALCIUM 8.8 mg/dL (8.4-10.2); GFR AFRICAN-AMERICAN > 60; GFR NON-AFRICAN AMERICAN > 60
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
[2017-10-30] MEDS: Bacitracin 500 Units/gm Oint Foilpak UD TOP SCH ×3 (08:28→17:19)
--- NOTE | 2017-10-30 08:42 | PQF GENQUE ---
Dr. Aviles, 2 queires: 1.Please clarify the status of patient's HIV:Asymtomatic versus Symptomatic Other (please specify) Clinically unable to determine Unknown 2. Please also document all associated manifestations of HIV 10/30 Attending progress note: HIV infection -Last CD4: 368, CD4% cells: 10% - Continue home medications. This form is a permanent part of the medical record Clarification of your documentation is requested to better reflect the severity of illness and intensity of treatment of your patient. Indicators present [] Specify: [] [] Specify: [] [] Specify: [] [] Specify: [] Location in the medical record that reflects the above clinical findings: [] Treatment Provided: [] PHYSICIAN'S RESPONSE Based on your medical judgment of the clinical indicators outlined above please clarify the following: [] Practitioner response [] If unable to determine, please check the box, sign and date. Present On Admission (POA) Indicator: [] Present at the time of admission [] Not present at the time of admission [] Clinically Undetermined In responding to this query, please exercise your independent professional judgment. The fact that a question is asked does not imply that any particular answer is desired or expected. Thank you for your clarification on this documentation. If you have any questions please call. * Thank you, Karina Albarran RN ext. #[phone] MTDD
--- NOTE | 2017-10-30 08:52 | PQF GENQUE ---
Dr. Aviles, Please clarify the underlying cause of patient's altered mental status:if known : if you chose a body system listed below please include the associated diagnosis: i.e Psychiatric etiology: Dementia or if Neurologic etiology: Encephalopathy etc. Cardiac condition Electrolyte/metabolic imbalance Infectious process Neurologic condition Psychiatric condition Respiratory condition Other condition (please specify) Clinically unable to determine Unknown 10/30 Attending Progress note: Altered mental status -Resolved -head CT: negative for acute pathology -Neuro check q8 hrs -monitor This form is a permanent part of the medical record Clarification of your documentation is requested to better reflect the severity of illness and intensity of treatment of your patient. Indicators present [] Specify: [] [] Specify: [] [] Specify: [] [] Specify: [] Location in the medical record that reflects the above clinical findings: [] Treatment Provided: [] PHYSICIAN'S RESPONSE Based on your medical judgment of the clinical indicators outlined above please clarify the following: [] Practitioner response [] If unable to determine, please check the box, sign and date. Present On Admission (POA) Indicator: [] Present at the time of admission [] Not present at the time of admission [] Clinically Undetermined In responding to this query, please exercise your independent professional judgment. The fact that a question is asked does not imply that any particular answer is desired or expected. Thank you for your clarification on this documentation. If you have any questions please call. * Thank you, Karina Albarran RN ext. #[phone] MTDD
[2017-10-30] MEDS: Lidocaine 5% Patch TD SCH (13:00)
--- NOTE | 2017-10-30 13:17 | CT ---
PROCEDURE: CT RIGHT SHOULDER WITHOUT CONTRAST HISTORY: right shoulder dislocation COMPARISON: Right shoulder radiographs 10/29/2017. TECHNIQUE: A volumetric CT acquisition through the right shoulder was performed without intravenous contrast as requested. Reformatted datasets imbedded in sagittal axial and coronal planes. FINDINGS: Examination reiterates the plain film findings of an anterior inferior dislocation of the right humeral head relative to the glenoid process. Small residual chip fractures are identified at the soft tissues of the right shoulder laterally relative to the right humeral head. There is a large defect at the superolateral right humeral head is volume would be at least a 3rd of the entire humeral head suggestive of a large Hill-Sachs deformity. The posterior inferior margins of the glenoid process are seen lateral to this portion of the right humeral head. A tiny bony fragments seen medial to the medial margins of the glenoid rim with splenic process otherwise unremarkable. Moderately large subdeltoid bursal effusion is appreciated. The acromion-clavicular joint appears mildly degenerated but is intact otherwise. The coracoid process is also unremarkable. Trace fibrotic changes incidentally noted at the right pulmonary apex. IMPRESSION: Persistent anteroinferior dislocation of right humeral head relative to the glenoid process which is posterior lateral to the remaining right humeral head. A large Hill-Sachs deformity of the humeral head is appreciated with fragments noted in the bilateral shoulder soft tissue deep to the deltoid muscle. A moderately large subdeltoid effusion is appreciated. Tiny chip or avulsion fracture seen posterior to the medial rim of the glenoid process.
--- NOTE | 2017-10-30 15:20 | RAD ---
HISTORY: evaluate for pre op clearance COMPARISON: 09/07/2017 TECHNIQUE: Chest PA and lateral FINDINGS: LUNGS: No active pulmonary disease. PLEURA: No significant pleural effusion identified. No pneumothorax apparent. CARDIOVASCULAR: No radiographic findings to suggest acute or significant cardiovascular disease. OSSEOUS STRUCTURES: No significant abnormalities. VISUALIZED UPPER ABDOMEN: Normal. OTHER FINDINGS: None. IMPRESSION: No active disease. No significant interval change compared to the prior examination(s).
[2017-10-30] MEDS: Patient's Own Med(TIVICAY 50MG) PO SCH (17:19)
[2017-10-30 17:24] LABS: ALB/GLOB RATIO 0.9 (1.0-2.1); ALBUMIN 3.6 g/dL (3.5-5.0); BILIRUBIN,DIRECT 0.5 mg/ml (0.0-0.4)
[2017-10-30 17:44] LABS: PROTHROMBIN TIME 10.5 Seconds (9.8-13.1)
[2017-10-30 17:45] LABS: PARTIAL THROMBOPLASTIN TIME 32.8 Seconds (25.6-37.1)
--- NOTE | 2017-10-30 22:04 | CP.PCM.PCO ---
Physician Communication Note - Physician Communication Note Physician Communication Note: Patient optimized for shoulder surgery tomorrow
[2017-10-31] MEDS: Dextrose 5%/Lactated Ringer's 1,000 ML IV SCH ×2 (05:33→16:16)
[2017-10-31 06:29] LABS: HEMOGLOBIN 13.2 g/dL (12.0-18.0); MEAN CELL VOLUME 86.6 fl (80.0-94.0); MEAN CORPUSCULAR HEMOGLOBIN 28.9 pg (27.0-31.0); MEAN CORPUSCULAR HGB CONC 33.3 g/dL (33.0-37.0); RBC 4.57 Mil/uL (4.40-5.90); RED CELL DISTRIBUTION WIDTH 15.2 % (11.5-14.5); WHITE BLOOD COUNT 5.4 K/uL (4.8-10.8)
[2017-10-31] MEDS: Oxycodone/Acetaminophen 5/325 mg Tab PO PRN (06:30)
--- NOTE | 2017-10-31 07:01 | CP.PCM.PN ---
Subjective - Date & Time of Evaluation Date of Evaluation: 10/31/17 Time of Evaluation: 07:01 - Subjective Subjective: 62 y/o M evaluated and examined by bedside. Pt complains of R shoulder pain, states that Percocet 5/325mg does NOT alleviates his pain at all. Pt aware he will go to OR later today. Pt afebrile with NO acute events overnight. Pt denies headache, chest pain, SOB, abdominal pain, nausea, vomiting, calf pain. Objective - Vital Signs/Intake and Output Vital Signs (last 24 hours): Temp Pulse Resp BP Pulse Ox 97.8 F 72 18 145/90 96 10/31/17 00:24 10/31/17 00:24 10/31/17 00:24 10/31/17 00:24 10/31/17 00:24 - Medications Medications: Current Medications Alprazolam (Xanax) 2 mg PO Q12 [facility] Last Admin: 10/30/17 20:12 Dose: 2 mg Bacitracin (Bacitracin) 1 ea TOP TID [facility] Last Admin: 10/30/17 17:19 Dose: 1 ea Darunavir (Prezista) 800 mg PO DAILY [facility] PRN Reason: Protocol Last Admin: 10/30/17 08:29 Dose: 800 mg Enoxaparin Sodium (Lovenox) 40 mg SC HS [facility] PRN Reason: Protocol Last Admin: 10/29/17 21:30 Dose: Not Given Gabapentin (Neurontin) 800 mg PO Q12 [facility] Last Admin: 10/30/17 20:12 Dose: 800 mg Home Med (Patient's Own Medication) 50 unit PO DAILY [facility] PRN Reason: Protocol Last Admin: 10/30/17 17:19 Dose: 50 unit Home Med (Rilpivirine Hcl [Edurant]) 25 mg PO DAILY [facility] Hydrochlorothiazide (Microzide) 12.5 mg PO DAILY [facility] Last Admin: 10/30/17 08:29 Dose: 12.5 mg Dextrose/Lactated Ringer's (Dextrose 5%/Lactated Ringer's) 1,000 mls @ 84 mls/ hr IV .[id number] [facility] Stop: 10/31/17 17:42 Last Admin: 10/31/17 05:33 Dose: 84 mls/hr Ibuprofen (Motrin Tab) 600 mg PO Q6 PRN PRN Reason: Pain, severe (8-10) Lidocaine (Lidoderm) 1 ea TD DAILY [facility] Last Admin: 10/30/17 13:00 Dose: 1 ea Oxycodone/Acetaminophen (Percocet 5/325 Mg Tab) 1 tab PO BID PRN PRN Reason: Pain, severe (8-10) Stop: 11/02/17 10:31 Last Admin: 10/31/17 06:30 Dose: 1 tab Paroxetine HCl (Paxil) 30 mg PO DAILY [facility] Last Admin: 10/30/17 08:30 Dose: 30 mg Ritonavir (Norvir) 100 mg PO DAILY [facility] Last Admin: 10/30/17 08:30 Dose: 100 mg - Labs Labs: 10/31/17 06:00 10/30/17 06:00 PT 10.5 Seconds (9.8-13.1) 10/30/17 16:47 INR 1.0 (0.9-1.2) 10/30/17 16:47 APTT 32.8 Seconds (25.6-37.1) 10/30/17 16:47 - Constitutional Appears: Toxic - Head Exam Head Exam: ATRAUMATIC - Eye Exam Eye Exam: EOMI, Normal appearance - ENT Exam ENT Exam: Mucous Membranes Moist - Neck Exam Neck Exam: Full ROM. absent: Meningismus - Respiratory Exam Respiratory Exam: Clear to Ausculation Bilateral, NORMAL BREATHING PATTERN - Cardiovascular Exam Cardiovascular Exam: REGULAR RHYTHM, +S1, +S2 - GI/Abdominal Exam GI & Abdominal Exam: Soft. absent: Tenderness Assessment and Plan - Assessment and Plan (Free Text) Assessment: 62 yo male hx HIV and chronic right shoulder pain admitted for altered mental status, fall and right shoulder pain. Chronic R shoulder pain due to dislocation and R shoulder fracture -Chronic, severe -Percocet 5/325 PRN BID. -R shoulder X ray showed recurrent ant inf dislocation with fracture fragments inferiorly to pre-existing fracture. -Orthopedic Surgeon consult, Dr Ashford, recommendations appreciated. -Will got to OR for close reduction of R shoulder. -F/U PT/OT recommendations Altered mental status due to s/p fall vs possible intoxicantion vs possible dementia vs HIV dementia vs unknown etiology -Resolved -Head CT: negative for acute pathology -Neuro check q8 hrs -monitor Unwitnessed Fall -Cervical, thoracic and L-S spine x-ray were unremarkable for acute pathology. -Head CT negative for acute pathology HIV Asymptomatic -Last CD4: 368, CD4% cells: 10% -Viral load undetectable -Continue home medications. Anxiety -Resume xanax from home medications Neuropathy -C/W Gabapentin Superficial laceration of left 3rd toe: -No active bleeding -No signs of infection -Bacitracin topical TID DVT prophylaxis -scds for now, -NO heparin as pt may go for surgery. Diet: -regular diet
[2017-10-31 07:04] LABS: BLOOD UREA NITROGEN 21 mg/dl (9-20); GFR AFRICAN-AMERICAN > 60; GFR NON-AFRICAN AMERICAN > 60
[2017-10-31] MEDS: Bacitracin 500 Units/gm Oint Foilpak UD TOP SCH ×3 (07:59→16:16)
[2017-10-31] MEDS: Lidocaine 5% Patch TD SCH (08:51)
[2017-10-31] MEDS: Patient's Own Med(TIVICAY 50MG) PO SCH ×2 (08:53→16:17)
[2017-10-31] MEDS ORDERED: Lactated Ringer's 1,000 ML IV ONE (12:28)
[2017-10-31] MEDS ORDERED: Midazolam 2 MG/2 ML VIAL ONE (12:30)
[2017-10-31] MEDS ORDERED: Rocuronium 10 mg/ml (5 ml) ONE (12:30)
[2017-10-31] MEDS ORDERED: Propofol 10 mg/ml Inj (20 ML) ONE (12:30)
[2017-10-31] MEDS ORDERED: ePHEDrine 50 mg/ml Inj ONE (12:56)
[2017-10-31] MEDS ORDERED: Phenylephrine 10 mg/ml Inj ONE (13:03)
[2017-10-31] MEDS: Morphine 4 MG/ML VIAL IVP PRN ×3 (13:37→20:49)
[2017-10-31] MEDS ORDERED: Morphine 4 MG/ML VIAL ONE (13:37)
[2017-10-31] MEDS: Morphine 4 MG/ML VIAL IVP ONE ×2 (14:10→16:13)
--- NOTE | 2017-10-31 16:30 | RAD ---
PROCEDURE: Fluoroscopy up to 1 hr. HISTORY: RIGHT SHOULDER CLOSED REDUCTION COMPARISON: None TECHNIQUE: Standard protocol for this study/examination. FINDINGS: Total fluoroscopic time (continuous mode) utilized during the procedure 1007.9 (seconds). Total exam DLP: (mGy) 04/1960. IMPRESSION: Less than 1 hr fluoroscopic time utilized during performance of the procedure.
--- NOTE | 2017-10-31 23:18 | PCM.SURG1 ---
Surgeon's Initial Post Op Note - Surgeon's Notes Surgeon: Darcy Ahsford MD Multiple Coil Winder: None Type of Anesthesia: General Endo Pre-Operative Diagnosis: Right shoulder: #1 Anterior inferior gleno-humeral joint dislocation. #2 Large Hill Sachs Deformity Operative Findings: Right shoulder: #1 Anterior inferior gleno-humeral joint dislocation. #2 Large Hill Sachs Deformity. #3 significant instability Post-Operative Diagnosis: Right shoulder: #1 Anterior inferior gleno-humeral joint dislocation. #2 Large Hill Sachs Deformity. #3 significant instability Operation Performed: Right shoulder anterior gleno-humeral joint dislocation closed reduction/relocation under anesthesia Specimen/Specimens Removed: specimen= none. complications= none. imlants= none Estimated Blood Loss: EBL {In ML}: 0 Blood Products Given: N/A Drains Used: No Drains Post-Op Condition: Good Date of Surgery/Procedure: 10/31/17 Time of Surgery/Procedure: 13:00
[2017-11-01] MEDS: Morphine 4 MG/ML VIAL IVP PRN ×3 (05:27→18:22)
[2017-11-01] MEDS: Patient's Own Med(TIVICAY 50MG) PO SCH (08:35)
[2017-11-01] MEDS: Enoxaparin 40 mg Syringe SC SCH (08:37)
[2017-11-01] MEDS: Lidocaine 5% Patch TD SCH (08:38)
[2017-11-01] MEDS: Bacitracin 500 Units/gm Oint Foilpak UD TOP SCH ×3 (08:39→17:18)
--- NOTE | 2017-11-01 11:19 | CP.PCM.PN ---
Subjective - Date & Time of Evaluation Date of Evaluation: 11/01/17 Time of Evaluation: 08:00 - Subjective Subjective: Patient seen and examined at bedside comfortable. Pain is much improved. He has kept shoulder immobilized. No new complaints. Objective - Vital Signs/Intake and Output Vital Signs (last 24 hours): Temp Pulse Resp BP Pulse Ox 97.9 F 77 20 149/90 98 11/01/17 08:19 11/01/17 08:19 11/01/17 08:19 11/01/17 08:19 11/01/17 08:19 - Medications Medications: Current Medications Alprazolam (Xanax) 2 mg PO Q12 [facility] Last Admin: 11/01/17 08:40 Dose: 2 mg Bacitracin (Bacitracin) 1 ea TOP TID [facility] Last Admin: 11/01/17 08:39 Dose: 1 ea Darunavir (Prezista) 800 mg PO DAILY [facility] PRN Reason: Protocol Last Admin: 11/01/17 08:36 Dose: 800 mg Enoxaparin Sodium (Lovenox) 40 mg SC DAILY [facility] PRN Reason: Protocol Last Admin: 11/01/17 08:37 Dose: 40 mg Gabapentin (Neurontin) 800 mg PO Q12 [facility] Last Admin: 11/01/17 08:36 Dose: 800 mg Home Med (Patient's Own Medication) 50 unit PO DAILY [facility] PRN Reason: Protocol Last Admin: 11/01/17 08:35 Dose: 50 unit Home Med (Rilpivirine Hcl [Edurant]) 25 mg PO DAILY [facility] Hydrochlorothiazide (Microzide) 12.5 mg PO DAILY [facility] Last Admin: 11/01/17 08:36 Dose: 12.5 mg Ketorolac Tromethamine (Toradol) 30 mg IVP Q6 PRN PRN Reason: Pain, moderate (4-7) Last Admin: 11/01/17 08:47 Dose: 30 mg Lidocaine (Lidoderm) 1 ea TD DAILY [facility] Last Admin: 11/01/17 08:38 Dose: 1 ea Morphine Sulfate (Morphine) 2 mg IVP Q6 PRN PRN Reason: Pain, severe (8-10) Last Admin: 11/01/17 05:27 Dose: 2 mg Paroxetine HCl (Paxil) 30 mg PO DAILY [facility] Last Admin: 11/01/17 08:36 Dose: 30 mg Ritonavir (Norvir) 100 mg PO DAILY [facility] Last Admin: 11/01/17 08:36 Dose: 100 mg - Labs Labs: 10/31/17 06:00 10/31/17 06:00 PT 10.5 Seconds (9.8-13.1) 10/30/17 16:47 INR 1.0 (0.9-1.2) 10/30/17 16:47 APTT 32.8 Seconds (25.6-37.1) 10/30/17 16:47 - Extremities Exam Additional comments: RUE: shoulder immobilized within sling and roberto swath no swelling, no deformity sensation intact MN/UN/RN motor intact MN/UN/RN radial pulse intact comp soft NT Assessment and Plan (1) Dislocation of right shoulder joint Assessment & Plan: Patient is POD#1 from reduction of dislocated right shoulder doing well -continue immobilization within sling and swath, NWB RUE -pain control as per medicine/pain mgmt -orthopedically stable for discharge -f/u with Dr. Noble Marley in office in 7-10 days -above d/w Dr. Noble Marley in agreement Status: Acute
--- NOTE | 2017-11-01 11:24 | CP.PCM.PN ---
Subjective - Date & Time of Evaluation Date of Evaluation: 11/01/17 Time of Evaluation: 11:00 - Subjective Subjective: 62 y/o M evaluated and examined by bedside. Pt c/o R shoulder pain that is controlled with IV medications. Pt afebrile, tolerating PO, recovering well from yesterday's close reduction and relocation. Objective - Vital Signs/Intake and Output Vital Signs (last 24 hours): Temp Pulse Resp BP Pulse Ox 97.9 F 77 20 149/90 98 11/01/17 08:19 11/01/17 08:19 11/01/17 08:19 11/01/17 08:19 11/01/17 08:19 - Medications Medications: Current Medications Alprazolam (Xanax) 2 mg PO Q12 [facility] Last Admin: 11/01/17 08:40 Dose: 2 mg Bacitracin (Bacitracin) 1 ea TOP TID [facility] Last Admin: 11/01/17 08:39 Dose: 1 ea Darunavir (Prezista) 800 mg PO DAILY [facility] PRN Reason: Protocol Last Admin: 11/01/17 08:36 Dose: 800 mg Enoxaparin Sodium (Lovenox) 40 mg SC DAILY [facility] PRN Reason: Protocol Last Admin: 11/01/17 08:37 Dose: 40 mg Gabapentin (Neurontin) 800 mg PO Q12 [facility] Last Admin: 11/01/17 08:36 Dose: 800 mg Home Med (Patient's Own Medication) 50 unit PO DAILY [facility] PRN Reason: Protocol Last Admin: 11/01/17 08:35 Dose: 50 unit Home Med (Rilpivirine Hcl [Edurant]) 25 mg PO DAILY [facility] Hydrochlorothiazide (Microzide) 12.5 mg PO DAILY [facility] Last Admin: 11/01/17 08:36 Dose: 12.5 mg Ketorolac Tromethamine (Toradol) 30 mg IVP Q6 PRN PRN Reason: Pain, moderate (4-7) Last Admin: 11/01/17 08:47 Dose: 30 mg Lidocaine (Lidoderm) 1 ea TD DAILY [facility] Last Admin: 11/01/17 08:38 Dose: 1 ea Morphine Sulfate (Morphine) 2 mg IVP Q6 PRN PRN Reason: Pain, severe (8-10) Last Admin: 11/01/17 05:27 Dose: 2 mg Paroxetine HCl (Paxil) 30 mg PO DAILY [facility] Last Admin: 11/01/17 08:36 Dose: 30 mg Ritonavir (Norvir) 100 mg PO DAILY [facility] Last Admin: 11/01/17 08:36 Dose: 100 mg - Labs Labs: 10/31/17 06:00 10/31/17 06:00 PT 10.5 Seconds (9.8-13.1) 10/30/17 16:47 INR 1.0 (0.9-1.2) 10/30/17 16:47 APTT 32.8 Seconds (25.6-37.1) 10/30/17 16:47 - Constitutional Appears: No Acute Distress - Head Exam Head Exam: ATRAUMATIC, NORMAL INSPECTION - Eye Exam Eye Exam: EOMI - ENT Exam ENT Exam: Mucous Membranes Moist - Neck Exam Neck Exam: Full ROM. absent: Meningismus - Respiratory Exam Respiratory Exam: Clear to Ausculation Bilateral, Wheezes - Cardiovascular Exam Cardiovascular Exam: +S1, +S2 - GI/Abdominal Exam GI & Abdominal Exam: Soft, Normal Bowel Sounds. absent: Guarding, Tenderness - Neurological Exam Neurological Exam: Alert, Awake Assessment and Plan - Assessment and Plan (Free Text) Assessment: 62 yo male hx HIV and chronic right shoulder pain admitted for altered mental status, fall and right shoulder pain. Chronic R shoulder pain due to dislocation and fracture -Chronic, severe -S/P closed reduction and re-location under anesthesia -IV Morphine 2mg Q6H PRN and Toradol 30mg IV PRN, for analgesia. -R arm immobilizer. -F/U PT/OT recommendations. -Will f/u with Dr Gao upon discharge. Unwitnessed Fall -Cervical, thoracic and L-S spine x-ray were unremarkable for acute pathology. -Head CT negative for acute pathology HIV Asymptomatic -Last CD4: 368, CD4% cells: 10% -Viral load undetectable -Continue home medications. Anxiety -Resume xanax from home medications Neuropathy -C/W Gabapentin Superficial laceration of left 3rd toe: -No active bleeding -No signs of infection -Bacitracin topical TID DVT prophylaxis -scds for now, -NO heparin as pt may go for surgery. Diet: -regular diet
--- NOTE | 2017-11-01 12:28 | CARD ---
APPROVED REPORT EKG Measurement Heart [id number] <Conclusion> Normal sinus rhythm Right bundle branch block Abnormal ECG
[2017-11-02] MEDS: Morphine 4 MG/ML VIAL IVP PRN (00:03)
[2017-11-02] MEDS: Bacitracin 500 Units/gm Oint Foilpak UD TOP SCH ×3 (09:29→16:16)
[2017-11-02] MEDS: Patient's Own Med(TIVICAY 50MG) PO SCH (09:29)
[2017-11-02] MEDS: Enoxaparin 40 mg Syringe SC SCH (09:29)
[2017-11-02] MEDS: Lidocaine 5% Patch TD SCH (09:30)
--- NOTE | 2017-11-02 12:09 | CP.PCM.PN ---
Subjective - Date & Time of Evaluation Date of Evaluation: 11/02/17 Time of Evaluation: 09:00 - Subjective Subjective: Patient states pain in shoulder is better, but is still very painful. Denies numbness/tingling. Objective - Vital Signs/Intake and Output Vital Signs (last 24 hours): Temp Pulse Resp BP Pulse Ox 97.6 F 72 20 169/90 H 95 11/02/17 09:00 11/02/17 09:00 11/02/17 09:00 11/02/17 09:00 11/02/17 09:00 - Medications Medications: Current Medications Alprazolam (Xanax) 2 mg PO Q12 [facility] Last Admin: 11/02/17 09:33 Dose: 2 mg Bacitracin (Bacitracin) 1 ea TOP TID [facility] Last Admin: 11/02/17 09:29 Dose: 1 ea Darunavir (Prezista) 800 mg PO DAILY [facility] PRN Reason: Protocol Last Admin: 11/02/17 09:29 Dose: 800 mg Enoxaparin Sodium (Lovenox) 40 mg SC DAILY [facility] PRN Reason: Protocol Last Admin: 11/02/17 09:29 Dose: 40 mg Gabapentin (Neurontin) 800 mg PO Q12 [facility] Last Admin: 11/02/17 09:29 Dose: 800 mg Home Med (Patient's Own Medication) 50 unit PO DAILY [facility] PRN Reason: Protocol Last Admin: 11/02/17 09:29 Dose: 50 unit Home Med (Rilpivirine Hcl [Edurant]) 25 mg PO DAILY [facility] Hydrochlorothiazide (Microzide) 12.5 mg PO DAILY [facility] Last Admin: 11/02/17 09:29 Dose: 12.5 mg Ketorolac Tromethamine (Toradol) 30 mg IVP Q6 PRN PRN Reason: Pain, moderate (4-7) Last Admin: 11/02/17 05:39 Dose: 30 mg Lidocaine (Lidoderm) 1 ea TD DAILY [facility] Last Admin: 11/02/17 09:30 Dose: 1 ea Morphine Sulfate (Morphine) 2 mg IVP Q6 PRN PRN Reason: Pain, severe (8-10) Last Admin: 11/02/17 00:03 Dose: 2 mg Paroxetine HCl (Paxil) 30 mg PO DAILY [facility] Last Admin: 11/02/17 09:30 Dose: 30 mg Ritonavir (Norvir) 100 mg PO DAILY [facility] Last Admin: 11/02/17 09:29 Dose: 100 mg - Labs Labs: 10/31/17 06:00 10/31/17 06:00 PT 10.5 Seconds (9.8-13.1) 10/30/17 16:47 INR 1.0 (0.9-1.2) 10/30/17 16:47 APTT 32.8 Seconds (25.6-37.1) 10/30/17 16:47 - Extremities Exam Additional comments: Right shoulder: immobilizer and wrap intact, +ROM fingers/wrist, sensation intact rad/med/ulnar nerve distrib, +radial pulse Assessment and Plan (1) Dislocation of right shoulder joint Assessment & Plan: s/p CR in OR keep immobilizer on at all times do not remove again stressed importance to patient at high risk of re-dislocation patient must f/u with 7-[address] Fernandez call for appointment NWB MARTINAE d/w Dr. Fernnadez, agrees with above ortho stable for d/c Status: Acute
--- NOTE | 2017-11-02 12:11 | CARD ---
APPROVED REPORT EKG Measurement Heart [id number] [id number] <Conclusion> Normal sinus rhythm Right bundle branch block Abnormal ECG
--- NOTE | 2017-11-02 13:43 | CP.PCM.DIS ---
Provider - Provider Date of Admission: 10/27/17 08:53 Attending physician: Bridget Aviles MD Primary care physician: Dr. Blankenship at [facility] Consults: Orthopedics: Dr Alcazar Time Spent in preparation of Discharge (in minutes): 30 Diagnosis - Discharge Diagnosis (1) Chronic shoulder pain Status: Acute Comment: -S/P Closed Reduction of dislocated R shoulder. -Will f/u with orthopedist Dr Alcazar within 7 days. (2) Dislocation of right shoulder joint Status: Acute Comment: -S/P Closed Reduction of dislocated R shoulder. Hospital Course - Lab Results Lab Results: Most Recent Lab Values WBC 5.4 K/uL (4.8-10.8) 10/31/17 06:00 RBC 4.57 Mil/uL (4.40-5.90) 10/31/17 06:00 Hgb 13.2 g/dL (12.0-18.0) 10/31/17 06:00 Hct 39.5 % (35.0-51.0) 10/31/17 06:00 MCV 86.6 fl (80.0-94.0) 10/31/17 06:00 MCH 28.9 pg (27.0-31.0) 10/31/17 06:00 MCHC 33.3 g/dL (33.0-37.0) 10/31/17 06:00 RDW 15.2 % (11.5-14.5) H 10/31/17 06:00 Plt Count 215 K/uL (130-400) 10/31/17 06:00 MPV 9.6 fl (7.2-11.7) 10/27/17 06:30 Neut % (Auto) 54.9 % (50.0-75.0) 10/27/17 06:30 Lymph % (Auto) 35.9 % (20.0-40.0) 10/27/17 06:30 [place] % (Auto) 7.1 % (0.0-10.0) 10/27/17 06:30 Eos % (Auto) 1.0 % (0.0-4.0) 10/27/17 06:30 Baso % (Auto) 1.1 % (0.0-2.0) 10/27/17 06:30 Neut # (Auto) 4.2 K/uL (1.8-7.0) 10/27/17 06:30 Lymph # (Auto) 2.8 K/uL (1.0-4.3) 10/27/17 06:30 [place] # (Auto) 0.5 K/uL (0.0-0.8) 10/27/17 06:30 Eos # (Auto) 0.1 K/uL (0.0-0.7) 10/27/17 06:30 Baso # (Auto) 0.1 K/uL (0.0-0.2) 10/27/17 06:30 PT 10.5 Seconds (9.8-13.1) 10/30/17 16:47 INR 1.0 (0.9-1.2) 10/30/17 16:47 APTT 32.8 Seconds (25.6-37.1) 10/30/17 16:47 Sodium 144 mmol/l (132-148) 10/31/17 06:00 Potassium 3.7 MMOL/L (3.6-5.0) 10/31/17 06:00 Chloride 100 mmol/L (98-107) 10/31/17 06:00 Carbon Dioxide 31 mmol/L (22-30) H 10/31/17 06:00 Anion Gap 17 (10-20) 10/31/17 06:00 BUN 21 mg/dl (9-20) H 10/31/17 06:00 Creatinine 1.1 mg/dl (0.8-1.5) 10/31/17 06:00 Est GFR ( Amer) > 60 10/31/17 06:00 Est GFR (Non-Af Amer) > 60 10/31/17 06:00 Random Glucose 95 mg/dL (75-110) 10/31/17 06:00 Calcium 9.0 mg/dL (8.4-10.2) 10/31/17 06:00 Total Bilirubin 0.5 mg/dl (0.2-1.3) 10/30/17 16:47 Direct Bilirubin 0.5 mg/ml (0.0-0.4) H 10/30/17 16:47 AST 34 U/L (17-59) 10/30/17 16:47 ALT 39 U/L (21-72) 10/30/17 16:47 Alkaline Phosphatase 101 U/L (38-126) 10/30/17 16:47 Total Protein 7.6 G/DL (6.3-8.2) 10/30/17 16:47 Albumin 3.6 g/dL (3.5-5.0) 10/30/17 16:47 Globulin 3.9 gm/dL (2.2-3.9) 10/30/17 16:47 Albumin/Globulin Ratio 0.9 (1.0-2.1) L 10/30/17 16:47 Urine Opiates Screen Negative (NEGATIVE) 10/27/17 07:40 Urine Methadone Screen Negative (NEGATIVE) 10/27/17 07:40 Ur Barbiturates Screen Negative (NEGATIVE) 10/27/17 07:40 Ur Phencyclidine Scrn Negative (NEGATIVE) 10/27/17 07:40 Ur Amphetamines Screen Negative (NEGATIVE) 10/27/17 07:40 U Benzodiazepines Scrn Positive (NEGATIVE) 10/27/17 07:40 U Oth Cocaine Metabols Negative (NEGATIVE) 10/27/17 07:40 U Cannabinoids Screen Negative (NEGATIVE) 10/27/17 07:40 Alcohol, Quantitative < 10 mg/dl (0-10) 10/27/17 06:30 Blood Type A POSITIVE 10/30/17 16:40 Antibody Screen Negative 10/30/17 16:40 BBK History Checked Patient has bt 10/30/17 16:40 - Hospital Course Hospital Course: 62 yo male hx HIV and chronic right shoulder pain admitted for altered mental status, fall and chronic right shoulder pain. -Head CT: negative for acute pathology. AMS resolved after a day of being admitted. -Cervical, thoracic and L-S spine x-ray were unremarkable. -R shoulder X ray showed recurrent ant inf dislocation with fracture fragments inferiorly to pre-existing fracture. Pt had a Closed Reduction of dislocated R shoulder in the OR on 10/31/17. Pt on POD 2, remained stable after procedure, tolerated PO, pain well- controlled. Pt is discharged with instruction to f/u with orthopedist Dr Judy Marley within 7 days. - Date & Time of H&P Date of H&P: 10/27/17 Time of H&P: 11:42 Discharge Exam - Head Exam Head Exam: ATRAUMATIC, NORMAL INSPECTION - Eye Exam Eye Exam: EOMI, Normal appearance - Neck Exam Neck exam: Full Rom - Respiratory Exam Respiratory Exam: Clear to PA & Lateral, UNREMARKABLE - Cardiovascular Exam Cardiovascular Exam: REGULAR RHYTHM, +S1, +S2 - GI/Abdominal Exam GI & Abdominal Exam: Normal Bowel Sounds, Soft, Unremarkable. absent: Tenderness - Extremities Exam Extremities exam: full ROM, normal inspection - Neurological Exam Neurological exam: Alert, Oriented x3 Discharge Plan - Discharge Medications Prescriptions: Alprazolam [Xanax] 2 mg PO Q12 #10 tablet - Follow Up Plan Condition: FAIR Disposition: HOME/ ROUTINE Instructions: Shoulder Dislocation (DC), Closed Fracture Reduction (DC), Weakness (ED) Additional Instructions: -Follow up with orthopedic surgeon, Dr Gao, within 7-10 days. Phone: Referrals: Darcy Perez MD [Staff Provider] -
--- NOTE | 2017-11-03 06:29 | CP.PCM.PN ---
Subjective - Date & Time of Evaluation Date of Evaluation: 11/03/17 Time of Evaluation: 07:40 - Subjective Subjective: Pt seen and examined at bedside. Pt denies any problems or complaints overnight. Denies fevers/chills, n/v/d, chest pain, SOB, dyspnea, cough, or abdominal pain. Objective - Vital Signs/Intake and Output Vital Signs (last 24 hours): Temp Pulse Resp BP Pulse Ox 98.3 F 77 19 155/92 H 97 11/03/17 00:00 11/03/17 00:00 11/03/17 00:00 11/03/17 00:00 11/03/17 00:00 - Medications Medications: Current Medications Bacitracin (Bacitracin) 1 ea TOP TID [facility] Last Admin: 11/02/17 16:16 Dose: 1 ea Clonazepam (Klonopin) 1 mg PO Q12 [facility] Last Admin: 11/02/17 21:30 Dose: 1 mg Darunavir (Prezista) 800 mg PO DAILY [facility] PRN Reason: Protocol Last Admin: 11/02/17 09:29 Dose: 800 mg Enoxaparin Sodium (Lovenox) 40 mg SC DAILY [facility] PRN Reason: Protocol Last Admin: 11/02/17 09:29 Dose: 40 mg Gabapentin (Neurontin) 800 mg PO Q12 [facility] Last Admin: 11/02/17 21:30 Dose: 800 mg Home Med (Patient's Own Medication) 50 unit PO DAILY [facility] PRN Reason: Protocol Last Admin: 11/02/17 09:29 Dose: 50 unit Home Med (Rilpivirine Hcl [Edurant]) 25 mg PO DAILY [facility] Hydrochlorothiazide (Microzide) 12.5 mg PO DAILY [facility] Last Admin: 11/02/17 09:29 Dose: 12.5 mg Ketorolac Tromethamine (Toradol) 30 mg IVP Q6 PRN PRN Reason: Pain, moderate (4-7) Last Admin: 11/02/17 22:04 Dose: 30 mg Lidocaine (Lidoderm) 1 ea TD DAILY [facility] Last Admin: 11/02/17 09:30 Dose: 1 ea Morphine Sulfate (Morphine) 2 mg IVP Q6 PRN PRN Reason: Pain, severe (8-10) Last Admin: 11/02/17 00:03 Dose: 2 mg Paroxetine HCl (Paxil) 30 mg PO DAILY [facility] Last Admin: 11/02/17 09:30 Dose: 30 mg Ritonavir (Norvir) 100 mg PO DAILY [facility] Last Admin: 11/02/17 09:29 Dose: 100 mg - Labs Labs: 10/31/17 06:00 10/31/17 06:00 PT 10.5 Seconds (9.8-13.1) 10/30/17 16:47 INR 1.0 (0.9-1.2) 10/30/17 16:47 APTT 32.8 Seconds (25.6-37.1) 10/30/17 16:47 - Additional Findings Additional findings: - Head Exam Head Exam: ATRAUMATIC, NORMAL INSPECTION - Eye Exam Eye Exam: EOMI, Normal appearance - Neck Exam Neck exam: Full Rom - Respiratory Exam Respiratory Exam: Clear to PA & Lateral, UNREMARKABLE - Cardiovascular Exam Cardiovascular Exam: REGULAR RHYTHM, +S1, +S2 - GI/Abdominal Exam GI & Abdominal Exam: Normal Bowel Sounds, Soft, Unremarkable. absent: Tenderness - Extremities Exam Extremities exam: full ROM of lower extremities, normal inspection Additional information: Right shoulder immobilized within sling and swath; sensation intact; distal pulse intact - Neurological Exam Neurological exam: Alert, Oriented x3 Assessment and Plan - Assessment and Plan (Free Text) Assessment: 62 yo male hx HIV and chronic right shoulder pain admitted for altered mental status, fall and right shoulder pain. Chronic R shoulder s/p closed reduction -Ortho onboard -Keep immobilizer on at all times; high risk of re-dislocation; as per Ortho -IV Morphine 2mg Q6H PRN and Toradol 30mg IV PRN, for analgesia. -R arm immobilizer. -f/u PT/OT recommendations. -f/u with Dr Gao 5-7 days after discharge HTN -Recently elevated 150s-170s/90s -Added Losartan 25mg PO Daily -c/w HCTZ 12.5mg PO Daily -f/u BPs HIV Asymptomatic -Last CD4: 368, CD4% cells: 10% -Viral load undetectable -Continue home medications. Anxiety -Clonazapam 1mg PO BID Neuropathy -C/W Gabapentin DVT prophylaxis -Lovenox 40mg SC HS
[2017-11-03] MEDS: Lidocaine 5% Patch TD SCH (08:40)
[2017-11-03] MEDS: Bacitracin 500 Units/gm Oint Foilpak UD TOP SCH ×3 (08:40→16:44)
[2017-11-03] MEDS: Enoxaparin 40 mg Syringe SC SCH (08:42)
[2017-11-03] MEDS: Patient's Own Med(TIVICAY 50MG) PO SCH (08:43)
[2017-11-04] MEDS: Morphine 4 MG/ML VIAL IVP PRN (00:23)
--- NOTE | 2017-11-04 09:23 | CP.PCM.PN ---
Subjective - Date & Time of Evaluation Date of Evaluation: 11/04/17 Time of Evaluation: 09:21 - Subjective Subjective: 8o y/o M evaluated and examined by bedside. Pt states R shoulder pain has improved a little since surgery. Pt afebrile, tolerating PO. No acute events overnight. Objective - Vital Signs/Intake and Output Vital Signs (last 24 hours): Temp Pulse Resp BP Pulse Ox 98 F 77 20 154/104 H 98 11/04/17 09:00 11/04/17 09:00 11/04/17 09:00 11/04/17 09:00 11/04/17 09:00 - Medications Medications: Current Medications Bacitracin (Bacitracin) 1 ea TOP TID [facility] Last Admin: 11/03/17 16:44 Dose: 1 ea Clonazepam (Klonopin) 1 mg PO Q12 [facility] Last Admin: 11/03/17 20:45 Dose: 1 mg Darunavir (Prezista) 800 mg PO DAILY [facility] PRN Reason: Protocol Last Admin: 11/03/17 08:43 Dose: 800 mg Enoxaparin Sodium (Lovenox) 40 mg SC DAILY [facility] PRN Reason: Protocol Last Admin: 11/03/17 08:42 Dose: 40 mg Gabapentin (Neurontin) 800 mg PO Q12 [facility] Last Admin: 11/03/17 20:45 Dose: 800 mg Home Med (Patient's Own Medication) 50 unit PO DAILY [facility] PRN Reason: Protocol Last Admin: 11/03/17 08:43 Dose: 50 unit Home Med (Rilpivirine Hcl [Edurant]) 25 mg PO DAILY [facility] Hydrochlorothiazide (Microzide) 12.5 mg PO DAILY [facility] Last Admin: 11/03/17 08:42 Dose: 12.5 mg Ketorolac Tromethamine (Toradol) 30 mg IVP Q6 PRN PRN Reason: Pain, moderate (4-7) Last Admin: 11/03/17 16:45 Dose: 30 mg Lidocaine (Lidoderm) 1 ea TD DAILY [facility] Last Admin: 11/03/17 08:40 Dose: 1 ea Losartan Potassium (Cozaar) 25 mg PO DAILY [facility] Last Admin: 11/03/17 15:14 Dose: 25 mg Morphine Sulfate (Morphine) 2 mg IVP Q6 PRN PRN Reason: Pain, severe (8-10) Paroxetine HCl (Paxil) 30 mg PO DAILY [facility] Last Admin: 11/03/17 08:43 Dose: 30 mg Ritonavir (Norvir) 100 mg PO DAILY [facility] Last Admin: 11/03/17 08:43 Dose: 100 mg - Labs Labs: 10/31/17 06:00 10/31/17 06:00 PT 10.5 Seconds (9.8-13.1) 10/30/17 16:47 INR 1.0 (0.9-1.2) 10/30/17 16:47 APTT 32.8 Seconds (25.6-37.1) 10/30/17 16:47 - Constitutional Appears: No Acute Distress - Eye Exam Eye Exam: EOMI - ENT Exam ENT Exam: Mucous Membranes Moist - Neck Exam Neck Exam: Full ROM. absent: Meningismus - Respiratory Exam Respiratory Exam: Clear to Ausculation Bilateral, NORMAL BREATHING PATTERN - Cardiovascular Exam Cardiovascular Exam: +S1, +S2 - GI/Abdominal Exam GI & Abdominal Exam: Soft, Normal Bowel Sounds. absent: Guarding, Rigid, Tenderness, Rebound - Extremities Exam Extremities Exam: Tenderness. absent: Calf Tenderness Additional comments: R arm on a immobilizer. - Neurological Exam Neurological Exam: Alert, Awake, Oriented x3 Assessment and Plan (1) Chronic shoulder pain Status: Acute (2) Dislocation of right shoulder joint Status: Acute - Assessment and Plan (Free Text) Assessment: 62 yo male hx HIV and chronic right shoulder pain admitted for altered mental status, fall and right shoulder pain. Chronic R shoulder s/p closed reduction -Maintain immobilizer on at all times; high risk of re-dislocation; as per Ortho -IV Morphine 2mg Q6H PRN and Toradol 30mg IV PRN, for analgesia. -R arm immobilizer. -f/u PT/OT recommendations. -f/u with Dr Gao 5-7 days after discharge HTN -c/w HCTZ 12.5mg PO Daily and Losartan 25mg PO Daily -f/u BPs HIV Asymptomatic -Last CD4: 368, CD4% cells: 10% -Viral load undetectable -Continue home medications. Anxiety -Clonazepam 1mg PO BID Neuropathy -C/W Gabapentin DVT prophylaxis -Lovenox 40mg SC HS
[2017-11-04] MEDS: Bacitracin 500 Units/gm Oint Foilpak UD TOP SCH ×3 (09:27→16:49)
[2017-11-04] MEDS: Enoxaparin 40 mg Syringe SC SCH (09:28)
[2017-11-04] MEDS: Lidocaine 5% Patch TD SCH (09:29)
[2017-11-04] MEDS: Patient's Own Med(TIVICAY 50MG) PO SCH (09:29)
[2017-11-05 07:43] LABS: BLOOD UREA NITROGEN 23 mg/dl (9-20); CALCIUM 9.4 mg/dL (8.4-10.2); GFR AFRICAN-AMERICAN > 60; GFR NON-AFRICAN AMERICAN > 60; HEMOGLOBIN 14.1 g/dL (12.0-18.0); MEAN CORPUSCULAR HGB CONC 33.7 g/dL (33.0-37.0); RBC 4.84 Mil/uL (4.40-5.90); RED CELL DISTRIBUTION WIDTH 14.8 % (11.5-14.5); WHITE BLOOD COUNT 6.2 K/uL (4.8-10.8)
[2017-11-05 07:59] VITALS: BP 135/83; RESP 19; TEMP 97.9; O2SAT 99
[2017-11-05] MEDS: Lidocaine 5% Patch TD SCH (08:27)
[2017-11-05] MEDS: Bacitracin 500 Units/gm Oint Foilpak UD TOP SCH ×3 (08:27→13:47)
[2017-11-05] MEDS: Enoxaparin 40 mg Syringe SC SCH (08:28)
[2017-11-05] MEDS: Patient's Own Med(TIVICAY 50MG) PO SCH (08:29)
[2017-11-05 08:30] VITALS: PULSE 100
[2017-11-05] MEDS ORDERED: Oxycodone/Acetaminophen 5/325 mg Tab PO PRN (12:20)
--- NOTE | 2017-11-05 15:17 | CP.PCM.DIS ---
Provider - Provider Date of Admission: 10/27/17 08:53 Attending physician: Bridget Aviles MD Primary care physician: Dr. Blankenship at [facility] Consults: Orthopedics: Dr Arthur Time Spent in preparation of Discharge (in minutes): 30 Diagnosis - Discharge Diagnosis (1) Chronic shoulder pain Status: Acute Comment: -Strict Immobilization. -F/U with Dr Ashford, orthopedic surgeon. (2) Dislocation of right shoulder joint Status: Acute Hospital Course - Lab Results Lab Results: Most Recent Lab Values WBC 6.2 K/uL (4.8-10.8) 11/05/17 06:50 RBC 4.84 Mil/uL (4.40-5.90) 11/05/17 06:50 Hgb 14.1 g/dL (12.0-18.0) 11/05/17 06:50 Hct 41.7 % (35.0-51.0) 11/05/17 06:50 MCV 86.0 fl (80.0-94.0) 11/05/17 06:50 MCH 29.0 pg (27.0-31.0) 11/05/17 06:50 MCHC 33.7 g/dL (33.0-37.0) 11/05/17 06:50 RDW 14.8 % (11.5-14.5) H 11/05/17 06:50 Plt Count 221 K/uL (130-400) 11/05/17 06:50 MPV 9.6 fl (7.2-11.7) 10/27/17 06:30 Neut % (Auto) 54.9 % (50.0-75.0) 10/27/17 06:30 Lymph % (Auto) 35.9 % (20.0-40.0) 10/27/17 06:30 [place] % (Auto) 7.1 % (0.0-10.0) 10/27/17 06:30 Eos % (Auto) 1.0 % (0.0-4.0) 10/27/17 06:30 Baso % (Auto) 1.1 % (0.0-2.0) 10/27/17 06:30 Neut # (Auto) 4.2 K/uL (1.8-7.0) 10/27/17 06:30 Lymph # (Auto) 2.8 K/uL (1.0-4.3) 10/27/17 06:30 [place] # (Auto) 0.5 K/uL (0.0-0.8) 10/27/17 06:30 Eos # (Auto) 0.1 K/uL (0.0-0.7) 10/27/17 06:30 Baso # (Auto) 0.1 K/uL (0.0-0.2) 10/27/17 06:30 PT 10.5 Seconds (9.8-13.1) 10/30/17 16:47 INR 1.0 (0.9-1.2) 10/30/17 16:47 APTT 32.8 Seconds (25.6-37.1) 10/30/17 16:47 Sodium 143 mmol/l (132-148) 11/05/17 06:50 Potassium 4.0 MMOL/L (3.6-5.0) 11/05/17 06:50 Chloride 101 mmol/L (98-107) 11/05/17 06:50 Carbon Dioxide 27 mmol/L (22-30) 11/05/17 06:50 Anion Gap 19 (10-20) 11/05/17 06:50 BUN 23 mg/dl (9-20) H 11/05/17 06:50 Creatinine 1.0 mg/dl (0.8-1.5) 11/05/17 06:50 Est GFR ( Amer) > 60 11/05/17 06:50 Est GFR (Non-Af Amer) > 60 11/05/17 06:50 Random Glucose 104 mg/dL (75-110) 11/05/17 06:50 Calcium 9.4 mg/dL (8.4-10.2) 11/05/17 06:50 Total Bilirubin 0.5 mg/dl (0.2-1.3) 10/30/17 16:47 Direct Bilirubin 0.5 mg/ml (0.0-0.4) H 10/30/17 16:47 AST 34 U/L (17-59) 10/30/17 16:47 ALT 39 U/L (21-72) 10/30/17 16:47 Alkaline Phosphatase 101 U/L (38-126) 10/30/17 16:47 Total Protein 7.6 G/DL (6.3-8.2) 10/30/17 16:47 Albumin 3.6 g/dL (3.5-5.0) 10/30/17 16:47 Globulin 3.9 gm/dL (2.2-3.9) 10/30/17 16:47 Albumin/Globulin Ratio 0.9 (1.0-2.1) L 10/30/17 16:47 Urine Opiates Screen Negative (NEGATIVE) 10/27/17 07:40 Urine Methadone Screen Negative (NEGATIVE) 10/27/17 07:40 Ur Barbiturates Screen Negative (NEGATIVE) 10/27/17 07:40 Ur Phencyclidine Scrn Negative (NEGATIVE) 10/27/17 07:40 Ur Amphetamines Screen Negative (NEGATIVE) 10/27/17 07:40 U Benzodiazepines Scrn Positive (NEGATIVE) 10/27/17 07:40 U Oth Cocaine Metabols Negative (NEGATIVE) 10/27/17 07:40 U Cannabinoids Screen Negative (NEGATIVE) 10/27/17 07:40 Alcohol, Quantitative < 10 mg/dl (0-10) 10/27/17 06:30 Blood Type A POSITIVE 10/30/17 16:40 Antibody Screen Negative 10/30/17 16:40 BBK History Checked Patient has bt 10/30/17 16:40 - Hospital Course Hospital Course: 62 yo male hx HIV and chronic right shoulder pain admitted for altered mental status, fall and chronic right shoulder pain. -Head CT: negative for acute pathology. AMS resolved after a day of being admitted. -Cervical, thoracic and L-S spine x-ray were unremarkable. -R shoulder X ray showed recurrent ant inf dislocation with fracture fragments inferiorly to pre-existing fracture. Pt had a Closed Reduction of dislocated R shoulder in the OR on 10/31/17. -PT DID NOT FOLLOW INSTRUCTIONS FOR STRICT IMMOBILIZATION. PT TOOK RIGHT ARM OUT OF IMMOBILIZER AT MANY TIMES AFTER PROCEDURE. Pt on POD 5, remained stable after procedure, tolerated PO, pain still present but tolerable. Pt is discharged with instruction to f/u with orthopedist Dr Judy Marley within 7 days. - Date & Time of H&P Date of H&P: 10/27/17 Time of H&P: 11:42 Discharge Exam - Head Exam Head Exam: ATRAUMATIC, NORMAL INSPECTION Discharge Plan - Discharge Medications Prescriptions: clonazePAM [Klonopin] 1 mg PO Q12 #10 tab Clonazepam [Klonopin] 2 mg PO Q12H #10 tablet hydroCHLOROthiazide [Hydrodiuril] 25 mg PO DAILY #30 tab - Follow Up Plan Condition: FAIR Disposition: HOME/ ROUTINE Instructions: Shoulder Dislocation (DC), Closed Fracture Reduction (DC), Weakness (ED) Additional Instructions: -Follow up with orthopedic surgeon, Dr Gao, within 7-10 days. Phone: Referrals: Darcy Perez MD [Staff Provider] -
--- NOTE | 2017-11-05 16:21 | CP.PCM.PN ---
Subjective - Date & Time of Evaluation Date of Evaluation: 11/05/17 Time of Evaluation: 14:00 - Subjective Subjective: Patient seen and examined at bedside. Pain controlled. Seen without immobilizing roberto bandage, removed due to pain. No new complaints. Objective - Vital Signs/Intake and Output Vital Signs (last 24 hours): Temp Pulse Resp BP Pulse Ox 97.9 F 100 H 19 135/83 99 11/05/17 07:58 11/05/17 08:27 11/05/17 07:58 11/05/17 08:27 11/05/17 07:58 - Medications Medications: Current Medications Bacitracin (Bacitracin) 1 ea TOP TID [facility] Last Admin: 11/05/17 13:47 Dose: Not Given Clonazepam (Klonopin) 1 mg PO Q12 [facility] Last Admin: 11/05/17 08:39 Dose: 1 mg Darunavir (Prezista) 800 mg PO DAILY [facility] PRN Reason: Protocol Last Admin: 11/05/17 08:29 Dose: 800 mg Enoxaparin Sodium (Lovenox) 40 mg SC DAILY [facility] PRN Reason: Protocol Last Admin: 11/05/17 08:28 Dose: 40 mg Gabapentin (Neurontin) 800 mg PO Q12 [facility] Last Admin: 11/05/17 08:29 Dose: 800 mg Home Med (Patient's Own Medication) 50 unit PO DAILY [facility] PRN Reason: Protocol Last Admin: 11/05/17 08:29 Dose: 50 unit Home Med (Rilpivirine Hcl [Edurant]) 25 mg PO DAILY [facility] Hydrochlorothiazide (Hydrodiuril) 25 mg PO DAILY [facility] Last Admin: 11/05/17 08:27 Dose: 25 mg Ketorolac Tromethamine (Toradol) 30 mg IVP Q6 PRN PRN Reason: Pain, Mild (1-3) Lidocaine (Lidoderm) 1 ea TD DAILY [facility] Last Admin: 11/05/17 08:27 Dose: 1 ea Losartan Potassium (Cozaar) 25 mg PO DAILY [facility] Last Admin: 11/05/17 08:27 Dose: 25 mg Oxycodone/Acetaminophen (Percocet 5/325 Mg Tab) 1 tab PO Q6 PRN PRN Reason: Pain, severe (8-10) Stop: 11/08/17 12:21 Last Admin: 11/05/17 16:13 Dose: 1 tab Paroxetine HCl (Paxil) 30 mg PO DAILY [facility] Last Admin: 11/05/17 08:29 Dose: 30 mg Ritonavir (Norvir) 100 mg PO DAILY [facility] Last Admin: 11/05/17 08:29 Dose: 100 mg Tramadol HCl (Ultram) 50 mg PO Q6 PRN PRN Reason: Pain, moderate (4-7) - Labs Labs: 11/05/17 06:50 11/05/17 06:50 PT 10.5 Seconds (9.8-13.1) 10/30/17 16:47 INR 1.0 (0.9-1.2) 10/30/17 16:47 APTT 32.8 Seconds (25.6-37.1) 10/30/17 16:47 - Extremities Exam Additional comments: RUE: shoulder within sling no swelling, no deformity sensation intact MN/UN/RN motor intact MN/UN/RN radial pulse intact comp soft NT Assessment and Plan (1) Dislocation of right shoulder joint Assessment & Plan: Patient is POD#5 from reduction of dislocated right shoulder doing well -Re-established sling and swath, reinforced importance of immobilization of RUE , NWB RUE -orthopedically stable for discharge -f/u with Dr. Noble Marley in office in 7-10 days -above d/w Dr. Noble Marley in agreement Status: Acute
--- NOTE | 2017-11-14 14:57 | OP ---
PROCEDURE DATE: 10/31/2017 PREOPERATIVE DIAGNOSES: Right shoulder, 1. Anterior, inferior glenohumeral joint dislocation. 2. Large Hill-Sachs deformity. 3. Multiple dislocation events. POSTOPERATIVE DIAGNOSES: Right shoulder, 1. Anterior, inferior glenohumeral joint dislocation. 2. Large Hill-Sachs deformity. 3. Multiple dislocation events. PROCEDURE: Right shoulder anterior glenohumeral joint dislocation closed reduction/relocation under anesthesia. SURGEON: Darcy Ashford MD CHARGE OUT CLERK: None. TYPE OF ANESTHESIA: General endotracheal anesthesia. SPECIMENS: None. COMPLICATIONS: None. IMPLANTS: None. ESTIMATED BLOOD LOSS: 0 mL. DRAINS: None. DISPOSITION: The patient was extubated from PACU in stable condition and tolerated the procedure well. 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 The focus of his ER evaluation on admission was his general medical status and fatigue and generalized weakness. He has had multiple ER visits in the past for right shoulder pain over the past 2 months. The patient is a very poor historian and states that his right shoulder has had multiple dislocation events and relocations at multiple ERs. This last dislocation event he stated was at least a month ago, but he was uncertain. In review of imaging, there was a chest x-ray in 09/2017 as [address] chest CT on 09/02/2017 that showed that the right shoulder was located at least from that one view. The patient was also complaining of numbness in the ulnar nerve distribution along the right hand pinky palmar and dorsal aspect that was occasional with the tingling. He was admitted to the medical service on 10/27/2017 for evaluation of his generalized weakness when he started to complain of the right shoulder pain. Orthopedic consultation was placed and he was evaluated by the Orthopedic PA. After review of medical records and imaging confirmed the diagnosis of right shoulder anterior, inferior [id number] dislocation. The CT of the shoulder done during the 10/09/2017 ER visit showed that there was also an acute hemarthrosis in the right shoulder that also leans towards an [id number] event with a recent dislocation. Putting together the fragments of history, they were able to put together combined with the patient's poor history and our limited information that we were able to put together, we ascertain that he has multiple right shoulder dislocations with the most recent dislocation at least occurring in the past 4 weeks. He has also had ulnar nerve symptoms with this most recent dislocation event. He was indicated for close versus open reduction of the right glenohumeral joint under anesthesia. The risks, benefits, and alternatives of procedure were discussed at length with the patient with the risks including, but not limited to infection, neurovascular damage, need for further surgery, development of blood clots including DVT and PE, recurrent dislocation, worsening of neurovascular symptoms, iatrogenic injury including fracture, anesthesia reactions including . After answering all of his questions, the patient stated that he understood the risks and wished to proceed with the procedure. After obtaining medical clearance, he was placed on the elective OR schedule on 10/31/2017 at [facility]. PROCEDURE IN DETAIL: The patient was identified in the preoperative holding area and the right shoulder was marked for surgery. Once again as described above, the risks, benefits, and alternatives to procedure were discussed at length with the patient and informed consent was obtained. After having a brief discussion with anesthesia staff, the patient was taken to the OR and placed in a well-padded operating room table. An initial time-out was done with the surgeon, anesthesia staff, OR staff, all in agreement with the patient, procedure being done, and extremity being operated on. General anesthesia was administered without difficulty or complications. Biplanar fluoroscopic imaging was used to confirm that the right shoulder was indeed completely dislocated in an anterior, inferior direction. A closed reduction attempt was carried out and the glenohumeral joint was indeed relocated/reduced with a standard shoulder reduction maneuver. The humeral head still appeared to be subluxed and the shoulder was dislocated again on purpose to free up the postop tissue that was assumed to be caught in the glenohumeral joint and a repeat relocation was carried out that indeed show there is a well-seated humeral head within glenohumeral joint. Final tri-planar and dynamic fluoroscopic imaging was taking confirming on at least three views that the glenohumeral joint was indeed anatomically reduced. The patient was then placed in a well-padded sling with multiple GEORGE wrap Swathe to immobilize the shoulder and right upper extremity against his chest. This was done as the patient has shown multiple episodes of noncompliance with other medical and Orthopedic recommendations. The patient was then awakened from anesthesia and transferred to PACU in stable condition and tolerated the procedure well. DISPOSITION: The patient will remain as an inpatient as long as he is being treated for his medical issues. Neurovascular exam done opposed relocation in PACU revealed that he was neurovascularly intact with no change in neurovascular status. In terms of definitive treatment, the patient understand that he required a large reconstruction with bone grafting to the large Hill-Sachs defect to provide the stability that he needs that will require a shoulder specialist once the soft tissue comes down. It was recommended that he will talk to his insurance carrier . Once he recovers as an inpatient, he will be discharged and he can follow up in my office at [facility] within one week and the information has been given to the patient. He is also instructed that he can start to seek out the shoulder specialist for the definitive larger procedure as well. Darcy Ashford MD
== END 2017-11-05 17:30 | DRG 253 ==
LOC: H.ER 04:50 → H.ERHOLD 08:53 → H.MEDSURG1 11:37
PROVIDERS: ADMIT Family Medicine Geriatric Medicine; ATTEND Family Medicine Geriatric Medicine
PROC: 0RSJXZZ Reposition Right Shoulder Joint, External Approach (ICD-10-PCS; principal; 2017-10-31 10:45)
DX: M24.411 Recurrent dislocation, right shoulder (principal); J44.9 Chronic obstructive pulmonary disease, unspecified; F41.9 Anxiety disorder, unspecified; G62.9 Polyneuropathy, unspecified; G89.29 Other chronic pain; I10 Essential (primary) hypertension; Z88.0 Allergy status to penicillin; Z88.2 Allergy status to sulfonamides; R91.1 Solitary pulmonary nodule; F17.210 Nicotine dependence, cigarettes, uncomplicated; Z21 Asymptomatic human immunodeficiency virus [HIV] infection status; S42.291A Other displaced fracture of upper end of right humerus, initial encounter for closed fracture; X58.XXXA Exposure to other specified factors, initial encounter; S91.115A Laceration without foreign body of left lesser toe(s) without damage to nail, initial encounter; R41.82 Altered mental status, unspecified; W06.XXXA Fall from bed, initial encounter; M84.411D Pathological fracture, right shoulder, subsequent encounter for fracture with routine healing